=== PATIENT | male | born 1930 | race Two or more races ===

== ENCOUNTER 2017-01-13 00:54 | Inpatient (IN) | payer MEDICARE, MEDICAID ==
[~2017-01-13] VITALS: Ht 165.1 cm; Wt 64.0 kg
[2017-01-13 04:48] VITALS: BP 152/82
[2017-01-13] MEDS ORDERED: LORazepam Inj 2mg/ml 1ml IV PRN (05:15)
[2017-01-13 08:00] VITALS: BP 100/56
[2017-01-13 09:55] LABS: BASOPHILS % (AUTO) 0.7 % (0.0-2.0); EOSINOPHILS % (AUTO) 5.7 % (0.0-3.0); LYMPHOCYTES % (AUTO) 40.8 % (20.0-45.0); MEAN CORPUSCULAR HEMOGLOBIN 33.6 PG (27.0-31.0); MEAN CORPUSCULAR HGB CONC 34.8 G/DL (32.0-36.0); MEAN CORPUSCULAR VOLUME 96 FL (80-99); MONOCYTES % (AUTO) 8.1 % (1.0-10.0); NEUTROPHILS % (AUTO) 44.7 % (45.0-75.0); PLATELET COUNT 206 K/UL (150-450); RED BLOOD COUNT 3.21 M/UL (4.70-6.10); RED CELL DISTRIBUTION WIDTH 12.2 % (11.6-14.8); WHITE BLOOD COUNT 4.8 K/UL (4.8-10.8)
--- NOTE | 2017-01-13 09:58 | Consultation ---
History of Present Illness General Date patient seen: Jan 13, 2017 Referring physician: Dr. Weston Reason for Consultation: inpatient manageemnt Present Illness HPI 86 year old male with hx of CVA, dementia, bed bound lives at home with 24 hour care-housekeeper caregiver was taken to [facility] with CC of new onset seizures. He was treated initially and was [place] [facility] [place]. Pt's grand daughter is at the bed site who gives the PMH. Pt looks comfortable. Apparently understands an indigenous dialect of [place] language. Allergies: Coded Allergies: NO KNOWN ALLERGIES (Verified Allergy, Unknown, 01/13/17) Patient History Healthcare decision maker Resuscitation status Full Code Advanced Directive on File No Past Medical/Surgical History Past Medical/Surgical History: (1) Dementia (2) CVA (cerebral vascular accident) (3) Limited mobility (4) At high risk for aspiration Review of Systems All Other Systems: negative except mentioned in HPI Physical Exam General Appearance: WD/WN Lines, tubes and drains: peripheral, central line, trach HEENT: normocephalic, atraumatic Neck: non-tender, normal alignment Respiratory/Chest: chest wall non-tender, normal breath sounds Breasts: no masses Cardiovascular/Chest: normal peripheral pulses Abdomen: normal bowel sounds Last 24 Hour Vital Signs Date Time Temp Pulse Resp B/P (MAP) Pulse Ox O2 Delivery O2 Flow Rate FiO2 01/13/17 08:00 97.7 56 21 100/56 96 Nasal Cannula 2.0 01/13/17 04:48 97.9 71 18 152/82 96 Nasal Cannula 2.8 01/13/17 04:10 70 Laboratory Tests Test 01/13/17 09:27 White Blood Count Pending Red Blood Count Pending Hemoglobin Pending Hematocrit Pending Mean Corpuscular Volume Pending Mean Corpuscular Hemoglobin Pending Mean Corpuscular Hemoglobin Concent Pending Red Cell Distribution Width Pending Platelet Count Pending Mean Platelet Volume Pending Neutrophils (%) (Auto) Pending Lymphocytes (%) (Auto) Pending Monocytes (%) (Auto) Pending Eosinophils (%) (Auto) Pending Basophils (%) (Auto) Pending Sodium Level Pending Potassium Level Pending Chloride Level Pending Carbon Dioxide Level Pending Blood Urea Nitrogen Pending Creatinine Pending Estimat Glomerular Filtration Rate Pending Glucose Level Pending Calcium Level Pending Phosphorus Level Pending Magnesium Level Pending Total Bilirubin Pending Aspartate Amino Transf (AST/SGOT) Pending Alanine Aminotransferase (ALT/SGPT) Pending Alkaline Phosphatase Pending Troponin I Pending Total Protein Pending Albumin Pending Globulin Pending Triglycerides Level Pending Cholesterol Level Pending LDL Cholesterol Pending HDL Cholesterol Pending Cholesterol/HDL Ratio Pending Thyroid Stimulating Hormone (TSH) Pending Height (Feet): 5 Height (Inches): 5.00 Weight (Pounds): 141 Medications Current Medications Medications (Trade) Dose Ordered Sig/Jere Route PRN Reason Start Time Stop Time Status Last Admin Dose Admin Dextrose/Sodium Chloride 1,000 ml @ 75 mls/hr [id number] IV 01/13/17 09:00 02/12/17 08:59 UNV Heparin Sodium (Porcine) (Heparin 5000 units/ml) 5,000 units EVERY 12 HOURS SUBQ 01/13/17 09:00 02/12/17 08:59 UNV Levetiracetam 100 ml @ 400 mls/hr Q12HR IVPB 01/13/17 09:00 02/12/17 08:59 UNV Lorazepam (Ativan 2mg/ml 1ml) 2 mg Q1HR PRN IV For Seizures 01/13/17 05:15 01/20/17 05:14 Assessment/Plan Problem List: (1) At high risk for aspiration ICD Codes: Z91.89 - Other specified personal risk factors, not elsewhere classified SNOMED: 561293691 (2) New onset seizure ICD Codes: R56.9 - Unspecified convulsions SNOMED: 21072178 (3) CVA (cerebral vascular accident) ICD Codes: I63.9 - Cerebral infarction, unspecified SNOMED: 088949468 (4) Limited mobility ICD Codes: Z74.09 - Other reduced mobility SNOMED: 1737519 (5) Dementia ICD Codes: F03.90 - Unspecified dementia without behavioral disturbance SNOMED: 14104982 Assessment/Plan neuro evaluation seizure precaution swallow study echo doppler of carotid artery pt/ot home safety evaluation. SAIDA MAYER Jan 13, 2017 09:58
[2017-01-13 10:24] LABS: ALANINE AMINOTRANSFERASE 9 U/L (12-78); ALBUMIN/GLOBULIN RATIO 0.8 (1.0-2.7); ANION GAP 5 mmol/L (5-15); ASPARTATE AMINO TRANSFERASE 15 U/L (15-37); CALCIUM 8.5 MG/DL (8.5-10.1); CARBON DIOXIDE 26 MMOL/L (21-32); CHLORIDE 111 MMOL/L (98-107); CHOLESTEROL 177 MG/DL (< 200); CHOLESTEROL/HDL RATIO 3.4 (3.3-4.4); CREATININE 0.7 MG/DL (0.55-1.30); POTASSIUM 3.7 MMOL/L (3.5-5.1); SODIUM 142 MMOL/L (136-145); THYROID STIMULATING HORMONE 8.644 uiU/mL (0.358-3.740); TOTAL PROTEIN 5.7 G/DL (6.4-8.2)
[2017-01-13] MEDS ORDERED: levETIRAcetam 1,000mg/NS100ml 100 ML IVPB SCH (10:30)
[2017-01-13] MEDS: D5 1/2NS 1,000 ML IV SCH (10:44)
[2017-01-13 12:00] VITALS: BP 111/68
[2017-01-13] MEDS: Heparin 5000 units/ml inj SUBQ SCH ×2 (12:47→21:38)
--- NOTE | 2017-01-13 13:16 | History & Physical ---
History and Physical History & Physicial Dictated for Int Med-Dr Weston [id number]. SAGE ORTEGA Jan 13, 2017 13:16
[2017-01-13] MEDS ORDERED: Analgesic Balm 15gm TOPIC PRN (14:00)
--- NOTE | 2017-01-13 14:46 | Neurology Progress Note ---
Objective Physical Exam Last Vital Signs Date Time Temp Pulse Resp B/P (MAP) Pulse Ox O2 Delivery O2 Flow Rate FiO2 01/13/17 12:00 59 01/13/17 12:00 97.5 19 111/68 98 Nasal Cannula 2.0 Laboratory Tests Test 01/13/17 09:27 White Blood Count 4.8 K/UL (4.8-10.8) Red Blood Count 3.21 M/UL (4.70-6.10) L Hemoglobin 10.8 G/DL (14.2-18.0) L Hematocrit 30.9 % (42.0-52.0) L Mean Corpuscular Volume 96 FL (80-99) Mean Corpuscular Hemoglobin 33.6 PG (27.0-31.0) H Mean Corpuscular Hemoglobin Concent 34.8 G/DL (32.0-36.0) Red Cell Distribution Width 12.2 % (11.6-14.8) Platelet Count 206 K/UL (150-450) Mean Platelet Volume 6.0 FL (6.5-10.1) L Neutrophils (%) (Auto) 44.7 % (45.0-75.0) L Lymphocytes (%) (Auto) 40.8 % (20.0-45.0) Monocytes (%) (Auto) 8.1 % (1.0-10.0) Eosinophils (%) (Auto) 5.7 % (0.0-3.0) H Basophils (%) (Auto) 0.7 % (0.0-2.0) Sodium Level 142 MMOL/L (136-145) Potassium Level 3.7 MMOL/L (3.5-5.1) Chloride Level 111 MMOL/L (98-107) H Carbon Dioxide Level 26 MMOL/L (21-32) Anion Gap 5 mmol/L (5-15) Blood Urea Nitrogen 15 mg/dL (7-18) Creatinine 0.7 MG/DL (0.55-1.30) Estimat Glomerular Filtration Rate mL/min (>60) Glucose Level 94 MG/DL (74-106) Calcium Level 8.5 MG/DL (8.5-10.1) Phosphorus Level 4.0 MG/DL (2.5-4.9) Magnesium Level 2.0 MG/DL (1.8-2.4) Total Bilirubin 0.7 MG/DL (0.2-1.0) Aspartate Amino Transf (AST/SGOT) 15 U/L (15-37) Alanine Aminotransferase (ALT/SGPT) 9 U/L (12-78) L Alkaline Phosphatase 115 U/L (46-116) Troponin I 0.044 ng/mL (0.000-0.056) Total Protein 5.7 G/DL (6.4-8.2) L Albumin 2.5 G/DL (3.4-5.0) L Globulin 3.2 g/dL Albumin/Globulin Ratio 0.8 (1.0-2.7) L Triglycerides Level 65 MG/DL (30-150) Cholesterol Level 177 MG/DL (< 200) LDL Cholesterol 119 mg/dL (<100) H HDL Cholesterol 52 MG/DL (40-60) Cholesterol/HDL Ratio 3.4 (3.3-4.4) Thyroid Stimulating Hormone (TSH) 8.644 uiU/mL (0.358-3.740) Impression/Recommendations Problems: (1) new onset seizure disorder (2) 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
[2017-01-13 16:00] VITALS: BP 114/63
--- NOTE | 2017-01-13 18:45 | History and Physical Report ---
DATE OF ADMISSION: 01/13/2017 CHIEF COMPLAINT: The patient is an 86-year-old male who presents with a chief complaint of new onset seizure. HISTORY OF PRESENT ILLNESS: The patient had a cerebrovascular accident in [place] in August 2016. The patient has a resultant left-sided hemiparesis. The patient apparently had a closed head injury status post fall in August in [place]. Much of the history and physical is obtained from the patient's family, who is at the bedside. According to the patient's granddaughter and his daughter, the patient had a witnessed seizure lasting about 10 p.m. The patient states that his left eye was twitching and his left arm was convulsing. The patient had another witnessed seizure when the patient was placed into the ambulance. The patient initially presented to [facility] Emergency Room. The patient is transferred to [facility] for insurance purposes. The patient is admitted for new onset seizure and possible new cerebrovascular accident. PAST MEDICAL HISTORY: Significant for: 1. Cerebrovascular accident in August 2016 as above. 2. 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 3. Closed head injury in August 2016 as above. PAST SURGICAL HISTORY: Significant for cholecystectomy. CURRENT MEDICATIONS: [id number] Tylenol and ibuprofen. ALLERGIES: No known drug allergies. SOCIAL HISTORY: The patient lives with his adult daughter and granddaughter. The patient denies tobacco or alcohol use. The patient is . REVIEW OF SYSTEMS: CONSTITUTIONAL: The patient denies weight loss or weight gain. The patient denies fevers or chills. HEENT: The patient denies ear or throat pain. The patient denies headache. CARDIOVASCULAR: The patient denies palpitations or chest pain. CHEST: The patient denies wheeze or shortness of breath. ABDOMINAL: The patient denies nausea, vomiting, diarrhea, or constipation. GENITOURINARY: The patient denies dysuria or increased frequency of urination. The patient denies fecal or urine incontinence. NEUROLOGICAL: The patient complains of seizure-like activity as above. The patient denies generalized weakness. The patient does have a history of left-sided hemiparesis. PHYSICAL EXAMINATION: VITAL SIGNS: Temperature 97.9 degrees, respirations 18, pulse 71, and blood pressure 152/82. GENERAL: The patient is a well-developed, well-nourished, male, in no apparent distress. HEENT: Eyes, pupils are equal and responsive to light and accommodation. Extraocular movements are intact. NECK: Supple without lymphadenopathy. CHEST: Lungs are clear to auscultation bilaterally without wheezes or rales. CARDIOVASCULAR: Regular rhythm and rate. S1 and S2 are normal without murmurs, rubs, or gallops. ABDOMEN: Soft, nontender, and nondistended. Positive bowel sounds. No evidence of hepatosplenomegaly. Currently, no rebound or guarding noted. RECTAL: Refused. GENITAL: Refused. EXTREMITIES: Negative for clubbing, cyanosis, or edema. NEUROLOGICAL: The patient does have a left 3/5 motor strength compared to the right 5/5. Deep tendon reflexes are 2+ plantar. LABORATORY STUDIES: WBC 7.0, hemoglobin 12.0, hematocrit 36.3, and platelets 225,000. A CT of the brain was reported as no acute bleed, mass effect, or shift. There is evidence of a remote (old) right MCA territory infarct. Sodium 136, potassium 3.1, chloride 106, CO2 15, BUN 18, creatinine 0.94, and glucose 126. Troponin less than 0.02. Urinalysis was within normal limits. ASSESSMENT: This is an 86-year-old male: 1. New onset seizure. 2. History of cerebrovascular accident. 3. Left hemiplegia. 4. Closed head injury. 5. History of osteoarthritis. TREATMENT: 1. New onset seizure. A Neurology consultation has been obtained with Dr. Karimi. The patient has been placed empirically on Keppra. We will follow recommendations of Neurology, Dr. Karimi. MRI of the brain is pending to rule out acute cerebrovascular accident. 2. Left hemiplegia. Physical therapy and occupational therapy evaluation is pending. 3. History of cerebrovascular disease. 4. History of closed head injury. 5. Osteoarthritis. Carlos Rueda M.D. DR: Fernando JOB#: [id number] CC:
[2017-01-13 19:57] VITALS: BP 132/66
[2017-01-13] MEDS ORDERED: Norco 5mg/325mg tab ORAL PRN (21:00)
--- NOTE | 2017-01-13 21:30 | Consultation ---
DATE OF CONSULTATION: 01/13/2017 NEUROLOGICAL CONSULTATION CONSULTING PHYSICIAN: Bj Karimi M.D. REQUESTING PHYSICIAN: Hans Weston M.D. HISTORY OF PRESENT ILLNESS: This 86-year-old gentleman is seen in neurological consultation to evaluate new onset of seizure activity. According to the family, yesterday around 9 p.m., he complained of a pain in his left upper extremity, then noted to have shaking left arm, shaking spread to the left lower extremity, subsequently he developed generalized clonic-tonic episode. Paramedics were called to the scene. He continued to have tremors in his left upper extremity, and while in the ambulance, he had another episode of generalized seizure. The patient was brought to [facility] emergency room. He was fully sedated. CBC studies revealed mild anemia, hemoglobin 12.2 and hematocrit 36.3. Electrolyte panel with potassium 3.1 and anion gap of 15. His tox screen was negative. He was assessed as having compensated metabolic acidosis. CAT scan of the brain was obtained. This revealed old right MCA distribution infarct. No evidence of acute ischemic abnormality. The patient was transferred for further care to this facility. Lab work was repeated. Continued with anemia, hemoglobin 10.7 and hematocrit 30.9, and his chemistry panel was unremarkable except elevated TSH at 8.644, albumin 2.5, but normal troponin. Since admission till present, there was no further paroxysmal event. The patient, who was initially loaded with Keppra, now maintained on Keppra 1000 mg daily. His current vital signs remained somewhat fluctuating with blood pressure of 152/82, down to 100/56 and heart rate of 56. PAST MEDICAL HISTORY: The patient has a history of acute fall. The patient has a history of, in August of this year, had accidental fall hitting his head, was taken to [facility] in [place] where he was diagnosed with a stroke. He developed left-sided weakness, and since then, he was unable to ambulate. He continued to have discomfort, pain, and aches. He developed headaches on 12/05/2016, and he was taken to [facility] where he was diagnosed with hypothyroidism. Apparently, radiological studies were negative. There were no acute events noted. History of degenerative joint disease, frequent aches and pains in both upper and lower extremities, history of some slight memory issue intermittently, ambulating with walker over the last year mainly due to pain in his knees. SOCIAL HISTORY: Lives with his family. No alcohol. No drug abuse. Nonsmoker. FAMILY HISTORY: Noncontributory. REVIEW OF SYMPTOMS: Currently, it is limited. The patient is still drowsy, but he was able to indicate slight headache and discomfort in his left arm. PHYSICAL EXAMINATION: GENERAL: A well-developed, well-nourished, elderly man, lying comfortably in bed. VITAL SIGNS: Stable. Blood pressure 111/58 and temperature 97.5. HEENT: Head, normocephalic. There is no evidence of trauma. Eyes, ears, and throat are clear. NECK: Supple. No meningeal signs. MUSCULOSKELETAL EXAMINATION: Acute tenderness on palpation of the left shoulder, tenderness on palpation of both knees and both feet. MENTAL STATUS: He is alert and oriented to his name and age. He is able to follow commands. Speech is now fluent. Responding yes or no. CRANIAL NERVE II: Pupils are 2 mm, responding to light and accommodation. Extraocular movements full range. CRANIAL NERVE V: Normal corneal responses. CRANIAL NERVE VII: No facial asymmetry. CRANIAL NERVE VIII: Grossly normal hearing. CRANIAL NERVES IX THROUGH XII: Tongue is in midline. Symmetric palate elevation. MOTOR EXAMINATION: Revealed a flaccid left upper extremity. There is diffuse rigidity in both lower extremities probably antalgic. The patient complained of pain in both knees. He was able to lift against the gravity in both lower extremities. Deep tendon reflexes depressed bilaterally. Plantar responses are flexor on the right, mute on the left. SENSORY EXAMINATION: Normal to pin stimulation. Gait not tested. IMPRESSION: 1. 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 2. New onset of a partial simple seizure activity with secondary generalization. 3. Hypothyroidism. 4. Mild vascular dementia. 5. Osteoarthritis. 6. Degenerative joint disease. 7. Mild anemia. RECOMMENDATION: 1. The patient continue with Keppra 500 mg b.i.d. 2. Electroencephalogram. 3. MRI of the brain is pending. 4. Ecotrin 81 mg q.i.d. 5. Synthroid. 6. Check lipid panel, QUINN, sedimentation rate, and rheumatoid factor as well as coagulation panel. Thank you for allowing me to see this interesting patient in neurological consultation. Bj Toña Karimi DR: BYRON JOB#: [id number] CC:
[2017-01-13] MEDS: levETIRAcetam 500mg/NS100ml 100 ML IVPB SCH (21:35)
[2017-01-14] VITALS: BP 121/71
[2017-01-14] MEDS: D5 1/2NS 1,000 ML IV SCH ×3 (00:02→18:20)
[2017-01-14 04:00] VITALS: BP 141/75
[2017-01-14 06:33] LABS: BASOPHILS % (AUTO) 0.9 % (0.0-2.0); LYMPHOCYTES % (AUTO) 35.1 % (20.0-45.0); MEAN CORPUSCULAR HEMOGLOBIN 33.2 PG (27.0-31.0); MEAN CORPUSCULAR HGB CONC 34.4 G/DL (32.0-36.0); MEAN CORPUSCULAR VOLUME 96 FL (80-99); MEAN PLATELET VOLUME 6.1 FL (6.5-10.1); MONOCYTES % (AUTO) 7.5 % (1.0-10.0); NEUTROPHILS % (AUTO) 48.5 % (45.0-75.0); PLATELET COUNT 212 K/UL (150-450); RED BLOOD COUNT 3.33 M/UL (4.70-6.10); RED CELL DISTRIBUTION WIDTH 12.2 % (11.6-14.8); WHITE BLOOD COUNT 4.5 K/UL (4.8-10.8)
[2017-01-14 06:42] LABS: PROTHROMBIN TIME 10.4 SEC (9.30-11.50)
[2017-01-14 06:59] LABS: ALANINE AMINOTRANSFERASE 9 U/L (12-78); ALBUMIN/GLOBULIN RATIO 0.9 (1.0-2.7); ANION GAP 7 mmol/L (5-15); ASPARTATE AMINO TRANSFERASE 16 U/L (15-37); CALCIUM 8.5 MG/DL (8.5-10.1); CARBON DIOXIDE 26 MMOL/L (21-32); CHLORIDE 108 MMOL/L (98-107); CREATININE 0.8 MG/DL (0.55-1.30); CRP QUANT 1.3 mg/dL (0.00-0.90); LACTATE DEHYDROGENASE 153 U/L (81-234); MAGNESIUM 1.8 MG/DL (1.8-2.4); PHOSPHORUS 3.6 MG/DL (2.5-4.9); POTASSIUM 3.1 MMOL/L (3.5-5.1); SODIUM 141 MMOL/L (136-145); TOTAL PROTEIN 5.6 G/DL (6.4-8.2)
[2017-01-14 07:42] LABS: FOLIC ACID 17.1 NG/ML (3.1-17.5); IRON 68 ug/dL (50-175); TOTAL IRON BINDING CAPACITY 254 ug/dL (250-450)
[2017-01-14 08:00] VITALS: BP 141/63
[2017-01-14 08:11] LABS: RHEUMATOID FACTOR SCREEN <10.0 IU/mL (0.0-13.9)
[2017-01-14 09:05] LABS: ERYTHROCYTE SEDIMENTATION RATE 45 MM/HR (0-30)
[2017-01-14 09:24] LABS: PATH BLOOD SMEAR/OMC SEND TO PATHOLOGIST; RETICULOCYTE COUNT 0.9 % (0.0-2.0)
[2017-01-14] MEDS: levETIRAcetam 500mg/NS100ml 100 ML IVPB SCH ×2 (09:37→22:02)
[2017-01-14] MEDS: Heparin 5000 units/ml inj SUBQ SCH ×2 (09:38→22:03)
[2017-01-14 09:58] LABS: BAND NEUTROPHILS % (MANUAL) 0 % (0-8); BASOPHILS % (MANUAL) 0 % (0-2); EOSINOPHILS % (MANUAL) 14 % (0-3); LYMPHOCYTES % (MANUAL) 35 % (20-45); NEUTROPHILS % (MANUAL) 42 % (45-75); PLATELET ESTIMATE ADEQUATE; PLATELET MORPHOLOGY NORMAL; TOTAL CELLS COUNTED 100
[2017-01-14 12:00] VITALS: BP 128/79
--- NOTE | 2017-01-14 12:21 | Pulmonology Progress Note ---
Assessment/Plan Problems: (1) At high risk for aspiration (2) New onset seizure (3) CVA (cerebral vascular accident) (4) Limited mobility (5) Dementia Assessment/Plan EEG done MRI pending continue iv fluids swallow study supplement K Subjective ROS Limited/Unobtainable: No Interval Events: awake, removing all electrodes Allergies: Coded Allergies: NO KNOWN ALLERGIES (Verified Allergy, Unknown, 01/13/17) Objective Last 24 Hour Vital Signs Date Time Temp Pulse Resp B/P (MAP) Pulse Ox O2 Delivery O2 Flow Rate FiO2 01/14/17 08:00 99.1 62 20 141/63 97 Room Air 01/14/17 04:00 62 01/14/17 04:00 97.7 64 18 141/75 96 Nasal Cannula 4.0 36 01/14/17 00:00 53 01/14/17 00:00 97.7 63 18 121/71 94 01/13/17 20:00 48 01/13/17 19:57 97.3 52 20 132/66 98 Nasal Cannula 4.0 01/13/17 19:41 99 Nasal Cannula 4.0 36 01/13/17 19:41 Nasal Cannula 4.0 36 01/13/17 16:00 55 01/13/17 16:00 97.2 50 20 114/63 99 Nasal Cannula 2.0 Objective Lines, tubes and drains: peripheral HEENT: normocephalic, atraumatic Neck: non-tender, normal alignment Respiratory/Chest: chest wall non-tender, lungs clear Cardiovascular/Chest: normal peripheral pulses, regular rhythm, no gallop/ murmur Abdomen: normal bowel sounds, non tender Genitourinary/Rectal: normal genital exam Extremities: normal range of motion, non-tender General Appearance: WD/WN Laboratory Tests 01/14/17 05:11: White Blood Count 4.5L, Red Blood Count 3.33L, Hemoglobin 11.0L, Hematocrit 32.1L, Mean Corpuscular Volume 96, Mean Corpuscular Hemoglobin 33.2H, Mean Corpuscular Hemoglobin Concent 34.4, Red Cell Distribution Width 12.2, Platelet Count 212, Mean Platelet Volume 6.1L, Neutrophils (%) (Auto) 48.5, Lymphocytes ( %) (Auto) 35.1, Monocytes (%) (Auto) 7.5, Eosinophils (%) (Auto) 8.0H, Basophils (%) (Auto) 0.9, Differential Total Cells Counted 100, Neutrophils % ( Manual) 42L, Lymphocytes % (Manual) 35, Monocytes % (Manual) 9, Eosinophils % ( Manual) 14H, Basophils % (Manual) 0, Band Neutrophils 0, Platelet Estimate Adequate, Platelet Morphology Normal, Erythrocyte Sedimentation Rate 45H, Reticulocyte Count 0.9, Prothrombin Time 10.4, Prothromb Time International Ratio 1.0, Activated Partial Thromboplast Time 34H, Sodium Level 141, Potassium Level 3.1L, Chloride Level 108H, Carbon Dioxide Level 26, Anion Gap 7, Blood Urea Nitrogen 11, Creatinine 0.8, Estimat Glomerular Filtration Rate , Glucose Level 95, Calcium Level 8.5, Phosphorus Level 3.6, Magnesium Level 1.8, Iron Level 68, Total Iron Binding Capacity 254, Percent Iron Saturation 27, Unsaturated Iron Binding 186, Total Bilirubin 1.0, Aspartate Amino Transf (AST/ SGOT) 16, Alanine Aminotransferase (ALT/SGPT) 9L, Alkaline Phosphatase 115, Lactate Dehydrogenase 153, C-Reactive Protein, Quantitative 1.3H, Total Protein 5.6L, Albumin 2.6L, Globulin 3.0, Albumin/Globulin Ratio 0.9L, Vitamin B12 Level > 2000H, Folate 17.1 Current Medications Medications (Trade) Dose Ordered Sig/Jere Route PRN Reason Start Time Stop Time Status Last Admin Dose Admin Acetaminophen/ Hydrocodone Bitart (Refugio 5/325) 1 tab Q4H PRN ORAL Moderate Pain (Pain Scale 4-6) 01/13/17 21:00 01/20/17 20:59 01/13/17 21:58 Dextrose/Sodium Chloride 1,000 ml @ 75 mls/hr [id number] IV 01/13/17 10:30 02/12/17 10:29 01/14/17 00:02 Heparin Sodium (Porcine) (Heparin 5000 units/ml) 5,000 units EVERY 12 HOURS SUBQ 01/13/17 13:00 02/12/17 12:59 01/14/17 09:38 Levetiracetam 100 ml @ 400 mls/hr Q12HR IVPB 01/13/17 21:00 02/12/17 20:59 01/14/17 09:37 Lorazepam (Ativan 2mg/ml 1ml) 2 mg Q1HR PRN IV For Seizures 01/13/17 05:15 01/20/17 05:14 Menthol/Methyl Salicylate (Bengay) 1 applic FOUR TIMES A DAY PRN TOPIC pain 01/13/17 14:00 02/12/17 13:59 01/13/17 13:48 SAIDA MAYER Jan 14, 2017 12:21
[2017-01-14] MEDS ORDERED: Potassium Chloride 40 MEQ in Sodium Chloride 500ML 550 ML IV SCH (13:30)
--- NOTE | 2017-01-14 15:07 | Cardiology Report ---
APPROVED REPORT EXAM: Two-dimensional and M-mode echocardiogram with Doppler and color Doppler. INDICATION Left Ventricular Function M-Mode DIMENSIONS IVSd1.3 (0.7-1.1cm)Left Atrium (MM)5.9 (1.6-4.0cm) LVDd4.2 (3.5-5.6cm)Aortic Root2.3 (2.0-3.7cm) PWd1.1 (0.7-1.1cm)Aortic Cusp Exc.1.3 (1.5-2.0cm) LVDs1.6 (2.5-4.0cm) PWs1.9 cm Normal left ventricular chamber size, systolic function and wall motion. Left ventricular ejection fraction estimated to be 55 %. Mild left ventricular hypertrophy. No evidence of pericardial effusion. Mild left atrial enlargement. Right cardiac chamber sizes are within normal limits. Aortic valve calcification openign inadequately visulaized Thickened mitral valve leaflets with normal excursion. Mild mitral annulus and aortic root calcification. Pulmonic valve not well visualized. Normal tricuspid valve structure. Subcostal views not obtainable. A color flow and spectral Doppler study was performed and revealed: Mild aortic regurgitation. Peak aortic valve gradient of 39 mmHg and a mean of 19 mmHg. Aortic valve area 1.0 cm2 calculated by continuity equation. Mild mitral regurgitation. Mitral diastolic velocities suggest reduced left ventricular relaxation c/w mild LV diastolic dysfunction (Grade I ). Mild tricuspid regurgitation. Tricuspid systolic velocities suggests peak right ventricular systolic pressure of 28 mmHg. Trace pulmonic regurgitation present.
--- NOTE | 2017-01-14 15:12 | Internal Med Progress Note ---
Subjective Date of Service: Jan 14, 2017 Physician Name Carlos Ortega Attending Physician Hans Weston MD Current Medications Medications (Trade) Dose Ordered Sig/Jere Route PRN Reason Start Time Stop Time Status Last Admin Dose Admin Acetaminophen/ Hydrocodone Bitart ([place] 5/325) 1 tab Q4H PRN ORAL Moderate Pain (Pain Scale 4-6) 01/13/17 21:00 01/20/17 20:59 01/13/17 21:58 Dextrose/Sodium Chloride 1,000 ml @ 75 mls/hr [id number] IV 01/13/17 10:30 02/12/17 10:29 01/14/17 13:33 Heparin Sodium (Porcine) (Heparin 5000 units/ml) 5,000 units EVERY 12 HOURS SUBQ 01/13/17 13:00 02/12/17 12:59 01/14/17 09:38 Levetiracetam 100 ml @ 400 mls/hr Q12HR IVPB 01/13/17 21:00 02/12/17 20:59 01/14/17 09:37 Lorazepam (Ativan 2mg/ml 1ml) 2 mg Q1HR PRN IV For Seizures 01/13/17 05:15 01/20/17 05:14 Menthol/Methyl Salicylate ([place]) 1 applic FOUR TIMES A DAY PRN TOPIC pain 01/13/17 14:00 02/12/17 13:59 01/13/17 13:48 Potassium Chloride 40 meq/ Sodium Chloride 570 ml @ 142.5 mls/ hr Q4H IV 01/14/17 13:30 01/14/17 17:29 01/14/17 14:55 Allergies: Coded Allergies: NO KNOWN ALLERGIES (Verified Allergy, Unknown, 01/13/17) ROS Limited/Unobtainable: No Constitutional: Reports: no symptoms HEENT: Reports: no symptoms Cardiovascular: Reports: no symptoms Respiratory: Reports: no symptoms Gastrointestinal/Abdominal: Reports: no symptoms Genitourinary: Reports: no symptoms Neurologic/Psychiatric: Reports: no symptoms Subjective 86 YO M admitted with new onset seizure. Cover for Int Med-Dr Weston. Await MRI brain Objective Last Vital Signs Date Time Temp Pulse Resp B/P (MAP) Pulse Ox O2 Delivery O2 Flow Rate FiO2 01/14/17 12:00 98.3 63 20 128/79 96 Room Air 01/14/17 04:00 4.0 36 General Appearance: WD/WN, no apparent distress, alert EENT: PERRL/EOMI, normal ENT inspection Neck: non-tender, normal alignment, supple, normal inspection Cardiovascular: normal peripheral pulses, normal rate, regular rhythm, no gallop/murmur, no JVD Respiratory/Chest: chest wall non-tender, lungs clear, normal breath sounds, no respiratory distress, no accessory muscle use Abdomen: normal bowel sounds, non tender, soft, no organomegaly, no mass, abnormal bowel sounds Extremities: normal range of motion 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, no motor/sensory deficits Skin: normal pigmentation, warm/dry Laboratory Tests Test 01/14/17 05:11 White Blood Count 4.5 K/UL (4.8-10.8) L Red Blood Count 3.33 M/UL (4.70-6.10) L Hemoglobin 11.0 G/DL (14.2-18.0) L Hematocrit 32.1 % (42.0-52.0) L Mean Corpuscular Volume 96 FL (80-99) Mean Corpuscular Hemoglobin 33.2 PG (27.0-31.0) H Mean Corpuscular Hemoglobin Concent 34.4 G/DL (32.0-36.0) Red Cell Distribution Width 12.2 % (11.6-14.8) Platelet Count 212 K/UL (150-450) Mean Platelet Volume 6.1 FL (6.5-10.1) L Neutrophils (%) (Auto) 48.5 % (45.0-75.0) Lymphocytes (%) (Auto) 35.1 % (20.0-45.0) Monocytes (%) (Auto) 7.5 % (1.0-10.0) Eosinophils (%) (Auto) 8.0 % (0.0-3.0) H Basophils (%) (Auto) 0.9 % (0.0-2.0) Differential Total Cells Counted 100 Neutrophils % (Manual) 42 % (45-75) L Lymphocytes % (Manual) 35 % (20-45) Monocytes % (Manual) 9 % (1-10) Eosinophils % (Manual) 14 % (0-3) H Basophils % (Manual) 0 % (0-2) Band Neutrophils 0 % (0-8) Platelet Estimate Adequate Platelet Morphology Normal Erythrocyte Sedimentation Rate 45 MM/HR (0-30) H Reticulocyte Count 0.9 % (0.0-2.0) Prothrombin Time 10.4 SEC (9.30-11.50) Prothromb Time International Ratio 1.0 (0.9-1.1) Activated Partial Thromboplast Time 34 SEC (23-33) H Sodium Level 141 MMOL/L (136-145) Potassium Level 3.1 MMOL/L (3.5-5.1) L Chloride Level 108 MMOL/L (98-107) H Carbon Dioxide Level 26 MMOL/L (21-32) Anion Gap 7 mmol/L (5-15) Blood Urea Nitrogen 11 mg/dL (7-18) Creatinine 0.8 MG/DL (0.55-1.30) Estimat Glomerular Filtration Rate mL/min (>60) Glucose Level 95 MG/DL (74-106) Calcium Level 8.5 MG/DL (8.5-10.1) Phosphorus Level 3.6 MG/DL (2.5-4.9) Magnesium Level 1.8 MG/DL (1.8-2.4) Iron Level 68 ug/dL (50-175) Total Iron Binding Capacity 254 ug/dL (250-450) Percent Iron Saturation 27 % (15-50) Unsaturated Iron Binding 186 ug/dL (112-346) Total Bilirubin 1.0 MG/DL (0.2-1.0) Aspartate Amino Transf (AST/SGOT) 16 U/L (15-37) Alanine Aminotransferase (ALT/SGPT) 9 U/L (12-78) L Alkaline Phosphatase 115 U/L (46-116) Lactate Dehydrogenase 153 U/L (81-234) C-Reactive Protein, Quantitative 1.3 mg/dL (0.00-0.90) H Total Protein 5.6 G/DL (6.4-8.2) L Albumin 2.6 G/DL (3.4-5.0) L Globulin 3.0 g/dL Albumin/Globulin Ratio 0.9 (1.0-2.7) L Vitamin B12 Level > 2000 PG/ML (193-986) H Folate 17.1 NG/ML (3.1-17.5) Intake and Output 01/14/17 01/15/17 19:00 07:00 # Voids 2 Assessment/Plan Problem List: (1) CVA (cerebral vascular accident) Assessment & Plan: await MRI brain. See neurology note. 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 Cont keppra Status: not improved CARLOS ORTEGA Jan 14, 2017 15:12
[2017-01-14 16:00] VITALS: BP 143/84
[2017-01-14] MEDS ORDERED: D5 1/2NS 1000ml IV ONE (16:08)
[2017-01-14] MEDS ORDERED: Tubing IV Secondary IV ONE (16:08)
[2017-01-14] MEDS ORDERED: Analgesic Balm 15gm TOPIC PRN (18:00)
[2017-01-14] MEDS ORDERED: LORazepam Inj 2mg/ml 1ml IV PRN (18:00)
[2017-01-14 20:00] VITALS: BP 129/57
[2017-01-14] MEDS: LORazepam Inj 2mg/ml 1ml IV PRN (20:19)
[2017-01-14] MEDS ORDERED: Norco 5mg/325mg tab ORAL PRN (21:00)
[2017-01-15] VITALS: BP 146/70
[2017-01-15 04:00] VITALS: BP 135/68
[2017-01-15] MEDS: D5 1/2NS 1,000 ML IV SCH (05:51)
[2017-01-15 07:24] LABS: BASOPHILS % (AUTO) 0.7 % (0.0-2.0); EOSINOPHILS % (AUTO) 0.5 % (0.0-3.0); LYMPHOCYTES % (AUTO) 39.2 % (20.0-45.0); MEAN CORPUSCULAR HEMOGLOBIN 33.4 PG (27.0-31.0); MEAN CORPUSCULAR HGB CONC 35.2 G/DL (32.0-36.0); MEAN CORPUSCULAR VOLUME 95 FL (80-99); MEAN PLATELET VOLUME 5.8 FL (6.5-10.1); MONOCYTES % (AUTO) 7.7 % (1.0-10.0); PLATELET COUNT 232 K/UL (150-450); RED BLOOD COUNT 3.72 M/UL (4.70-6.10); RED CELL DISTRIBUTION WIDTH 11.1 % (11.6-14.8); WHITE BLOOD COUNT 6.3 K/UL (4.8-10.8)
[2017-01-15 07:37] LABS: ANION GAP 12 mmol/L (5-15); CALCIUM 8.9 MG/DL (8.5-10.1); CARBON DIOXIDE 25 MMOL/L (21-32); CHLORIDE 101 MMOL/L (98-107); CREATININE 0.8 MG/DL (0.55-1.30); POTASSIUM 3.1 MMOL/L (3.5-5.1); SODIUM 137 MMOL/L (136-145)
[2017-01-15 08:00] VITALS: BP 140/77
[2017-01-15] MEDS: Heparin 5000 units/ml inj SUBQ SCH ×2 (09:58→21:36)
[2017-01-15] MEDS: levETIRAcetam 500mg/NS100ml 100 ML IVPB SCH ×2 (09:59→21:34)
--- NOTE | 2017-01-15 10:10 | Diagnostic Imaging Report ---
APPROVED REPORT CPT Code: 09383 Vascular Symptoms Dizziness and Vertigo CVA/TIA: Doppler Spectral Velocity Analysis RightLeft BILATERAL: BULB - Imaging reveals irregular, mild plaque (40-50%) in the right and (20-30%) in the left bulbs area. CCA/ICA/ECA: The Doppler spectral flow analysis indicates the degree of stenosis is minimal (10%) in the common carotid, minimal (20-30%) in the internal carotid artery, and the external carotid artery. VERTEBRALS - Imaging reveals both vertebral arteries to be patent, without evidence of stenosis or steal.
--- NOTE | 2017-01-15 10:10 | Diagnostic Imaging Report ---
APPROVED REPORT CPT Code: 53329 Present Symptoms Lower Extremity Pain: Bilateral BILATERAL: Imaging reveals a patent deep venous system bilaterally. There is no evidence of thrombus within the femoral, popliteal or tibial segments. The greater saphenous veins are also within normal limits. Doppler indicates normal spontaneous flow within these segments. Dia Unger RDAZ
--- NOTE | 2017-01-15 10:28 | Internal Med Progress Note ---
Subjective Date of Service: Jan 15, 2017 Physician Name Carlos Ortega Attending Physician Hans Weston MD Current Medications Medications (Trade) Dose Ordered Sig/Jere Route PRN Reason Start Time Stop Time Status Last Admin Dose Admin Acetaminophen/ Hydrocodone Bitart ([place] 5/325) 1 tab Q4H PRN ORAL Moderate Pain (Pain Scale 4-6) 01/14/17 21:00 01/20/17 20:59 01/14/17 18:22 Heparin Sodium (Porcine) (Heparin 5000 units/ml) 5,000 units EVERY 12 HOURS SUBQ 01/14/17 21:00 02/12/17 12:59 01/15/17 09:58 Levetiracetam 100 ml @ 400 mls/hr Q12HR IVPB 01/14/17 21:00 02/12/17 20:59 01/15/17 09:59 Lorazepam (Ativan 2mg/ml 1ml) 1 mg Q4H PRN IV Agitation 01/14/17 19:45 01/21/17 19:44 01/14/17 20:19 Lorazepam (Ativan 2mg/ml 1ml) 2 mg Q1HR PRN IV For Seizures 01/14/17 18:00 01/20/17 05:14 Menthol/Methyl Salicylate (Bengay) 1 applic FOUR TIMES A DAY PRN TOPIC pain 01/14/17 18:00 02/12/17 13:59 Sodium Chloride 1,000 ml @ 75 mls/hr [id number] IV 01/15/17 10:30 02/14/17 10:29 UNV Allergies: Coded Allergies: NO KNOWN ALLERGIES (Verified Allergy, Unknown, 01/13/17) ROS Limited/Unobtainable: No Constitutional: Reports: no symptoms HEENT: Reports: no symptoms Cardiovascular: Reports: no symptoms Respiratory: Reports: no symptoms Gastrointestinal/Abdominal: Reports: no symptoms Genitourinary: Reports: no symptoms Neurologic/Psychiatric: Reports: no symptoms Subjective 86 YO M admitted with new onset seizure. Cover for Int Med-Dr Weston. Await MRI brain. Agitated overnight requiring ativan. Objective Last Vital Signs Date Time Temp Pulse Resp B/P (MAP) Pulse Ox O2 Delivery O2 Flow Rate FiO2 01/15/17 08:00 98.9 71 19 140/77 100 Room Air 01/15/17 04:31 2.0 28 Laboratory Tests Test 01/15/17 05:35 White Blood Count 6.3 K/UL (4.8-10.8) Red Blood Count 3.72 M/UL (4.70-6.10) L Hemoglobin 12.4 G/DL (14.2-18.0) L Hematocrit 35.3 % (42.0-52.0) L Mean Corpuscular Volume 95 FL (80-99) Mean Corpuscular Hemoglobin 33.4 PG (27.0-31.0) H Mean Corpuscular Hemoglobin Concent 35.2 G/DL (32.0-36.0) Red Cell Distribution Width 11.1 % (11.6-14.8) L Platelet Count 232 K/UL (150-450) Mean Platelet Volume 5.8 FL (6.5-10.1) L Neutrophils (%) (Auto) 52.0 % (45.0-75.0) Lymphocytes (%) (Auto) 39.2 % (20.0-45.0) Monocytes (%) (Auto) 7.7 % (1.0-10.0) Eosinophils (%) (Auto) 0.5 % (0.0-3.0) Basophils (%) (Auto) 0.7 % (0.0-2.0) Sodium Level 137 MMOL/L (136-145) Potassium Level 3.1 MMOL/L (3.5-5.1) L Chloride Level 101 MMOL/L (98-107) Carbon Dioxide Level 25 MMOL/L (21-32) Anion Gap 12 mmol/L (5-15) Blood Urea Nitrogen 8 mg/dL (7-18) Creatinine 0.8 MG/DL (0.55-1.30) Estimat Glomerular Filtration Rate mL/min (>60) Glucose Level 98 MG/DL (74-106) Calcium Level 8.9 MG/DL (8.5-10.1) Objective General Appearance: WD/WN, no apparent distress, alert EENT: PERRL/EOMI, normal ENT inspection Neck: non-tender, normal alignment, supple, normal inspection Cardiovascular: normal peripheral pulses, normal rate, regular rhythm, no gallop/murmur, no JVD Respiratory/Chest: chest wall non-tender, lungs clear, normal breath sounds, no respiratory distress, no accessory muscle use Abdomen: normal bowel sounds, non tender, soft, no organomegaly, no mass, abnormal bowel sounds Extremities: normal range of motion 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 See neurology note. 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 Cont keppra Status: unchanged CARLOS ORTEGA Jan 15, 2017 10:28
[2017-01-15] MEDS: NS w/KCl 20mEq 1,000 ML IV SCH ×2 (11:30→21:46)
[2017-01-15 11:39] LABS: OTHERS PATHOLOGIST COMMENT
[2017-01-15 12:00] VITALS: BP 141/78
--- NOTE | 2017-01-15 12:04 | Neurology Progress Note ---
Interim History Interim History ROS Limited/Unobtainable: No Complaints: drowsy Events: reported agitation , now sedated, noted some L oralia twitching Objective Physical Exam Last Vital Signs Date Time Temp Pulse Resp B/P (MAP) Pulse Ox O2 Delivery O2 Flow Rate FiO2 01/15/17 08:00 98.9 71 19 140/77 100 Room Air 01/15/17 04:31 2.0 28 Laboratory Tests Test 01/15/17 05:35 White Blood Count 6.3 K/UL (4.8-10.8) Red Blood Count 3.72 M/UL (4.70-6.10) L Hemoglobin 12.4 G/DL (14.2-18.0) L Hematocrit 35.3 % (42.0-52.0) L Mean Corpuscular Volume 95 FL (80-99) Mean Corpuscular Hemoglobin 33.4 PG (27.0-31.0) H Mean Corpuscular Hemoglobin Concent 35.2 G/DL (32.0-36.0) Red Cell Distribution Width 11.1 % (11.6-14.8) L Platelet Count 232 K/UL (150-450) Mean Platelet Volume 5.8 FL (6.5-10.1) L Neutrophils (%) (Auto) 52.0 % (45.0-75.0) Lymphocytes (%) (Auto) 39.2 % (20.0-45.0) Monocytes (%) (Auto) 7.7 % (1.0-10.0) Eosinophils (%) (Auto) 0.5 % (0.0-3.0) Basophils (%) (Auto) 0.7 % (0.0-2.0) Sodium Level 137 MMOL/L (136-145) Potassium Level 3.1 MMOL/L (3.5-5.1) L Chloride Level 101 MMOL/L (98-107) Carbon Dioxide Level 25 MMOL/L (21-32) Anion Gap 12 mmol/L (5-15) Blood Urea Nitrogen 8 mg/dL (7-18) Creatinine 0.8 MG/DL (0.55-1.30) Estimat Glomerular Filtration Rate mL/min (>60) Glucose Level 98 MG/DL (74-106) Calcium Level 8.9 MG/DL (8.5-10.1) General: well developed, well nourished, no acute distress Head: normocophalic, atraumatic Neck: no rigidity Neurologic Exam Mental Status: other - drowsy, sedated with Ativan Speech: normal speech, no dysarthia Language: normal language, no aphasia Cranial Nerve II: fundus normal Cranial Nerves III, IV, : PERRLA, EOMI, pupils Cranial Nerve VII: normal facial expressions Cranial Nerve VIII: no nystagmus Cranial Nerve IX: gag response Cranial Nerve XI: trapezii function normal Cranial Nerve XII: no tongue atrophy/fasciculations Motor System: other - L arm flaccid Sensory: other Coordination: other Deep Tendon Reflexes: 0 bicep (L), 0 bicep (R), 0 tricep (L), 0 tricep (R), 0 brachioradialis (L), 0 brachioradialis (R), 0 knee (L), 0 knee (R), 0 ankle (L) , 0 ankle (R) Reflexes: mute plantar (L), mute plantar (R) Impression/Recommendations Problems: (1) new onset seizure disorder (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
--- NOTE | 2017-01-15 12:26 | Pulmonology Progress Note ---
Assessment/Plan Problems: (1) At high risk for aspiration (2) New onset seizure (3) CVA (cerebral vascular accident) (4) Limited mobility (5) Dementia Assessment/Plan EEG done MRI pending continue iv fluids swallow study increase Keppra f/u neurology recommendations Subjective ROS Limited/Unobtainable: No Interval Events: episodes of agitation , delirium Allergies: Coded Allergies: NO KNOWN ALLERGIES (Verified Allergy, Unknown, 01/13/17) Objective Last 24 Hour Vital Signs Date Time Temp Pulse Resp B/P (MAP) Pulse Ox O2 Delivery O2 Flow Rate FiO2 01/15/17 08:00 98.9 71 19 140/77 100 Room Air 01/15/17 04:31 97 Nasal Cannula 2.0 28 01/15/17 04:30 Nasal Cannula 2.0 28 01/15/17 04:00 98.7 74 20 135/68 94 Room Air 01/15/17 00:00 98.3 87 20 146/70 96 Room Air 01/14/17 20:00 98.8 69 20 129/57 95 Room Air 01/14/17 19:21 98.5 01/14/17 16:00 98.5 66 20 143/84 97 Room Air Objective Lines, tubes and drains: peripheral HEENT: normocephalic, atraumatic Neck: non-tender, normal alignment Respiratory/Chest: chest wall non-tender, lungs clear Cardiovascular/Chest: normal peripheral pulses, regular rhythm, no gallop/ murmur Abdomen: normal bowel sounds, non tender Genitourinary/Rectal: normal genital exam Extremities: normal range of motion, non-tender Laboratory Tests 01/15/17 05:35: White Blood Count 6.3, Red Blood Count 3.72L, Hemoglobin 12.4L, Hematocrit 35.3L , Mean Corpuscular Volume 95, Mean Corpuscular Hemoglobin 33.4H, Mean Corpuscular Hemoglobin Concent 35.2, Red Cell Distribution Width 11.1L, Platelet Count 232, Mean Platelet Volume 5.8L, Neutrophils (%) (Auto) 52.0, Lymphocytes (%) (Auto) 39.2, Monocytes (%) (Auto) 7.7, Eosinophils (%) (Auto) 0.5, Basophils (%) (Auto) 0.7, Sodium Level 137, Potassium Level 3.1L, Chloride Level 101, Carbon Dioxide Level 25, Anion Gap 12, Blood Urea Nitrogen 8, Creatinine 0.8, Estimat Glomerular Filtration Rate , Glucose Level 98, Calcium Level 8.9 Current Medications Medications (Trade) Dose Ordered Sig/Jere Route PRN Reason Start Time Stop Time Status Last Admin Dose Admin Acetaminophen/ Hydrocodone Bitart ([place] 5/325) 1 tab Q4H PRN ORAL Moderate Pain (Pain Scale 4-6) 01/14/17 21:00 01/20/17 20:59 01/14/17 18:22 Heparin Sodium (Porcine) (Heparin 5000 units/ml) 5,000 units EVERY 12 HOURS SUBQ 01/14/17 21:00 02/12/17 12:59 01/15/17 09:58 Levetiracetam 100 ml @ 400 mls/hr Q12HR IVPB 01/14/17 21:00 02/12/17 20:59 01/15/17 09:59 Lorazepam (Ativan 2mg/ml 1ml) 1 mg Q4H PRN IV Agitation 01/14/17 19:45 01/21/17 19:44 01/14/17 20:19 Lorazepam (Ativan 2mg/ml 1ml) 2 mg Q1HR PRN IV For Seizures 01/14/17 18:00 01/20/17 05:14 01/15/17 11:35 Menthol/Methyl Salicylate (Bengay) 1 applic FOUR TIMES A DAY PRN TOPIC pain 01/14/17 18:00 02/12/17 13:59 Sodium Chloride 1,000 ml @ 75 mls/hr [id number] IV 01/15/17 11:30 02/14/17 11:29 SAIDA MAYER Jan 15, 2017 12:25
--- NOTE | 2017-01-15 13:19 | Diagnostic Imaging Report ---
Indication: Severe altered mental status Technique: sagittal T1 fast spin echo, axial T1 FLAIR, axial T2 FLAIR, axial T2 FS PROPELLER, axial T2* GRE, axial diffusion weighted images. ADC and exponential ADC maps generated Comparison: None Findings: There is motion artifact, which results in some image degradation. There is a large area of encephalomalacia involving the right parietal, temporal, and posterior frontal lobes, consistent with old middle cerebral artery distribution infarct. There is surrounding high T2 signal consistent with gliosis. There is mild ex vacuo dilatation of the body of the right lateral ventricle. There is a smaller focus of restricted diffusion in the parietal lobe posterior to this, which is dark on the ADC map and therefore most likely represents a small area of acute infarction. No other foci of restricted diffusion are demonstrated. No evidence of associated hemorrhage. No mass effect nor midline shift. Is generalized age-related enlargement of ventricles and extra axial CSF spaces. There is periventricular deep white matter chronic ischemic change. The vascular flow voids are preserved. Visualized orbits and sinuses are unremarkable. Impression: Small focus of restricted diffusion the posterior right parietal lobe, consistent with acute infarct. This is nonhemorrhagic Much larger right middle cerebral artery distribution old infarct. Negative for acute intracranial bleed or mass effect Age-related volume loss and chronic deep white matter ischemic change Critical value findings phoned to Dr. Karimi at the time of interpretation
[2017-01-15] MEDS ORDERED: NS 500ML ONE (14:56)
[2017-01-15] MEDS ORDERED: D5 1/2NS 1000ml IV ONE (14:56)
[2017-01-15 16:00] VITALS: BP 136/84
--- NOTE | 2017-01-15 16:00 | Electroencephalogram ---
DATE OF PROCEDURE: 01/14/2017 ELECTROENCEPHALOGRAPHY REPORT REFERRING PHYSICIAN: Hans Wesotn M.D. READING PHYSICIAN: Bj Karimi M.D. PROCEDURE PERFORMED: Electroencephalography. HISTORY: This is an 86-year-old man with history of old right MCA distribution stroke, now presenting with intermittent left upper extremity with twitching suspected to be a seizure event. EEG was requested. Currently, the patient placed on Keppra. No sedation given. TECHNIQUE: During the recording, the patient described as being somewhat restless when awake, but otherwise drowsy or asleep, poorly cooperative due to limited Persian. As the patient was asleep, background activity consisted of poorly identifiable theta activities in the left hemisphere with somewhat higher amplitudes in the right frontal central region with intermittent at least once in 3 second appearing higher voltage delta wave transients in the right temporoparietal, central parietal region with phase reversing at right parietal (P4), and at times spreading to right central region. Throughout the recording including in the awake portions, there was significant delta wave slowing over the right temporoparietal central region ranging 1-3 per second. There were no clinical signs of involuntary movement noted during the recording. IMPRESSION: 1. Abnormal electroencephalography in presence of intermittent phase reversing delta transients in the right central parietal area without clinical signs. 2. Delta slowing in the right hemisphere predominantly central parietotemporal area. COMMENT: The above abnormality indicated the underlying structural lesion in the right central parietal area which corresponded to old stroke, intermittent phase reversing at this area represented epileptogenic activity, and represented high risk of seizure transformation. Clinical correlation advised. Bj Karimi M.D. DR: Valerie JOB#: [id number] CC:
[2017-01-15 20:00] VITALS: BP 146/80
--- NOTE | 2017-01-15 23:48 | Consultation ---
History of Present Illness General Referring physician: Dr. Weston Reason for Consultation: inpatient manageemnt Present Illness HPI 86-year-old male who presents with a chief complaint of new onset seizure. the pt is confused and agitated Allergies: Coded Allergies: NO KNOWN ALLERGIES (Verified Allergy, Unknown, 01/13/17) Patient History Healthcare decision maker Resuscitation status Full Code Advanced Directive on File No Physical Exam Last 24 Hour Vital Signs Date Time Temp Pulse Resp B/P (MAP) Pulse Ox O2 Delivery O2 Flow Rate FiO2 01/15/17 20:00 101.5 84 20 146/80 Room Air 01/15/17 16:00 98.9 79 18 136/84 97 Room Air 01/15/17 12:00 98.6 67 18 141/78 96 Room Air 01/15/17 08:00 98.9 71 19 140/77 100 Room Air 01/15/17 04:31 97 Nasal Cannula 2.0 28 01/15/17 04:30 Nasal Cannula 2.0 28 01/15/17 04:00 98.7 74 20 135/68 94 Room Air 01/15/17 00:00 98.3 87 20 146/70 96 Room Air Intake and Output 01/15/17 01/16/17 19:00 07:00 Intake Total 120 ml Balance 120 ml Intake Oral 120 ml # Voids 5 Laboratory Tests Test 01/15/17 05:35 White Blood Count 6.3 K/UL (4.8-10.8) Red Blood Count 3.72 M/UL (4.70-6.10) L Hemoglobin 12.4 G/DL (14.2-18.0) L Hematocrit 35.3 % (42.0-52.0) L Mean Corpuscular Volume 95 FL (80-99) Mean Corpuscular Hemoglobin 33.4 PG (27.0-31.0) H Mean Corpuscular Hemoglobin Concent 35.2 G/DL (32.0-36.0) Red Cell Distribution Width 11.1 % (11.6-14.8) L Platelet Count 232 K/UL (150-450) Mean Platelet Volume 5.8 FL (6.5-10.1) L Neutrophils (%) (Auto) 52.0 % (45.0-75.0) Lymphocytes (%) (Auto) 39.2 % (20.0-45.0) Monocytes (%) (Auto) 7.7 % (1.0-10.0) Eosinophils (%) (Auto) 0.5 % (0.0-3.0) Basophils (%) (Auto) 0.7 % (0.0-2.0) Sodium Level 137 MMOL/L (136-145) Potassium Level 3.1 MMOL/L (3.5-5.1) L Chloride Level 101 MMOL/L (98-107) Carbon Dioxide Level 25 MMOL/L (21-32) Anion Gap 12 mmol/L (5-15) Blood Urea Nitrogen 8 mg/dL (7-18) Creatinine 0.8 MG/DL (0.55-1.30) Estimat Glomerular Filtration Rate mL/min (>60) Glucose Level 98 MG/DL (74-106) Calcium Level 8.9 MG/DL (8.5-10.1) Height (Feet): 5 Height (Inches): 5.00 Weight (Pounds): 141 Medications Current Medications Medications (Trade) Dose Ordered Sig/Jere Route PRN Reason Start Time Stop Time Status Last Admin Dose Admin Acetaminophen (Tylenol) 650 mg Q6H PRN ORAL Mild Pain/Temp > 100.5 01/15/17 23:30 02/14/17 23:29 Acetaminophen/ Hydrocodone Bitart ([place] 5/325) 1 tab Q4H PRN ORAL Moderate Pain (Pain Scale 4-6) 01/14/17 21:00 01/20/17 20:59 01/14/17 18:22 Ceftriaxone Sodium 1 gm/ Dextrose 55 ml @ 110 mls/hr Q24H IVPB 01/16/17 00:00 01/23/17 00:00 Heparin Sodium (Porcine) (Heparin 5000 units/ml) 5,000 units EVERY 12 HOURS SUBQ 01/14/17 21:00 02/12/17 12:59 01/15/17 21:36 Levetiracetam 100 ml @ 400 mls/hr Q12HR IVPB 01/14/17 21:00 02/12/17 20:59 01/15/17 21:34 Lorazepam (Ativan 2mg/ml 1ml) 1 mg Q4H PRN IV Agitation 01/14/17 19:45 01/21/17 19:44 01/14/17 20:19 Lorazepam (Ativan 2mg/ml 1ml) 2 mg Q1HR PRN IV For Seizures 01/14/17 18:00 01/20/17 05:14 01/15/17 11:35 Menthol/Methyl Salicylate (Bengay) 1 applic FOUR TIMES A DAY PRN TOPIC pain 01/14/17 18:00 02/12/17 13:59 Sodium Chloride 1,000 ml @ 75 mls/hr [id number] IV 01/15/17 11:30 02/14/17 11:29 01/15/17 21:46 Vancomycin HCl 1 gm/Dextrose 275 ml @ 183.708 mls/hr ONCE ONCE IVPB 01/16/17 00:30 01/16/17 01:59 Assessment/Plan Status: stable Assessment/Plan risperdal 2mg qhs Arvin Manrique M.D. Jan 15, 2017 23:48
[2017-01-16] VITALS (7 sets, daily range): BP systolic 120–141; BP diastolic 59–98
[2017-01-16] MEDS ORDERED: Vancomycin 1gm inj IVPB ONE (00:28)
[2017-01-16] MEDS ORDERED: Vancomycin 1 GM in D5W 275 ML IVPB ONE (00:30)
[2017-01-16] MEDS: cefTRIAXone 1 GM in D5W 55 ML IVPB SCH (00:50)
[2017-01-16 06:51] LABS: BASOPHILS % (AUTO) 0.5 % (0.0-2.0); EOSINOPHILS % (AUTO) 0.1 % (0.0-3.0); LYMPHOCYTES % (AUTO) 24.4 % (20.0-45.0); MEAN CORPUSCULAR HEMOGLOBIN 33.2 PG (27.0-31.0); MEAN CORPUSCULAR HGB CONC 35.2 G/DL (32.0-36.0); MEAN CORPUSCULAR VOLUME 94 FL (80-99); MEAN PLATELET VOLUME 6.7 FL (6.5-10.1); MONOCYTES % (AUTO) 10.8 % (1.0-10.0); NEUTROPHILS % (AUTO) 64.3 % (45.0-75.0); PLATELET COUNT 274 K/UL (150-450); RED BLOOD COUNT 4.23 M/UL (4.70-6.10); RED CELL DISTRIBUTION WIDTH 11.8 % (11.6-14.8); WHITE BLOOD COUNT 9.3 K/UL (4.8-10.8)
[2017-01-16 07:05] LABS: ALANINE AMINOTRANSFERASE 12 U/L (12-78); ALBUMIN/GLOBULIN RATIO 0.7 (1.0-2.7); ANION GAP 12 mmol/L (5-15); ASPARTATE AMINO TRANSFERASE 26 U/L (15-37); CALCIUM 8.7 MG/DL (8.5-10.1); CARBON DIOXIDE 24 MMOL/L (21-32); CHLORIDE 99 MMOL/L (98-107); CREATININE 0.9 MG/DL (0.55-1.30); SODIUM 134 MMOL/L (136-145)
[2017-01-16 07:08] LABS: BILIRUBIN,DIRECT 0.4 MG/DL (0.0-0.3)
[2017-01-16 08:12] LABS: MAGNESIUM 1.6 MG/DL (1.8-2.4)
[2017-01-16] MEDS: levETIRAcetam 500mg/NS100ml 100 ML IVPB SCH ×2 (08:22→20:44)
[2017-01-16] MEDS: Heparin 5000 units/ml inj SUBQ SCH ×2 (08:23→20:45)
[2017-01-16] MEDS: NS w/KCl 40mEq 1,000 ML IV SCH ×2 (08:52→22:33)
[2017-01-16] MEDS ORDERED: KCl 10% 40mEq/30ml liquid NG ONE (10:30)
--- NOTE | 2017-01-16 11:14 | Diagnostic Imaging Report ---
Indication: COUGH, chest pain Technique: One view of the chest Comparison: none Findings: There is some retrocardiac atelectasis and/or consolidation. The remainder lungs and pleural spaces are clear. The heart size is normal. There are cholecystectomy clips Impression: Minimal retrocardiac atelectasis and/or consolidation No acute process otherwise
[2017-01-16] MEDS: LORazepam Inj 2mg/ml 1ml IV PRN (14:47)
--- NOTE | 2017-01-16 16:06 | Pulmonology Progress Note ---
Assessment/Plan Problems: (1) At high risk for aspiration (2) New onset seizure (3) CVA (cerebral vascular accident) (4) Limited mobility (5) Dementia Assessment/Plan EEG done MRI reviewed: Impression: Small focus of restricted diffusion the posterior right parietal lobe, consistent with acute infarct. Much larger right middle cerebral artery distribution old infarct. continue iv fluids swallow study increase Keppra f/u neurology recommendations I recommend comfort eating and palliative care Subjective ROS Limited/Unobtainable: No Constitutional: Reports: no symptoms HEENT: Repors: no symptoms Allergies: Coded Allergies: NO KNOWN ALLERGIES (Verified Allergy, Unknown, 01/13/17) Objective Last 24 Hour Vital Signs Date Time Temp Pulse Resp B/P (MAP) Pulse Ox O2 Delivery O2 Flow Rate FiO2 01/16/17 16:02 98.7 80 20 123/69 95 01/16/17 11:18 100.1 84 19 131/74 94 01/16/17 08:09 100.7 83 20 134/68 92 01/16/17 04:00 100.0 52 20 138/67 96 Room Air 01/16/17 00:00 100.9 88 20 141/74 96 Room Air 01/15/17 23:00 Room Air 21 01/15/17 20:00 101.5 84 20 146/80 Room Air Objective Lines, tubes and drains: peripheral HEENT: normocephalic, atraumatic Neck: non-tender, normal alignment Respiratory/Chest: chest wall non-tender, lungs clear Cardiovascular/Chest: normal peripheral pulses, regular rhythm, no gallop/ murmur Abdomen: normal bowel sounds, non tender Genitourinary/Rectal: normal genital exam Extremities: normal range of motion, non-tender Laboratory Tests 01/16/17 05:55: White Blood Count 9.3, Red Blood Count 4.23L, Hemoglobin 14.0L, Hematocrit 39.9L , Mean Corpuscular Volume 94, Mean Corpuscular Hemoglobin 33.2H, Mean Corpuscular Hemoglobin Concent 35.2, Red Cell Distribution Width 11.8, Platelet Count 274, Mean Platelet Volume 6.7, Neutrophils (%) (Auto) 64.3, Lymphocytes (% ) (Auto) 24.4, Monocytes (%) (Auto) 10.8H, Eosinophils (%) (Auto) 0.1, Basophils (%) (Auto) 0.5, Sodium Level 134L, Potassium Level 3.0L, Chloride Level 99, Carbon Dioxide Level 24, Anion Gap 12, Blood Urea Nitrogen 8, Creatinine 0.9, Estimat Glomerular Filtration Rate , Glucose Level 71L, Calcium Level 8.7, Phosphorus Level 3.0, Magnesium Level 1.6L, Total Bilirubin 1.9H, Direct Bilirubin 0.4H, Aspartate Amino Transf (AST/SGOT) 26, Alanine Aminotransferase (ALT/SGPT) 12, Alkaline Phosphatase 130H, Total Protein 7.0, Albumin 2.9L, Globulin 4.1, Albumin/Globulin Ratio 0.7L Current Medications Medications (Trade) Dose Ordered Sig/Jere Route PRN Reason Start Time Stop Time Status Last Admin Dose Admin Acetaminophen (Tylenol) 650 mg Q6H PRN ORAL Mild Pain/Temp > 100.5 01/15/17 23:30 02/14/17 23:29 Acetaminophen/ Hydrocodone Bitart ([place] 5/325) 1 tab Q4H PRN ORAL Moderate Pain (Pain Scale 4-6) 01/14/17 21:00 01/20/17 20:59 01/14/17 18:22 Ceftriaxone Sodium 1 gm/ Dextrose 55 ml @ 110 mls/hr Q24H IVPB 01/16/17 00:00 01/23/17 00:00 01/16/17 00:50 Heparin Sodium (Porcine) (Heparin 5000 units/ml) 5,000 units EVERY 12 HOURS SUBQ 01/14/17 21:00 02/12/17 12:59 01/16/17 08:23 Levetiracetam 100 ml @ 400 mls/hr Q12HR IVPB 01/14/17 21:00 02/12/17 20:59 01/16/17 08:22 Lorazepam (Ativan 2mg/ml 1ml) 1 mg Q4H PRN IV Agitation 01/14/17 19:45 01/21/17 19:44 01/16/17 14:47 Lorazepam (Ativan 2mg/ml 1ml) 2 mg Q1HR PRN IV For Seizures 01/14/17 18:00 01/20/17 05:14 01/15/17 11:35 Menthol/Methyl Salicylate (Bengay) 1 applic FOUR TIMES A DAY PRN TOPIC pain 01/14/17 18:00 02/12/17 13:59 Risperidone (RisperDAL) 2 mg BEDTIME ORAL 01/16/17 21:00 02/15/17 20:59 Sodium Chloride 1,000 ml @ 75 mls/hr [id number] IV 01/16/17 09:00 02/15/17 08:59 01/16/17 08:52 SAIDA MAYER Jan 16, 2017 16:06
--- NOTE | 2017-01-16 16:44 | Internal Med Progress Note ---
Subjective Date of Service: Jan 16, 2017 Physician Name Sage Ortega Attending Physician Hans Weston MD Current Medications Medications (Trade) Dose Ordered Sig/Jere Route PRN Reason Start Time Stop Time Status Last Admin Dose Admin Acetaminophen (Tylenol) 650 mg Q6H PRN ORAL Mild Pain/Temp > 100.5 01/15/17 23:30 02/14/17 23:29 Acetaminophen/ Hydrocodone Bitart ([place] 5/325) 1 tab Q4H PRN ORAL Moderate Pain (Pain Scale 4-6) 01/14/17 21:00 01/20/17 20:59 01/14/17 18:22 Ceftriaxone Sodium 1 gm/ Dextrose 55 ml @ 110 mls/hr Q24H IVPB 01/16/17 00:00 01/23/17 00:00 01/16/17 00:50 Heparin Sodium (Porcine) (Heparin 5000 units/ml) 5,000 units EVERY 12 HOURS SUBQ 01/14/17 21:00 02/12/17 12:59 01/16/17 08:23 Levetiracetam 100 ml @ 400 mls/hr Q12HR IVPB 01/14/17 21:00 02/12/17 20:59 01/16/17 08:22 Lorazepam (Ativan 2mg/ml 1ml) 1 mg Q4H PRN IV Agitation 01/14/17 19:45 01/21/17 19:44 01/16/17 14:47 Lorazepam (Ativan 2mg/ml 1ml) 2 mg Q1HR PRN IV For Seizures 01/14/17 18:00 01/20/17 05:14 01/15/17 11:35 Menthol/Methyl Salicylate (Bengay) 1 applic FOUR TIMES A DAY PRN TOPIC pain 01/14/17 18:00 02/12/17 13:59 Risperidone (RisperDAL) 2 mg BEDTIME ORAL 01/16/17 21:00 02/15/17 20:59 Sodium Chloride 1,000 ml @ 75 mls/hr [id number] IV 01/16/17 09:00 02/15/17 08:59 01/16/17 08:52 Allergies: Coded Allergies: NO KNOWN ALLERGIES (Verified Allergy, Unknown, 01/13/17) ROS Limited/Unobtainable: No Constitutional: Reports: chills, fever HEENT: Reports: no symptoms Cardiovascular: Reports: no symptoms Respiratory: Reports: no symptoms Gastrointestinal/Abdominal: Reports: no symptoms Genitourinary: Reports: no symptoms Neurologic/Psychiatric: Reports: no symptoms Subjective 86 YO M admitted with new onset seizure. Cover for Int Loco-Dr Weston. Await MRI brain. Low grade fever overnight to 100.9 F Objective Last Vital Signs Date Time Temp Pulse Resp B/P (MAP) Pulse Ox O2 Delivery O2 Flow Rate FiO2 01/16/17 16:02 98.7 80 20 123/69 95 01/16/17 04:00 Room Air 01/15/17 23:00 21 01/15/17 04:31 2.0 Laboratory Tests Test 01/16/17 05:55 White Blood Count 9.3 K/UL (4.8-10.8) Red Blood Count 4.23 M/UL (4.70-6.10) L Hemoglobin 14.0 G/DL (14.2-18.0) L Hematocrit 39.9 % (42.0-52.0) L Mean Corpuscular Volume 94 FL (80-99) Mean Corpuscular Hemoglobin 33.2 PG (27.0-31.0) H Mean Corpuscular Hemoglobin Concent 35.2 G/DL (32.0-36.0) Red Cell Distribution Width 11.8 % (11.6-14.8) Platelet Count 274 K/UL (150-450) Mean Platelet Volume 6.7 FL (6.5-10.1) Neutrophils (%) (Auto) 64.3 % (45.0-75.0) Lymphocytes (%) (Auto) 24.4 % (20.0-45.0) Monocytes (%) (Auto) 10.8 % (1.0-10.0) H Eosinophils (%) (Auto) 0.1 % (0.0-3.0) Basophils (%) (Auto) 0.5 % (0.0-2.0) Sodium Level 134 MMOL/L (136-145) L Potassium Level 3.0 MMOL/L (3.5-5.1) L Chloride Level 99 MMOL/L (98-107) Carbon Dioxide Level 24 MMOL/L (21-32) Anion Gap 12 mmol/L (5-15) Blood Urea Nitrogen 8 mg/dL (7-18) Creatinine 0.9 MG/DL (0.55-1.30) Estimat Glomerular Filtration Rate mL/min (>60) Glucose Level 71 MG/DL (74-106) L Calcium Level 8.7 MG/DL (8.5-10.1) Phosphorus Level 3.0 MG/DL (2.5-4.9) Magnesium Level 1.6 MG/DL (1.8-2.4) L Total Bilirubin 1.9 MG/DL (0.2-1.0) H Direct Bilirubin 0.4 MG/DL (0.0-0.3) H Aspartate Amino Transf (AST/SGOT) 26 U/L (15-37) Alanine Aminotransferase (ALT/SGPT) 12 U/L (12-78) Alkaline Phosphatase 130 U/L (46-116) H Total Protein 7.0 G/DL (6.4-8.2) Albumin 2.9 G/DL (3.4-5.0) L Globulin 4.1 g/dL Albumin/Globulin Ratio 0.7 (1.0-2.7) L Objective General Appearance: WD/WN, no apparent distress, alert EENT: PERRL/EOMI, normal ENT inspection Neck: non-tender, normal alignment, supple, normal inspection Cardiovascular: normal peripheral pulses, normal rate, regular rhythm, no gallop/murmur, no JVD Respiratory/Chest: chest wall non-tender, lungs clear, normal breath sounds, no respiratory distress, no accessory muscle use Abdomen: normal bowel sounds, non tender, soft, no organomegaly, no mass, abnormal bowel sounds Extremities: normal range of motion 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 See neurology note. 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 Cont keppra (4) Fever Assessment & Plan: Await urine and blood cultures. CXR=retrocardiac opacity. Start empiric ceftriaxone and vanco. (5) Pneumonia Assessment & Plan: Retrocardiac opacity; continue vanco and ceftriaxone. Await culture results. Status: not improved SAGE ORTEGA Jan 16, 2017 16:44
[2017-01-17] VITALS (7 sets, daily range): BP systolic 86–116; BP diastolic 44–75
[2017-01-17] MEDS: cefTRIAXone 1 GM in D5W 55 ML IVPB SCH ×2 (00:02→23:51)
[2017-01-17 07:15] LABS: BASOPHILS % (AUTO) 0.5 % (0.0-2.0); EOSINOPHILS % (AUTO) 0.2 % (0.0-3.0); LYMPHOCYTES % (AUTO) 17.7 % (20.0-45.0); MEAN CORPUSCULAR HEMOGLOBIN 32.7 PG (27.0-31.0); MEAN CORPUSCULAR HGB CONC 34.1 G/DL (32.0-36.0); MEAN CORPUSCULAR VOLUME 96 FL (80-99); MEAN PLATELET VOLUME 6.4 FL (6.5-10.1); MONOCYTES % (AUTO) 9.8 % (1.0-10.0); NEUTROPHILS % (AUTO) 71.8 % (45.0-75.0); PLATELET COUNT 255 K/UL (150-450); RED CELL DISTRIBUTION WIDTH 12.1 % (11.6-14.8); WHITE BLOOD COUNT 6.7 K/UL (4.8-10.8)
[2017-01-17 07:39] LABS: ANION GAP 11 mmol/L (5-15); CALCIUM 8.3 MG/DL (8.5-10.1); CARBON DIOXIDE 20 MMOL/L (21-32); CHLORIDE 106 MMOL/L (98-107); POTASSIUM 3.8 MMOL/L (3.5-5.1); SODIUM 137 MMOL/L (136-145)
[2017-01-17] MEDS: levETIRAcetam 500mg/NS100ml 100 ML IVPB SCH ×2 (08:52→22:06)
[2017-01-17] MEDS: Heparin 5000 units/ml inj SUBQ SCH ×2 (08:56→22:07)
[2017-01-17] MEDS: D5 1/2NS 1,000 ML IV SCH ×2 (09:29→23:51)
[2017-01-17 10:27] LABS: VITAMIN D 25-OH TOTAL 19 ng/mL (.)
--- NOTE | 2017-01-17 12:38 | Internal Med Progress Note ---
Subjective Date of Service: Jan 17, 2017 Physician Name Sage Ortega Attending Physician Hans Weston MD Current Medications Medications (Trade) Dose Ordered Sig/Jere Route PRN Reason Start Time Stop Time Status Last Admin Dose Admin Acetaminophen (Tylenol) 650 mg Q6H PRN ORAL Mild Pain/Temp > 100.5 01/15/17 23:30 02/14/17 23:29 Acetaminophen/ Hydrocodone Bitart ([place] 5/325) 1 tab Q4H PRN ORAL Moderate Pain (Pain Scale 4-6) 01/14/17 21:00 01/20/17 20:59 01/14/17 18:22 Ceftriaxone Sodium 1 gm/ Dextrose 55 ml @ 110 mls/hr Q24H IVPB 01/16/17 00:00 01/23/17 00:00 01/17/17 00:02 Dextrose/Sodium Chloride 1,000 ml @ 75 mls/hr [id number] IV 01/17/17 10:00 02/16/17 09:59 01/17/17 09:29 Heparin Sodium (Porcine) (Heparin 5000 units/ml) 5,000 units EVERY 12 HOURS SUBQ 01/14/17 21:00 02/12/17 12:59 01/17/17 08:56 Levetiracetam 100 ml @ 400 mls/hr Q12HR IVPB 01/14/17 21:00 02/12/17 20:59 01/17/17 08:52 Lorazepam (Ativan 2mg/ml 1ml) 1 mg Q4H PRN IV Agitation 01/14/17 19:45 01/21/17 19:44 01/16/17 14:47 Lorazepam (Ativan 2mg/ml 1ml) 2 mg Q1HR PRN IV For Seizures 01/14/17 18:00 01/20/17 05:14 01/15/17 11:35 Menthol/Methyl Salicylate (Bengay) 1 applic FOUR TIMES A DAY PRN TOPIC pain 01/14/17 18:00 02/12/17 13:59 Risperidone (RisperDAL) 2 mg BEDTIME ORAL 01/16/17 21:00 02/15/17 20:59 01/16/17 20:43 Allergies: Coded Allergies: NO KNOWN ALLERGIES (Verified Allergy, Unknown, 01/13/17) Subjective 86 YO M admitted with new onset seizure. Now acute cerebral vascular accident. Await video swallow. Cover for Int Loco-Dr Weston. Objective Last Vital Signs Date Time Temp Pulse Resp B/P (MAP) Pulse Ox O2 Delivery O2 Flow Rate FiO2 01/17/17 08:00 97.7 76 18 100/44 95 Room Air 01/15/17 23:00 21 01/15/17 04:31 2.0 Laboratory Tests Test 01/17/17 05:10 White Blood Count 6.7 K/UL (4.8-10.8) Red Blood Count 3.60 M/UL (4.70-6.10) L Hemoglobin 11.8 G/DL (14.2-18.0) L Hematocrit 34.5 % (42.0-52.0) L Mean Corpuscular Volume 96 FL (80-99) Mean Corpuscular Hemoglobin 32.7 PG (27.0-31.0) H Mean Corpuscular Hemoglobin Concent 34.1 G/DL (32.0-36.0) Red Cell Distribution Width 12.1 % (11.6-14.8) Platelet Count 255 K/UL (150-450) Mean Platelet Volume 6.4 FL (6.5-10.1) L Neutrophils (%) (Auto) 71.8 % (45.0-75.0) Lymphocytes (%) (Auto) 17.7 % (20.0-45.0) L Monocytes (%) (Auto) 9.8 % (1.0-10.0) Eosinophils (%) (Auto) 0.2 % (0.0-3.0) Basophils (%) (Auto) 0.5 % (0.0-2.0) Sodium Level 137 MMOL/L (136-145) Potassium Level 3.8 MMOL/L (3.5-5.1) Chloride Level 106 MMOL/L (98-107) Carbon Dioxide Level 20 MMOL/L (21-32) L Anion Gap 11 mmol/L (5-15) Blood Urea Nitrogen 19 mg/dL (7-18) H Creatinine 1.0 MG/DL (0.55-1.30) Estimat Glomerular Filtration Rate mL/min (>60) Glucose Level 80 MG/DL (74-106) Calcium Level 8.3 MG/DL (8.5-10.1) L Microbiology Date/Time Source Procedure Growth Status 01/15/17 23:45 Blood Blood Culture - Preliminary NO GROWTH AFTER 24 HOURS Resulted 01/15/17 23:40 Blood Blood Culture - Preliminary NO GROWTH AFTER 24 HOURS Resulted Objective General Appearance: WD/WN, no apparent distress, alert EENT: PERRL/EOMI, normal ENT inspection Neck: non-tender, normal alignment, supple, normal inspection Cardiovascular: normal peripheral pulses, normal rate, regular rhythm, no gallop/murmur, no JVD Respiratory/Chest: chest wall non-tender, lungs clear, normal breath sounds, no respiratory distress, no accessory muscle use Abdomen: normal bowel sounds, non tender, soft, no organomegaly, no mass, abnormal bowel sounds Extremities: normal range of motion 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 See neurology note. 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 Cont keppra (4) Fever Assessment & Plan: Await urine and blood cultures. CXR=retrocardiac opacity. Start empiric ceftriaxone and vanco. (5) Pneumonia Assessment & Plan: Retrocardiac opacity; continue vanco and ceftriaxone. Await culture results. (6) Dysphagia Assessment & Plan: Await video swallow eval. Status: not improved Assessment/Plan Discharge planning: [facility] fac vs acute rehab SAGE ORTEGA Jan 17, 2017 12:38
--- NOTE | 2017-01-17 14:07 | GI Initial Consult Note ---
Lori Anderson N.P. 01/17/17 1407: History of Present Illness General Date patient seen: Jan 17, 2017 Time patient seen: 13:58 Reason for Hospitalization: CVA Referring physician: Dr. Weston Reason for Consultation: PEG Evaluation Present Illness HPI CHIEF COMPLAINT: The patient is an 86-year-old male who presents with a chief complaint of new onset seizure. HISTORY OF PRESENT ILLNESS: The patient had a cerebrovascular accident in [place] in August 2016. The patient has a resultant left-sided hemiparesis. The patient apparently had a closed head injury status post fall in August in [place]. Much of the history and physical is obtained from the patient's family , who is at the bedside. According to the patient's granddaughter and his daughter, the patient had a witnessed seizure lasting about 10 p.m. The patient states that his left eye was twitching and his left arm was convulsing. The patient had another witnessed seizure when the patient was placed into the ambulance. The patient initially presented to [facility] Emergency Room. The patient is transferred to [facility] for insurance purposes. The patient is admitted for new onset seizure and possible new cerebrovascular accident. GI consulted for PEG evaluation. HPI as noted above. All notes reviewed. ST note reviewed >> recommendation for non-oral PEG vs NGT with oral grat and speech tx. Patient presents today with dysphagia being evaluated for PEG placement. I spoke to the granddaughter Kandace extensively over the phone regarding G-Tube placement and answer any concerns of the patient. She wishes to hold GT placement at this time and relay with other family members prior to making any decisions. Med list reviewed/reconciled: Yes Allergies: Coded Allergies: NO KNOWN ALLERGIES (Verified Allergy, Unknown, 01/13/17) Patient History Limited by: medical condition History Provided By: Medical Record [facility] Narrative PAST MEDICAL HISTORY: Significant for: 1. Cerebrovascular accident in August 2016 as above. 2. 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 3. Closed head injury in August 2016 as above. PAST SURGICAL HISTORY: Significant for cholecystectomy. Social History: Denies: smoking, alcohol use, drug use, other Review of Systems All Other Systems: limited Physical Exam Vital Signs Date Time Temp Pulse Resp B/P (MAP) Pulse Ox O2 Delivery O2 Flow Rate FiO2 01/13/17 08:00 97.7 56 21 100/56 96 Nasal Cannula 2.0 11/25/17 19:41 36 Sp02 EP Interpretation: reviewed, normal Labs Laboratory Tests Test 01/17/17 05:10 White Blood Count 6.7 K/UL (4.8-10.8) Red Blood Count 3.60 M/UL (4.70-6.10) L Hemoglobin 11.8 G/DL (14.2-18.0) L Hematocrit 34.5 % (42.0-52.0) L Mean Corpuscular Volume 96 FL (80-99) Mean Corpuscular Hemoglobin 32.7 PG (27.0-31.0) H Mean Corpuscular Hemoglobin Concent 34.1 G/DL (32.0-36.0) Red Cell Distribution Width 12.1 % (11.6-14.8) Platelet Count 255 K/UL (150-450) Mean Platelet Volume 6.4 FL (6.5-10.1) L Neutrophils (%) (Auto) 71.8 % (45.0-75.0) Lymphocytes (%) (Auto) 17.7 % (20.0-45.0) L Monocytes (%) (Auto) 9.8 % (1.0-10.0) Eosinophils (%) (Auto) 0.2 % (0.0-3.0) Basophils (%) (Auto) 0.5 % (0.0-2.0) Sodium Level 137 MMOL/L (136-145) Potassium Level 3.8 MMOL/L (3.5-5.1) Chloride Level 106 MMOL/L (98-107) Carbon Dioxide Level 20 MMOL/L (21-32) L Anion Gap 11 mmol/L (5-15) Blood Urea Nitrogen 19 mg/dL (7-18) H Creatinine 1.0 MG/DL (0.55-1.30) Estimat Glomerular Filtration Rate mL/min (>60) Glucose Level 80 MG/DL (74-106) Calcium Level 8.3 MG/DL (8.5-10.1) L General Appearance: well appearing, no apparent distress, alert, other Head: normocephalic EENT: PERRL/EOMI, normal ENT inspection Neck: supple Respiratory: normal breath sounds, no respiratory distress Cardiovascular: normal rate Gastrointestinal: normal inspection, non tender, soft, normal bowel sounds, non -distended Rectal: deferred Genitourinary: deferred Musculoskeletal: other - right sided hemaplegia Neurologic: alert, responsive Skin: normal inspection, normal color, no rash, warm/dry, palpation normal, well hydrated Lymphatic: normal inspection, no adenopathy Current Medications Current Medications Medications (Trade) Dose Ordered Sig/Jere Route PRN Reason Start Time Stop Time Status Last Admin Dose Admin Acetaminophen (Tylenol) 650 mg Q6H PRN ORAL Mild Pain/Temp > 100.5 01/15/17 23:30 02/14/17 23:29 Acetaminophen/ Hydrocodone Bitart ([place] 5/325) 1 tab Q4H PRN ORAL Moderate Pain (Pain Scale 4-6) 01/14/17 21:00 01/20/17 20:59 01/14/17 18:22 Ceftriaxone Sodium 1 gm/ Dextrose 55 ml @ 110 mls/hr Q24H IVPB 01/16/17 00:00 01/23/17 00:00 01/17/17 00:02 Dextrose/Sodium Chloride 1,000 ml @ 75 mls/hr [id number] IV 01/17/17 10:00 02/16/17 09:59 01/17/17 09:29 Heparin Sodium (Porcine) (Heparin 5000 units/ml) 5,000 units EVERY 12 HOURS SUBQ 01/14/17 21:00 02/12/17 12:59 01/17/17 08:56 Levetiracetam 100 ml @ 400 mls/hr Q12HR IVPB 01/14/17 21:00 02/12/17 20:59 01/17/17 08:52 Lorazepam (Ativan 2mg/ml 1ml) 1 mg Q4H PRN IV Agitation 01/14/17 19:45 01/21/17 19:44 01/16/17 14:47 Lorazepam (Ativan 2mg/ml 1ml) 2 mg Q1HR PRN IV For Seizures 01/14/17 18:00 01/20/17 05:14 01/15/17 11:35 Menthol/Methyl Salicylate (Bengay) 1 applic FOUR TIMES A DAY PRN TOPIC pain 01/14/17 18:00 02/12/17 13:59 Risperidone (RisperDAL) 2 mg BEDTIME ORAL 01/16/17 21:00 02/15/17 20:59 01/16/17 20:43 GI: Plan Problems: (1) Encounter for PEG (percutaneous endoscopic gastrostomy) (2) Dysphagia (3) new onset seizure disorder (4) 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 anemia work up reviewed supportive care at this time NPO + IVFs monitor H&H, prn transfusions H2B electrolyte replacement fu labs *Note patient is on heparin must be dc'd prior any GI procedure. Discussed with Dr. Denton. Thank you for this patient referral, we will follow. MAURICIO DENTON 01/19/17 1028: History of Present Illness General Reason for Hospitalization: CVA Present Illness Allergies: Coded Allergies: NO KNOWN ALLERGIES (Verified Allergy, Unknown, 01/13/17) GI: Plan Plan The patient was seen and examined at bedside and all new and available data was reviewed in the patients chart. I agree with the above findings, impression and plan. (Patient seen earlier today. Signature stamp does not reflect patient encounter time.). - MD Monica Hamm Anh Zeferino Arriola Jan 17, 2017 14:07 MAURICIO DENTON Jan 19, 2017 10:28
--- NOTE | 2017-01-17 15:48 | Pulmonology Progress Note ---
Assessment/Plan Problems: (1) At high risk for aspiration (2) New onset seizure (3) CVA (cerebral vascular accident) (4) Limited mobility (5) Dementia Assessment/Plan mental status better continue iv fluids swallow study noted increase Keppra f/u neurology recommendations dc planning either home or assisted, pt will benefit from palliative care. Subjective Interval Events: apparently passed the swallow study Allergies: Coded Allergies: NO KNOWN ALLERGIES (Verified Allergy, Unknown, 01/13/17) Objective Last 24 Hour Vital Signs Date Time Temp Pulse Resp B/P (MAP) Pulse Ox O2 Delivery O2 Flow Rate FiO2 01/17/17 13:00 98.4 91 18 116/60 96 Room Air 01/17/17 12:00 100.3 98 18 98/52 96 Room Air 01/17/17 08:00 97.7 76 18 100/44 95 Room Air 01/17/17 04:00 99.5 97 20 86/55 99 01/17/17 00:00 98.9 105 19 99/66 94 01/16/17 22:08 98.4 72 18 120/59 100 01/16/17 20:00 99.0 80 19 137/98 97 Room Air 01/16/17 16:02 98.7 80 20 123/69 95 Objective Lines, tubes and drains: peripheral HEENT: normocephalic, atraumatic Neck: non-tender, normal alignment Respiratory/Chest: chest wall non-tender, lungs clear Cardiovascular/Chest: normal peripheral pulses, regular rhythm, no gallop/ murmur Abdomen: normal bowel sounds, non tender Genitourinary/Rectal: normal genital exam Extremities: normal range of motion, non-tender Microbiology Date/Time Source Procedure Growth Status 01/15/17 23:45 Blood Blood Culture - Preliminary NO GROWTH AFTER 24 HOURS Resulted 01/15/17 23:40 Blood Blood Culture - Preliminary NO GROWTH AFTER 24 HOURS Resulted Laboratory Tests 01/17/17 05:10: White Blood Count 6.7, Red Blood Count 3.60L, Hemoglobin 11.8L, Hematocrit 34.5L , Mean Corpuscular Volume 96, Mean Corpuscular Hemoglobin 32.7H, Mean Corpuscular Hemoglobin Concent 34.1, Red Cell Distribution Width 12.1, Platelet Count 255, Mean Platelet Volume 6.4L, Neutrophils (%) (Auto) 71.8, Lymphocytes ( %) (Auto) 17.7L, Monocytes (%) (Auto) 9.8, Eosinophils (%) (Auto) 0.2, Basophils (%) (Auto) 0.5, Sodium Level 137, Potassium Level 3.8, Chloride Level 106, Carbon Dioxide Level 20L, Anion Gap 11, Blood Urea Nitrogen 19H, Creatinine 1.0, Estimat Glomerular Filtration Rate , Glucose Level 80, Calcium Level 8.3L Current Medications Medications (Trade) Dose Ordered Sig/Jere Route PRN Reason Start Time Stop Time Status Last Admin Dose Admin Acetaminophen (Tylenol) 650 mg Q6H PRN ORAL Mild Pain/Temp > 100.5 01/15/17 23:30 02/14/17 23:29 Acetaminophen/ Hydrocodone Bitart ([place] 5/325) 1 tab Q4H PRN ORAL Moderate Pain (Pain Scale 4-6) 01/14/17 21:00 01/20/17 20:59 01/14/17 18:22 Ceftriaxone Sodium 1 gm/ Dextrose 55 ml @ 110 mls/hr Q24H IVPB 01/16/17 00:00 01/23/17 00:00 01/17/17 00:02 Dextrose/Sodium Chloride 1,000 ml @ 75 mls/hr [id number] IV 01/17/17 10:00 02/16/17 09:59 01/17/17 09:29 Heparin Sodium (Porcine) (Heparin 5000 units/ml) 5,000 units EVERY 12 HOURS SUBQ 01/14/17 21:00 02/12/17 12:59 01/17/17 08:56 Levetiracetam 100 ml @ 400 mls/hr Q12HR IVPB 01/14/17 21:00 02/12/17 20:59 01/17/17 08:52 Lorazepam (Ativan 2mg/ml 1ml) 1 mg Q4H PRN IV Agitation 01/14/17 19:45 01/21/17 19:44 01/16/17 14:47 Lorazepam (Ativan 2mg/ml 1ml) 2 mg Q1HR PRN IV For Seizures 01/14/17 18:00 01/20/17 05:14 01/15/17 11:35 Magnesium Sulfate 100 ml @ 100 mls/hr Q1H IVPB 01/17/17 14:45 01/17/17 16:44 01/17/17 15:34 Menthol/Methyl Salicylate (Bengay) 1 applic FOUR TIMES A DAY PRN TOPIC pain 01/14/17 18:00 02/12/17 13:59 Risperidone (RisperDAL) 2 mg BEDTIME ORAL 01/16/17 21:00 02/15/17 20:59 01/16/17 20:43 SAIDA MAYER Jan 17, 2017 15:48
--- NOTE | 2017-01-17 17:25 | Diagnostic Imaging Report ---
Indications: DYSPHAGIA Technique: Patient ingested multiple substances under the supervision of speech pathology. Video fluoroscopic recording performed. Total fluoroscopy time 255 seconds. Total dose area product [id number] mGycm2 Comparison: none Findings: There is delay in initiation of deglutition there is early pooling in the vallecula and puriform sinuses. Aspiration of thin liquid barium was observed been taken from a cup. This occurred after swallowing. With the remaining substances, early pooling in the vallecula and puriform sinuses noted. No hilton aspiration or penetration. Impression: Positive for aspiration of thin liquid barium Please refer to speech pathology report for more detailed analysis
[2017-01-18] VITALS: BP 94/56
--- NOTE | 2017-01-18 00:45 | General Progress Note ---
Assessment/Plan Status: stable Assessment/Plan delirium agitation -cont current meds Subjective Date patient seen: Jan 17, 2017 Neurologic/Psychiatric: Reports: anxiety, depressed, emotional problems Allergies: Coded Allergies: NO KNOWN ALLERGIES (Verified Allergy, Unknown, 01/13/17) Objective Last 24 Hour Vital Signs Date Time Temp Pulse Resp B/P (MAP) Pulse Ox O2 Delivery O2 Flow Rate FiO2 01/17/17 20:00 Room Air 21 01/17/17 20:00 98.2 66 20 108/61 92 01/17/17 20:00 96 Room Air 21 01/17/17 16:00 98.3 86 18 114/75 96 Room Air 01/17/17 13:00 98.4 91 18 116/60 96 Room Air 01/17/17 12:00 100.3 98 18 98/52 96 Room Air 01/17/17 08:00 97.7 76 18 100/44 95 Room Air 01/17/17 04:00 99.5 97 20 86/55 99 Laboratory Tests 01/17/17 05:10: White Blood Count 6.7, Red Blood Count 3.60L, Hemoglobin 11.8L, Hematocrit 34.5L , Mean Corpuscular Volume 96, Mean Corpuscular Hemoglobin 32.7H, Mean Corpuscular Hemoglobin Concent 34.1, Red Cell Distribution Width 12.1, Platelet Count 255, Mean Platelet Volume 6.4L, Neutrophils (%) (Auto) 71.8, Lymphocytes ( %) (Auto) 17.7L, Monocytes (%) (Auto) 9.8, Eosinophils (%) (Auto) 0.2, Basophils (%) (Auto) 0.5, Sodium Level 137, Potassium Level 3.8, Chloride Level 106, Carbon Dioxide Level 20L, Anion Gap 11, Blood Urea Nitrogen 19H, Creatinine 1.0, Estimat Glomerular Filtration Rate , Glucose Level 80, Calcium Level 8.3L Height (Feet): 5 Height (Inches): 5.00 Weight (Pounds): 141 General Appearance: no apparent distress, lethargic, confused Neurologic: disoriented, unresponsive, depressed affect Arvin Manirque M.D. Jan 18, 2017 00:45
[2017-01-18 04:00] VITALS: BP 111/60
[2017-01-18 07:56] LABS: BASOPHILS % (AUTO) 0.7 % (0.0-2.0); EOSINOPHILS % (AUTO) 3.7 % (0.0-3.0); MEAN CORPUSCULAR HEMOGLOBIN 32.1 PG (27.0-31.0); MEAN CORPUSCULAR HGB CONC 33.2 G/DL (32.0-36.0); MEAN CORPUSCULAR VOLUME 97 FL (80-99); MEAN PLATELET VOLUME 6.3 FL (6.5-10.1); MONOCYTES % (AUTO) 7.2 % (1.0-10.0); NEUTROPHILS % (AUTO) 61.3 % (45.0-75.0); PLATELET COUNT 264 K/UL (150-450); RED BLOOD COUNT 3.26 M/UL (4.70-6.10); RED CELL DISTRIBUTION WIDTH 12.1 % (11.6-14.8); WHITE BLOOD COUNT 5.1 K/UL (4.8-10.8)
[2017-01-18 07:58] LABS: ANION GAP 9 mmol/L (5-15); CALCIUM 8.3 MG/DL (8.5-10.1); CARBON DIOXIDE 22 MMOL/L (21-32); CHLORIDE 108 MMOL/L (98-107); CREATININE 0.7 MG/DL (0.55-1.30); POTASSIUM 3.1 MMOL/L (3.5-5.1); SODIUM 139 MMOL/L (136-145)
[2017-01-18 08:15] VITALS: BP 137/71
[2017-01-18] MEDS: levETIRAcetam 500mg/NS100ml 100 ML IVPB SCH ×2 (09:21→22:28)
[2017-01-18] MEDS: Heparin 5000 units/ml inj SUBQ SCH ×2 (09:22→20:33)
--- NOTE | 2017-01-18 09:55 | GI Progress Note ---
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 Mix. Assessment/Plan PEG scheduled for tomorrow, family has consented. - NPO @ [place]. - hold heparin tonight @ 2100. monitor H&H, prn transfusions H2B electrolyte replacement fu labs *Note patient is on heparin must be dc'd prior any GI procedure. Subjective Subjective limited Objective Last 24 Hour Vital Signs Date Time Temp Pulse Resp B/P (MAP) Pulse Ox O2 Delivery O2 Flow Rate FiO2 01/18/17 04:00 98.0 67 18 111/60 98 01/18/17 00:00 98.3 79 19 94/56 91 01/17/17 20:00 Room Air 21 01/17/17 20:00 98.2 66 20 108/61 92 01/17/17 20:00 96 Room Air 21 01/17/17 16:00 98.3 86 18 114/75 96 Room Air 01/17/17 13:00 98.4 91 18 116/60 96 Room Air 01/17/17 12:00 100.3 98 18 98/52 96 Room Air Laboratory Tests Test 01/18/17 07:10 White Blood Count 5.1 K/UL (4.8-10.8) Red Blood Count 3.26 M/UL (4.70-6.10) L Hemoglobin 10.5 G/DL (14.2-18.0) L Hematocrit 31.5 % (42.0-52.0) L Mean Corpuscular Volume 97 FL (80-99) Mean Corpuscular Hemoglobin 32.1 PG (27.0-31.0) H Mean Corpuscular Hemoglobin Concent 33.2 G/DL (32.0-36.0) Red Cell Distribution Width 12.1 % (11.6-14.8) Platelet Count 264 K/UL (150-450) Mean Platelet Volume 6.3 FL (6.5-10.1) L Neutrophils (%) (Auto) 61.3 % (45.0-75.0) Lymphocytes (%) (Auto) 27.0 % (20.0-45.0) Monocytes (%) (Auto) 7.2 % (1.0-10.0) Eosinophils (%) (Auto) 3.7 % (0.0-3.0) H Basophils (%) (Auto) 0.7 % (0.0-2.0) Sodium Level 139 MMOL/L (136-145) Potassium Level 3.1 MMOL/L (3.5-5.1) L Chloride Level 108 MMOL/L (98-107) H Carbon Dioxide Level 22 MMOL/L (21-32) Anion Gap 9 mmol/L (5-15) Blood Urea Nitrogen 16 mg/dL (7-18) Creatinine 0.7 MG/DL (0.55-1.30) Estimat Glomerular Filtration Rate mL/min (>60) Glucose Level 132 MG/DL (74-106) H Calcium Level 8.3 MG/DL (8.5-10.1) L Magnesium Level 2.1 MG/DL (1.8-2.4) Height (Feet): 5 Height (Inches): 5.00 Weight (Pounds): 141 General Appearance: no apparent distress, alert Cardiovascular: normal rate Respiratory/Chest: normal breath sounds, no respiratory distress Abdominal Exam: normal bowel sounds, non tender, soft Extremities: non-tender, other - R side hemiparesis Lori Anderson N.PDax Jan 18, 2017 09:55
[2017-01-18] MEDS: D5 1/2NS w/KCl 20mEq 1,000 ML IV SCH (11:35)
[2017-01-18 11:54] VITALS: BP 131/81
[2017-01-18] MEDS ORDERED: D5 1/2NS 1000ml IV ONE (13:29)
[2017-01-18] MEDS ORDERED: Tubing IV Secondary IV ONE (13:29)
--- NOTE | 2017-01-18 14:40 | Internal Med Progress Note ---
Subjective Date of Service: Jan 18, 2017 Physician Name Sage Ortega Attending Physician Hans eWston MD Current Medications Medications (Trade) Dose Ordered Sig/Jere Route PRN Reason Start Time Stop Time Status Last Admin Dose Admin Acetaminophen (Tylenol) 650 mg Q6H PRN ORAL Mild Pain/Temp > 100.5 01/15/17 23:30 02/14/17 23:29 Acetaminophen/ Hydrocodone Bitart ([place] 5/325) 1 tab Q4H PRN ORAL Moderate Pain (Pain Scale 4-6) 01/14/17 21:00 01/20/17 20:59 01/14/17 18:22 Ceftriaxone Sodium 1 gm/ Dextrose 55 ml @ 110 mls/hr Q24H IVPB 01/16/17 00:00 01/23/17 00:00 01/17/17 23:51 Dextrose/ Electrolytes 1,000 ml @ 75 mls/hr [id number] IV 01/18/17 11:00 02/17/17 10:59 01/18/17 11:35 Heparin Sodium (Porcine) (Heparin 5000 units/ml) 5,000 units EVERY 12 HOURS SUBQ 01/14/17 21:00 02/12/17 12:59 01/18/17 09:22 Levetiracetam 100 ml @ 400 mls/hr Q12HR IVPB 01/14/17 21:00 02/12/17 20:59 01/18/17 09:21 Lorazepam (Ativan 2mg/ml 1ml) 1 mg Q4H PRN IV Agitation 01/14/17 19:45 01/21/17 19:44 01/16/17 14:47 Lorazepam (Ativan 2mg/ml 1ml) 2 mg Q1HR PRN IV For Seizures 01/14/17 18:00 01/20/17 05:14 01/15/17 11:35 Menthol/Methyl Salicylate (Bengay) 1 applic FOUR TIMES A DAY PRN TOPIC pain 01/14/17 18:00 02/12/17 13:59 Risperidone (RisperDAL) 2 mg BEDTIME ORAL 01/16/17 21:00 02/15/17 20:59 01/17/17 22:06 Allergies: Coded Allergies: NO KNOWN ALLERGIES (Verified Allergy, Unknown, 01/13/17) ROS Limited/Unobtainable: Yes Subjective 86 YO M admitted with new onset seizure. Now acute cerebral vascular accident. Cover for Int Loco-Dr Weston. PEG placement scheduled for 01/19/17. Objective Last Vital Signs Date Time Temp Pulse Resp B/P (MAP) Pulse Ox O2 Delivery O2 Flow Rate FiO2 01/18/17 11:54 99.8 81 19 131/81 94 01/17/17 20:00 Room Air 21 01/15/17 04:31 2.0 Laboratory Tests Test 01/18/17 07:10 White Blood Count 5.1 K/UL (4.8-10.8) Red Blood Count 3.26 M/UL (4.70-6.10) L Hemoglobin 10.5 G/DL (14.2-18.0) L Hematocrit 31.5 % (42.0-52.0) L Mean Corpuscular Volume 97 FL (80-99) Mean Corpuscular Hemoglobin 32.1 PG (27.0-31.0) H Mean Corpuscular Hemoglobin Concent 33.2 G/DL (32.0-36.0) Red Cell Distribution Width 12.1 % (11.6-14.8) Platelet Count 264 K/UL (150-450) Mean Platelet Volume 6.3 FL (6.5-10.1) L Neutrophils (%) (Auto) 61.3 % (45.0-75.0) Lymphocytes (%) (Auto) 27.0 % (20.0-45.0) Monocytes (%) (Auto) 7.2 % (1.0-10.0) Eosinophils (%) (Auto) 3.7 % (0.0-3.0) H Basophils (%) (Auto) 0.7 % (0.0-2.0) Sodium Level 139 MMOL/L (136-145) Potassium Level 3.1 MMOL/L (3.5-5.1) L Chloride Level 108 MMOL/L (98-107) H Carbon Dioxide Level 22 MMOL/L (21-32) Anion Gap 9 mmol/L (5-15) Blood Urea Nitrogen 16 mg/dL (7-18) Creatinine 0.7 MG/DL (0.55-1.30) Estimat Glomerular Filtration Rate mL/min (>60) Glucose Level 132 MG/DL (74-106) H Calcium Level 8.3 MG/DL (8.5-10.1) L Magnesium Level 2.1 MG/DL (1.8-2.4) Microbiology Date/Time Source Procedure Growth Status 01/15/17 23:45 Blood Blood Culture - Preliminary NO GROWTH AFTER 48 HOURS Resulted 01/15/17 23:40 Blood Blood Culture - Preliminary NO GROWTH AFTER 48 HOURS Resulted Intake and Output 01/18/17 01/19/17 19:00 07:00 Intake Total 100 ml Balance 100 ml IV Total 100 ml Objective General Appearance: WD/WN, no apparent distress, alert EENT: PERRL/EOMI, normal ENT inspection Neck: non-tender, normal alignment, supple, normal inspection Cardiovascular: normal peripheral pulses, normal rate, regular rhythm, no gallop/murmur, no JVD Respiratory/Chest: chest wall non-tender, lungs clear, normal breath sounds, no respiratory distress, no accessory muscle use Abdomen: normal bowel sounds, non tender, soft, no organomegaly, no mass, abnormal bowel sounds Extremities: normal range of motion 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 See neurology note. 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 Cont keppra (4) Fever Assessment & Plan: Await urine and blood cultures. CXR=retrocardiac opacity. Start empiric ceftriaxone and vanco. (5) Pneumonia Assessment & Plan: Retrocardiac opacity; continue vanco and ceftriaxone. Await culture results. (6) Dysphagia Assessment & Plan: Video swallow=aspiration. Await PEG placement 01/19/17. Status: not improved Assessment/Plan Discharge planning: halfway fac vs acute rehab SAGE ORTEGA Jan 18, 2017 14:40
--- NOTE | 2017-01-18 14:46 | Pulmonology Progress Note ---
Assessment/Plan Problems: (1) At high risk for aspiration (2) New onset seizure (3) CVA (cerebral vascular accident) (4) Limited mobility (5) Dementia Assessment/Plan mental status better swallow study noted increase Keppra doing better dc planning in process Subjective ROS Limited/Unobtainable: No Constitutional: Reports: no symptoms HEENT: Repors: no symptoms Respiratory: Reports: no symptoms Cardiovascular: Reports: no symptoms Allergies: Coded Allergies: NO KNOWN ALLERGIES (Verified Allergy, Unknown, 01/13/17) Objective Last 24 Hour Vital Signs Date Time Temp Pulse Resp B/P (MAP) Pulse Ox O2 Delivery O2 Flow Rate FiO2 01/18/17 11:54 99.8 81 19 131/81 94 01/18/17 08:15 99.1 76 19 137/71 93 01/18/17 04:00 98.0 67 18 111/60 98 01/18/17 00:00 98.3 79 19 94/56 91 01/17/17 20:00 Room Air 21 01/17/17 20:00 98.2 66 20 108/61 92 01/17/17 20:00 96 Room Air 21 01/17/17 16:00 98.3 86 18 114/75 96 Room Air Intake and Output 01/18/17 01/19/17 19:00 07:00 Intake Total 100 ml Balance 100 ml IV Total 100 ml Objective Lines, tubes and drains: peripheral HEENT: normocephalic, atraumatic Neck: non-tender, normal alignment Respiratory/Chest: chest wall non-tender, lungs clear Cardiovascular/Chest: normal peripheral pulses, regular rhythm, no gallop/ murmur Abdomen: normal bowel sounds, non tender Genitourinary/Rectal: normal genital exam Extremities: normal range of motion, non-tender Microbiology Date/Time Source Procedure Growth Status 01/15/17 23:45 Blood Blood Culture - Preliminary NO GROWTH AFTER 48 HOURS Resulted 01/15/17 23:40 Blood Blood Culture - Preliminary NO GROWTH AFTER 48 HOURS Resulted Laboratory Tests 01/18/17 07:10: White Blood Count 5.1, Red Blood Count 3.26L, Hemoglobin 10.5L, Hematocrit 31.5L , Mean Corpuscular Volume 97, Mean Corpuscular Hemoglobin 32.1H, Mean Corpuscular Hemoglobin Concent 33.2, Red Cell Distribution Width 12.1, Platelet Count 264, Mean Platelet Volume 6.3L, Neutrophils (%) (Auto) 61.3, Lymphocytes ( %) (Auto) 27.0, Monocytes (%) (Auto) 7.2, Eosinophils (%) (Auto) 3.7H, Basophils (%) (Auto) 0.7, Sodium Level 139, Potassium Level 3.1L, Chloride Level 108H, Carbon Dioxide Level 22, Anion Gap 9, Blood Urea Nitrogen 16, Creatinine 0.7, Estimat Glomerular Filtration Rate , Glucose Level 132H, Calcium Level 8.3L, Magnesium Level 2.1 Current Medications Medications (Trade) Dose Ordered Sig/Jere Route PRN Reason Start Time Stop Time Status Last Admin Dose Admin Acetaminophen (Tylenol) 650 mg Q6H PRN ORAL Mild Pain/Temp > 100.5 01/15/17 23:30 02/14/17 23:29 Acetaminophen/ Hydrocodone Bitart ([place] 5/325) 1 tab Q4H PRN ORAL Moderate Pain (Pain Scale 4-6) 01/14/17 21:00 01/20/17 20:59 01/14/17 18:22 Ceftriaxone Sodium 1 gm/ Dextrose 55 ml @ 110 mls/hr Q24H IVPB 01/16/17 00:00 01/23/17 00:00 01/17/17 23:51 Dextrose/ Electrolytes 1,000 ml @ 75 mls/hr [id number] IV 01/18/17 11:00 02/17/17 10:59 01/18/17 11:35 Heparin Sodium (Porcine) (Heparin 5000 units/ml) 5,000 units EVERY 12 HOURS SUBQ 01/14/17 21:00 02/12/17 12:59 01/18/17 09:22 Levetiracetam 100 ml @ 400 mls/hr Q12HR IVPB 01/14/17 21:00 02/12/17 20:59 01/18/17 09:21 Lorazepam (Ativan 2mg/ml 1ml) 1 mg Q4H PRN IV Agitation 01/14/17 19:45 01/21/17 19:44 01/16/17 14:47 Lorazepam (Ativan 2mg/ml 1ml) 2 mg Q1HR PRN IV For Seizures 01/14/17 18:00 01/20/17 05:14 01/15/17 11:35 Menthol/Methyl Salicylate (Bengay) 1 applic FOUR TIMES A DAY PRN TOPIC pain 01/14/17 18:00 02/12/17 13:59 Risperidone (RisperDAL) 2 mg BEDTIME ORAL 01/16/17 21:00 02/15/17 20:59 01/17/17 22:06 SAIDA MAYER Jan 18, 2017 14:46
[2017-01-18 15:58] VITALS: BP 114/65
[2017-01-18 20:35] VITALS: BP 146/63
--- NOTE | 2017-01-18 23:12 | General Progress Note ---
Assessment/Plan Status: stable Assessment/Plan delirium agitation -cont current meds Subjective Allergies: Coded Allergies: NO KNOWN ALLERGIES (Verified Allergy, Unknown, 01/13/17) Subjective the pt is still confused and pw waxing and waning of consciousness. the pt is less agitated Objective Last 24 Hour Vital Signs Date Time Temp Pulse Resp B/P (MAP) Pulse Ox O2 Delivery O2 Flow Rate FiO2 01/18/17 22:52 Room Air 01/18/17 22:51 96 Room Air 01/18/17 20:35 97.7 63 19 146/63 96 01/18/17 16:00 Room Air 01/18/17 15:58 98.6 81 19 114/65 97 01/18/17 15:23 Nasal Cannula 3.0 32 01/18/17 15:22 98 Nasal Cannula 3.0 32 01/18/17 11:54 99.8 81 19 131/81 94 01/18/17 11:54 Room Air 01/18/17 08:15 Room Air 01/18/17 08:15 99.1 76 19 137/71 93 01/18/17 04:00 98.0 67 18 111/60 98 01/18/17 00:00 98.3 79 19 94/56 91 Intake and Output 01/18/17 01/19/17 19:00 07:00 Intake Total 550 ml Output Total 700 ml Balance -150 ml IV Total 550 ml Output Urine Total 700 ml # Voids 1 Laboratory Tests 01/18/17 07:10: White Blood Count 5.1, Red Blood Count 3.26L, Hemoglobin 10.5L, Hematocrit 31.5L , Mean Corpuscular Volume 97, Mean Corpuscular Hemoglobin 32.1H, Mean Corpuscular Hemoglobin Concent 33.2, Red Cell Distribution Width 12.1, Platelet Count 264, Mean Platelet Volume 6.3L, Neutrophils (%) (Auto) 61.3, Lymphocytes ( %) (Auto) 27.0, Monocytes (%) (Auto) 7.2, Eosinophils (%) (Auto) 3.7H, Basophils (%) (Auto) 0.7, Sodium Level 139, Potassium Level 3.1L, Chloride Level 108H, Carbon Dioxide Level 22, Anion Gap 9, Blood Urea Nitrogen 16, Creatinine 0.7, Estimat Glomerular Filtration Rate , Glucose Level 132H, Calcium Level 8.3L, Magnesium Level 2.1 Height (Feet): 5 Height (Inches): 5.00 Weight (Pounds): 141 General Appearance: no apparent distress, lethargic, confused Arvin Manrique M.D. Jan 18, 2017 23:11
[2017-01-18] MEDS: LORazepam Inj 2mg/ml 1ml IV PRN (23:51)
[2017-01-19] VITALS (11 sets, daily range): BP systolic 108–138; BP diastolic 52–89
[2017-01-19] MEDS: D5 1/2NS w/KCl 20mEq 1,000 ML IV SCH ×2 (00:39→12:40)
[2017-01-19] MEDS: cefTRIAXone 1 GM in D5W 55 ML IVPB SCH ×2 (00:40→23:59)
[2017-01-19 05:42] LABS: BASOPHILS % (AUTO) 0.5 % (0.0-2.0); EOSINOPHILS % (AUTO) 4.5 % (0.0-3.0); LYMPHOCYTES % (AUTO) 34.2 % (20.0-45.0); MEAN CORPUSCULAR HEMOGLOBIN 31.7 PG (27.0-31.0); MEAN CORPUSCULAR VOLUME 96 FL (80-99); MEAN PLATELET VOLUME 6.2 FL (6.5-10.1); NEUTROPHILS % (AUTO) 52.9 % (45.0-75.0); PLATELET COUNT 274 K/UL (150-450); RED BLOOD COUNT 3.51 M/UL (4.70-6.10); RED CELL DISTRIBUTION WIDTH 11.9 % (11.6-14.8); WHITE BLOOD COUNT 3.9 K/UL (4.8-10.8)
[2017-01-19 05:54] LABS: PROTHROMBIN TIME 10.7 SEC (9.30-11.50)
[2017-01-19 06:13] LABS: ANION GAP 9 mmol/L (5-15); CALCIUM 8.3 MG/DL (8.5-10.1); CARBON DIOXIDE 24 MMOL/L (21-32); CHLORIDE 107 MMOL/L (98-107); CREATININE 0.6 MG/DL (0.55-1.30); POTASSIUM 3.1 MMOL/L (3.5-5.1); SODIUM 140 MMOL/L (136-145)
--- NOTE | 2017-01-19 07:33 | Pulmonology Progress Note ---
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 dementia Dysphagia aspiration risk hypothyroidism DJD hypokalemia PLAN OF CARE MS floor MRI brain revealed acute CVA neuro follows ASA, statin, lipid panel CT head was negative for acute IC pathology EEG abnormal with high risk of seizure transformation, seizure precautions, no evidence for another episode of seizure Neuro follows Started on Keppra and dose increased ECHO with pEF 55% and RVSP of 28 Carotid Duplex with mild plaque 40-50% R bulb Venous Duplex BLE negative PT/OT/ST VSSE with evidence of aspiration risk and dysphagia PEG today K replaced, check K and Mg in am Dc plan to SNF vs ARU case discussed and evaluated by supervising physician Subjective Allergies: Coded Allergies: NO KNOWN ALLERGIES (Verified Allergy, Unknown, 01/13/17) Subjective awaiting for PEG later today Objective Last 24 Hour Vital Signs Date Time Temp Pulse Resp B/P (MAP) Pulse Ox O2 Delivery O2 Flow Rate FiO2 01/19/17 04:00 Room Air 01/19/17 04:00 98.0 66 18 130/72 95 01/19/17 00:44 97.6 66 18 136/60 96 01/19/17 00:00 Room Air 01/18/17 22:52 Room Air 01/18/17 22:51 96 Room Air 01/18/17 20:35 97.7 63 19 146/63 96 01/18/17 20:00 Room Air 01/18/17 16:00 Room Air 01/18/17 15:58 98.6 81 19 114/65 97 01/18/17 15:23 Nasal Cannula 3.0 32 01/18/17 15:22 98 Nasal Cannula 3.0 32 01/18/17 11:54 99.8 81 19 131/81 94 01/18/17 11:54 Room Air 01/18/17 08:15 Room Air 01/18/17 08:15 99.1 76 19 137/71 93 General Appearance: no acute distress, other - bedridden HEENT: normocephalic, atraumatic Respiratory/Chest: lungs clear, no accessory muscle use Cardiovascular: normal rate, regular rhythm Abdomen: soft, non tender, non distended Neurologic/Psychiatric: abnormal gait, alert Musculoskeletal: atrophy - BLE Laboratory Tests 01/19/17 04:35: White Blood Count 3.9L, Red Blood Count 3.51L, Hemoglobin 11.1L, Hematocrit 33.7L, Mean Corpuscular Volume 96, Mean Corpuscular Hemoglobin 31.7H, Mean Corpuscular Hemoglobin Concent 33.0, Red Cell Distribution Width 11.9, Platelet Count 274, Mean Platelet Volume 6.2L, Neutrophils (%) (Auto) 52.9, Lymphocytes ( %) (Auto) 34.2, Monocytes (%) (Auto) 8.0, Eosinophils (%) (Auto) 4.5H, Basophils (%) (Auto) 0.5, Prothrombin Time 10.7, Prothromb Time International Ratio 1.0, Activated Partial Thromboplast Time 38H, Sodium Level 140, Potassium Level 3.1L, Chloride Level 107, Carbon Dioxide Level 24, Anion Gap 9, Blood Urea Nitrogen 10, Creatinine 0.6, Estimat Glomerular Filtration Rate , Glucose Level 110H, Calcium Level 8.3L Current Medications Medications (Trade) Dose Ordered Sig/Jere Route PRN Reason Start Time Stop Time Status Last Admin Dose Admin Acetaminophen (Tylenol) 650 mg Q6H PRN ORAL Mild Pain/Temp > 100.5 01/15/17 23:30 02/14/17 23:29 Acetaminophen/ Hydrocodone Bitart ([place] 5/325) 1 tab Q4H PRN ORAL Moderate Pain (Pain Scale 4-6) 01/14/17 21:00 01/20/17 20:59 01/14/17 18:22 Ceftriaxone Sodium 1 gm/ Dextrose 55 ml @ 110 mls/hr Q24H IVPB 01/16/17 00:00 01/23/17 00:00 01/19/17 00:40 Dextrose/ Electrolytes 1,000 ml @ 75 mls/hr [id number] IV 01/18/17 11:00 02/17/17 10:59 01/19/17 00:39 Heparin Sodium (Porcine) (Heparin 5000 units/ml) 5,000 units EVERY 12 HOURS SUBQ 01/14/17 21:00 02/12/17 12:59 01/18/17 09:22 Levetiracetam 100 ml @ 400 mls/hr Q12HR IVPB 01/14/17 21:00 02/12/17 20:59 01/18/17 22:28 Lorazepam (Ativan 2mg/ml 1ml) 1 mg Q4H PRN IV Agitation 01/14/17 19:45 01/21/17 19:44 01/18/17 23:51 Lorazepam (Ativan 2mg/ml 1ml) 2 mg Q1HR PRN IV For Seizures 01/14/17 18:00 01/20/17 05:14 01/15/17 11:35 Menthol/Methyl Salicylate ([place]engay) 1 applic FOUR TIMES A DAY PRN TOPIC pain 01/14/17 18:00 02/12/17 13:59 Risperidone (RisperDAL) 2 mg BEDTIME ORAL 01/16/17 21:00 02/15/17 20:59 01/17/17 22:06 Sinan ([facility])Hue NP Jan 19, 2017 07:33
[2017-01-19] MEDS: levETIRAcetam 500mg/NS100ml 100 ML IVPB SCH ×2 (08:24→21:13)
[2017-01-19] MEDS: Heparin 5000 units/ml inj SUBQ SCH ×2 (08:28→21:15)
[2017-01-19] MEDS ORDERED: Propofol 200mg/20ml IV ONE (09:30)
[2017-01-19] MEDS ORDERED: Lidocaine 1% MPF 10mg/ml 5ml ONE (09:30)
[2017-01-19] MEDS ORDERED: cefOXitin 1gm Inj ONE (09:31)
--- NOTE | 2017-01-19 09:34 | Pre-Procedure Note/Attestation ---
Pre-Procedure Note/Attestation Complete Prior to Procedure Planned Procedure: not applicable Procedure Narrative: esophagogastroduodenoscopy peg Indications for Procedure Pre-Operative Diagnosis: FTT, dysphagia Attestation I attest that I discussed the nature of the procedure; its benefits; risks and complications; and alternatives (and the risks and benefits of such alternatives ), prior to the procedure, with the patient (or the patient's legal liability claims representative). I attest that, if there was a reasonable possibility of needing a blood transfusion, the patient (or the patient's legal liability claims representative) was given the [facility] standardized written summary, pursuant to the Cody Viola Blood Safety Act ([place] Health and Safety Code # 1645, as amended). I attest that I re-evaluated the patient just prior to the surgery and that there has been no change in the patient's H&P, except as documented below: MAURICIO DENTON Jan 19, 2017 09:34
--- NOTE | 2017-01-19 09:37 | General Progress Note ---
Assessment/Plan Problem List: (1) Dementia ICD Codes: F03.90 - Unspecified dementia without behavioral disturbance SNOMED: 40276653 (2) CVA (cerebral vascular accident) ICD Codes: I63.9 - Cerebral infarction, unspecified SNOMED: 823430689 (3) Dysphagia ICD Codes: R13.10 - Dysphagia, unspecified SNOMED: 28403880, [id number] Assessment/Plan plan PEG today Subjective ROS Limited/Unobtainable: No Allergies: Coded Allergies: NO KNOWN ALLERGIES (Verified Allergy, Unknown, 01/13/17) Objective Last 24 Hour Vital Signs Date Time Temp Pulse Resp B/P (MAP) Pulse Ox O2 Delivery O2 Flow Rate FiO2 01/19/17 04:00 Room Air 01/19/17 04:00 98.0 66 18 130/72 95 01/19/17 00:44 97.6 66 18 136/60 96 01/19/17 00:00 Room Air 01/18/17 22:52 Room Air 01/18/17 22:51 96 Room Air 01/18/17 20:35 97.7 63 19 146/63 96 01/18/17 20:00 Room Air 01/18/17 16:00 Room Air 01/18/17 15:58 98.6 81 19 114/65 97 01/18/17 15:23 Nasal Cannula 3.0 32 01/18/17 15:22 98 Nasal Cannula 3.0 32 01/18/17 11:54 99.8 81 19 131/81 94 01/18/17 11:54 Room Air Laboratory Tests 01/19/17 04:35: White Blood Count 3.9L, Red Blood Count 3.51L, Hemoglobin 11.1L, Hematocrit 33.7L, Mean Corpuscular Volume 96, Mean Corpuscular Hemoglobin 31.7H, Mean Corpuscular Hemoglobin Concent 33.0, Red Cell Distribution Width 11.9, Platelet Count 274, Mean Platelet Volume 6.2L, Neutrophils (%) (Auto) 52.9, Lymphocytes ( %) (Auto) 34.2, Monocytes (%) (Auto) 8.0, Eosinophils (%) (Auto) 4.5H, Basophils (%) (Auto) 0.5, Prothrombin Time 10.7, Prothromb Time International Ratio 1.0, Activated Partial Thromboplast Time 38H, Sodium Level 140, Potassium Level 3.1L, Chloride Level 107, Carbon Dioxide Level 24, Anion Gap 9, Blood Urea Nitrogen 10, Creatinine 0.6, Estimat Glomerular Filtration Rate , Glucose Level 110H, Calcium Level 8.3L Height (Feet): 5 Height (Inches): 5.00 Weight (Pounds): 141 General Appearance: no apparent distress EENT: normal ENT inspection Neck: supple Cardiovascular: normal rate Respiratory/Chest: decreased breath sounds Abdomen: normal bowel sounds, non tender, soft Extremities: non-tender MAURICIO DENTON Jan 19, 2017 09:37
--- NOTE | 2017-01-19 09:54 | Endoscopy Procedure Note ---
Endoscopy Procedure Note Indication for Procedure: dysphagia Procedures Performed: EGD, PEG Operative Findings/Diagnosis: s/p peg Specimen: yes Pt Tolerated Procedure Well: Yes Estimated Blood Loss: none Anesthesiologist: angela Anesthesia: MAC Implant(s) used?: No 50 yrs or older w/o bx or poly: Not Applicable 10yrs. F/U not recommended: Not Applicable MAURICIO DENTON Jan 19, 2017 09:54
--- NOTE | 2017-01-19 10:14 | Anethesia Preoperative Eval ---
Anesthesia Pre-op PMH/ROS General Date of Evaluation: Jan 19, 2017 Time of Evaluation: 09:39 Anesthesiologist: elkin ASA Score: ASA 3 Mallampati Score Class I : Soft palate, uvula, fauces, pillars visible Class II: Soft palate, uvula, fauces visible Class III: Soft palate, base of uvula visible Class IV: Only hard plate visible Mallampati Classification: Class II Surgeon: little Diagnosis: dysphagia, gastritis, ftt Surgical Procedure: egd/peg Anesthesia History: none Social History: smoking - nonsmoker Family History: no anesthesia problems Allergies: Coded Allergies: NO KNOWN ALLERGIES (Verified Allergy, Unknown, 01/13/17) Medications: see eMAR Past Medical History Neurologic/Psychiatric: Reports: CVA, other - left sided bjorn paresis Musculoskeletal/Integumentary: Reports: OA Anesthesia Pre-op Phys. Exam Physician Exam Last Vital Signs Date Time Temp Pulse Resp B/P (MAP) Pulse Ox O2 Delivery O2 Flow Rate FiO2 01/19/17 10:07 61 19 131/68 100 Nasal Cannula 3.0 01/19/17 10:02 97.7 01/18/17 15:23 32 Constitutional: NAD Neurologic: other Cardiovascular: RRR Respiratory: CTA Gastrointestinal: S/NT/ND Airway Exam Mallampati Score: Class II MO: full Neck: decreased rom to lateral rotation TMD: 2fb ROM: limited Teeth: missing, broken Anesthesia Pre-op A/P Labs Hematology Test 01/19/17 04:35 White Blood Count 3.9 K/UL (4.8-10.8) L Red Blood Count 3.51 M/UL (4.70-6.10) L Hemoglobin 11.1 G/DL (14.2-18.0) L Hematocrit 33.7 % (42.0-52.0) L Mean Corpuscular Volume 96 FL (80-99) Mean Corpuscular Hemoglobin 31.7 PG (27.0-31.0) H Mean Corpuscular Hemoglobin Concent 33.0 G/DL (32.0-36.0) Red Cell Distribution Width 11.9 % (11.6-14.8) Platelet Count 274 K/UL (150-450) Mean Platelet Volume 6.2 FL (6.5-10.1) L Neutrophils (%) (Auto) 52.9 % (45.0-75.0) Lymphocytes (%) (Auto) 34.2 % (20.0-45.0) Monocytes (%) (Auto) 8.0 % (1.0-10.0) Eosinophils (%) (Auto) 4.5 % (0.0-3.0) H Basophils (%) (Auto) 0.5 % (0.0-2.0) Coagulation Test 01/19/17 04:35 Prothrombin Time 10.7 SEC (9.30-11.50) Prothromb Time International Ratio 1.0 (0.9-1.1) Activated Partial Thromboplast Time 38 SEC (23-33) H Chemistry Test 01/19/17 04:35 Sodium Level 140 MMOL/L (136-145) Potassium Level 3.1 MMOL/L (3.5-5.1) L Chloride Level 107 MMOL/L (98-107) Carbon Dioxide Level 24 MMOL/L (21-32) Anion Gap 9 mmol/L (5-15) Blood Urea Nitrogen 10 mg/dL (7-18) Creatinine 0.6 MG/DL (0.55-1.30) Estimat Glomerular Filtration Rate mL/min (>60) Glucose Level 110 MG/DL (74-106) H Calcium Level 8.3 MG/DL (8.5-10.1) L Risk Assessment & Plan Assessment: asa3 Plan: mac Status Change Before Surgery: No Pre-Antibiotics Drug: cefazolin Given Within 1 Hr of Incision: Yes Time Given: 09:40 FAITH MUKHERJEE Jan 19, 2017 10:14
--- NOTE | 2017-01-19 10:14 | Immediate Post-Op Evaluation ---
Immediate Post-Op Evalulation Immediate Post-Op Evalulation Procedure: egd/peg Date of Evaluation: Jan 19, 2017 Time of Evaluation: 10:14 IV Fluids: 350ml 0.9ns Blood Products: none Estimated Blood Loss: negligible Blood Pressure Systolic: 114 Blood Pressure Diastolic: 64 Pulse Rate: 58 Respiratory Rate: 18 O2 Sat by Pulse Oximetry: 99 Temperature (Fahrenheit): 97.7 Pain Score (1-10): 0 Nausea: No Vomiting: No Complications none Patient Status: awake, reacts, patent Hydration Status: adequate Drug: cefazolin Given Within 1 Hr of Incision: Yes Time Given: 09:40 FAITH MUKHERJEE Jan 19, 2017 10:14
[2017-01-19] MEDS ORDERED: DiphenhydrAMINE 50mg/ml Inj IVP PRN (10:15)
[2017-01-19] MEDS ORDERED: fentaNYL 100 mcg/2 mL IV PRN (10:15)
[2017-01-19] MEDS ORDERED: Midazolam 2mg/2ml Inj IVP PRN (10:15)
[2017-01-19] MEDS ORDERED: Atropine Inj 1mg/10ml Syr IV PRN (10:15)
[2017-01-19] MEDS ORDERED: NS 500ML IV ONE (10:35)
[2017-01-19] MEDS ORDERED: cefOXitin 1gm Inj IVP ONE (10:40)
[2017-01-19] MEDS ORDERED: KCl 10% 20 mEq/15ml liquid NG ONE (13:00)
[2017-01-19] MEDS ORDERED: Norco 5mg/325mg tab ORAL PRN (13:00)
[2017-01-19] MEDS ORDERED: LORazepam Inj 2mg/ml 1ml IV PRN (13:00)
--- NOTE | 2017-01-19 13:13 | 48 Hour Post Anesthesia Eval ---
Post Anesthesia Evaluation Procedure: egd/peg Date of Evaluation: Jan 19, 2017 Time of Evaluation: 10:16 Blood Pressure Systolic: 111 0: 66 Pulse Rate: 59 Respiratory Rate: 18 Temperature (Fahrenheit): 97.7 O2 Sat by Pulse Oximetry: 99 Airway: patent Nausea: No Vomiting: No Pain Intensity: 0 Hydration Status: adequate Cardiopulmonary Status: stable Mental Status/LOC: patient returned to baseline Post-Anesthesia Complications: none Follow-up care needed: N/A FAITH MUKHERJEE Jan 19, 2017 13:13
[2017-01-19] MEDS: LORazepam Inj 2mg/ml 1ml IV PRN (13:26)
--- NOTE | 2017-01-19 15:12 | General Progress Note ---
Assessment/Plan Status: stable Assessment/Plan delirium agitation -cont current meds Subjective Neurologic/Psychiatric: Reports: anxiety, emotional problems Allergies: Coded Allergies: NO KNOWN ALLERGIES (Verified Allergy, Unknown, 01/13/17) Subjective the pt is still confused and pw waxing and waning of consciousness. the pt is less agitated Objective Last 24 Hour Vital Signs Date Time Temp Pulse Resp B/P (MAP) Pulse Ox O2 Delivery O2 Flow Rate FiO2 01/19/17 13:13 59 18 99 01/19/17 13:11 58 18 99 01/19/17 12:00 97.6 68 18 108/72 99 Room Air 01/19/17 10:30 98.0 62 16 130/69 100 Nasal Cannula 3.0 01/19/17 10:20 63 16 126/65 100 Nasal Cannula 3.0 01/19/17 10:12 57 13 124/65 100 Nasal Cannula 3.0 01/19/17 10:07 61 19 131/68 100 Nasal Cannula 3.0 01/19/17 10:02 97.7 61 19 114/64 100 Nasal Cannula 3.0 01/19/17 08:00 99 Nasal Cannula 3.0 32 01/19/17 08:00 97.8 64 20 125/89 99 Room Air 01/19/17 08:00 Nasal Cannula 3.0 32 01/19/17 04:00 Room Air 01/19/17 04:00 98.0 66 18 130/72 95 01/19/17 00:44 97.6 66 18 136/60 96 01/19/17 00:00 Room Air 01/18/17 22:52 Room Air 01/18/17 22:51 96 Room Air 01/18/17 20:35 97.7 63 19 146/63 96 01/18/17 20:00 Room Air 01/18/17 16:00 Room Air 01/18/17 15:58 98.6 81 19 114/65 97 01/18/17 15:23 Nasal Cannula 3.0 32 01/18/17 15:22 98 Nasal Cannula 3.0 32 Intake and Output 01/19/17 01/20/17 19:00 07:00 Intake Total 950 ml Output Total 100 ml Balance 850 ml IV Total 950 ml Output Urine Total 100 ml Laboratory Tests 01/19/17 04:35: White Blood Count 3.9L, Red Blood Count 3.51L, Hemoglobin 11.1L, Hematocrit 33.7L, Mean Corpuscular Volume 96, Mean Corpuscular Hemoglobin 31.7H, Mean Corpuscular Hemoglobin Concent 33.0, Red Cell Distribution Width 11.9, Platelet Count 274, Mean Platelet Volume 6.2L, Neutrophils (%) (Auto) 52.9, Lymphocytes ( %) (Auto) 34.2, Monocytes (%) (Auto) 8.0, Eosinophils (%) (Auto) 4.5H, Basophils (%) (Auto) 0.5, Prothrombin Time 10.7, Prothromb Time International Ratio 1.0, Activated Partial Thromboplast Time 38H, Sodium Level 140, Potassium Level 3.1L, Chloride Level 107, Carbon Dioxide Level 24, Anion Gap 9, Blood Urea Nitrogen 10, Creatinine 0.6, Estimat Glomerular Filtration Rate , Glucose Level 110H, Calcium Level 8.3L Height (Feet): 5 Height (Inches): 5.00 Weight (Pounds): 141 General Appearance: no apparent distress, confused, thin Neurologic: responsive, disoriented, depressed affect Arvin Manrique M.D. Jan 19, 2017 15:12
--- NOTE | 2017-01-19 16:22 | Internal Med Progress Note ---
Subjective Physician Name Hans Weston Attending Physician Hans Weston MD Current Medications Medications (Trade) Dose Ordered Sig/Jere Route PRN Reason Start Time Stop Time Status Last Admin Dose Admin Acetaminophen (Tylenol) 650 mg Q6H PRN ORAL Mild Pain/Temp > 100.5 01/15/17 23:30 02/14/17 23:29 Acetaminophen/ Hydrocodone Bitart ([place] 5/325) 1 tab Q4H PRN ORAL Moderate Pain (Pain Scale 4-6) 01/19/17 13:00 01/25/17 12:59 Al Hydroxide/Mg Hydroxide (Mylanta) 15 ml Q1H PRN ORAL gi upset 01/19/17 10:15 01/19/17 17:00 Atropine Sulfate (Atropine) 0.5 mg Q5M PRN IV bpm less than 45 01/19/17 10:15 01/19/17 17:00 Ceftriaxone Sodium 1 gm/ Dextrose 55 ml @ 110 mls/hr Q24H IVPB 01/16/17 00:00 01/23/17 00:00 01/19/17 00:40 Dextrose/ Electrolytes 1,000 ml @ 75 mls/hr [id number] IV 01/18/17 11:00 02/17/17 10:59 01/19/17 12:40 Diphenhydramine HCl (Benadryl) 25 mg Q15M PRN IVP Itching 01/19/17 10:15 01/19/17 17:00 Fentanyl Citrate (Sublimaze 100 mcg/2 mL) 25 mcg Q10M PRN IV Moderate Pain (Pain Scale 4-6) 01/19/17 10:15 01/19/17 17:00 Heparin Sodium (Porcine) (Heparin 5000 units/ml) 5,000 units EVERY 12 HOURS SUBQ 01/14/17 21:00 02/12/17 12:59 01/19/17 08:28 Hydralazine HCl (Apresoline) 5 mg Q30M PRN IV SBP>160 OR___/DBP>90 OR___ 01/19/17 10:15 01/19/17 17:00 Levetiracetam 100 ml @ 400 mls/hr Q12HR IVPB 01/14/17 21:00 02/12/17 20:59 01/19/17 08:24 Lorazepam (Ativan 2mg/ml 1ml) 1 mg Q4H PRN IV Agitation 01/14/17 19:45 01/21/17 19:44 01/19/17 13:26 Lorazepam (Ativan 2mg/ml 1ml) 2 mg Q1H PRN IV For Seizures 01/19/17 13:00 01/26/17 12:59 Menthol/Methyl Salicylate (Bengay) 1 applic FOUR TIMES A DAY PRN TOPIC pain 01/14/17 18:00 02/12/17 13:59 Midazolam HCl (Versed 2mg/2ml vial) 1 mg Q15M PRN IVP For Anxiety 01/19/17 10:15 01/19/17 17:00 Ondansetron HCl (Zofran) 4 mg Q1H PRN IVP Nausea & Vomiting 01/19/17 10:15 01/19/17 17:00 Risperidone (RisperDAL) 2 mg BEDTIME ORAL 01/16/17 21:00 02/15/17 20:59 01/17/17 22:06 Allergies: Coded Allergies: NO KNOWN ALLERGIES (Verified Allergy, Unknown, 01/13/17) Subjective not verbal, unable to F/u commands, Grad daughters at bedside Objective Last Vital Signs Date Time Temp Pulse Resp B/P (MAP) Pulse Ox O2 Delivery O2 Flow Rate FiO2 01/19/17 13:13 59 18 99 01/19/17 12:00 97.6 108/72 Room Air 01/19/17 10:30 3.0 01/19/17 08:00 32 Laboratory Tests Test 01/19/17 04:35 White Blood Count 3.9 K/UL (4.8-10.8) L Red Blood Count 3.51 M/UL (4.70-6.10) L Hemoglobin 11.1 G/DL (14.2-18.0) L Hematocrit 33.7 % (42.0-52.0) L Mean Corpuscular Volume 96 FL (80-99) Mean Corpuscular Hemoglobin 31.7 PG (27.0-31.0) H Mean Corpuscular Hemoglobin Concent 33.0 G/DL (32.0-36.0) Red Cell Distribution Width 11.9 % (11.6-14.8) Platelet Count 274 K/UL (150-450) Mean Platelet Volume 6.2 FL (6.5-10.1) L Neutrophils (%) (Auto) 52.9 % (45.0-75.0) Lymphocytes (%) (Auto) 34.2 % (20.0-45.0) Monocytes (%) (Auto) 8.0 % (1.0-10.0) Eosinophils (%) (Auto) 4.5 % (0.0-3.0) H Basophils (%) (Auto) 0.5 % (0.0-2.0) Prothrombin Time 10.7 SEC (9.30-11.50) Prothromb Time International Ratio 1.0 (0.9-1.1) Activated Partial Thromboplast Time 38 SEC (23-33) H Sodium Level 140 MMOL/L (136-145) Potassium Level 3.1 MMOL/L (3.5-5.1) L Chloride Level 107 MMOL/L (98-107) Carbon Dioxide Level 24 MMOL/L (21-32) Anion Gap 9 mmol/L (5-15) Blood Urea Nitrogen 10 mg/dL (7-18) Creatinine 0.6 MG/DL (0.55-1.30) Estimat Glomerular Filtration Rate mL/min (>60) Glucose Level 110 MG/DL (74-106) H Calcium Level 8.3 MG/DL (8.5-10.1) L Intake and Output 01/19/17 01/20/17 19:00 07:00 Intake Total 1110 ml Output Total 100 ml Balance 1010 ml Free Water 100 ml IV Total 950 ml Tube Feeding 60 ml Output Urine Total 100 ml Objective General: No acute distress, not verbal, unable to F/U commands. HEENT: sclera anicteric, PERRL Neck: Supple, no JVD Lungs: fair inspiratory effort, decrease air on bases, no Wheeze. Heart: Regular rate and rhythm, normal S1/S2, no murmurs Abdomen: soft, nontender, nondistended. Normoactive bowel sounds. PEG site intact. Extremities: No Cyanosis , clubbing or edema. Neuro: move upper extremities Assessment/Plan Assessment/Plan (1) CVA (cerebral vascular accident) Assessment & Plan: Acute right posterior parietal; old right MCA.. See neurology note. 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 Cont keppra (4) Fever Assessment & Plan: Await urine and blood cultures. CXR=retrocardiac opacity. Start empiric ceftriaxone and vanco. (5) Aspiration Pneumonia Assessment & Plan: Retrocardiac opacity; continue vanco and ceftriaxone. (6) Dysphagia Assessment & Plan: Video swallow=aspiration. S/P PEG placement 01/19/17. Status: not improved Assessment/Plan Discharge planning to SNF in AM. Hans Weston MD Jan 19, 2017 16:22
--- NOTE | 2017-01-19 16:31 | Procedure Note ---
DATE OF PROCEDURE: 01/19/2017 PROCEDURE: Upper endoscopy with PEG placement and biopsy. ANESTHESIOLOGIST: Leesa Fernandez M.D. INSTRUMENT: Olympus adult flexible upper endoscope. INDICATION: Failure to thrive and dysphagia. REASON FOR PROCEDURE: The procedure, risks, benefits, and possible consequences, including hemorrhage, aspiration, perforation and infection, and alternative treatments, were explained to the patient/legal guardian by Dr. Matthew Mix and the patient/legal guardian understood and accepted these risks. PROCEDURE: After informed consent was obtained and the patient was adequately sedated, Olympus upper endoscope was advanced from mouth into the second portion of duodenum and retroflexion was performed in the stomach. The patient had diffuse gastritis. Random biopsy from antrum was obtained to rule out H. pylori infection. The patient has also evidence of small hiatal hernia. Under endoscopic guidance under sterile condition, a 20-Kazakh pull type of G-tube was successfully placed in epigastric area. The distance from the tip of the tube to the skin was about 2 cm in size. The patient tolerated the procedure well without any complication. SUMMARY FINDINGS: 1. Status post successful percutaneous endoscopic gastrostomy placement. 2. Gastritis, status biopsy. 3. The patient received dose of antibiotics prior to this procedure. RECOMMENDATIONS: 1. We will start tube feeding later today. 2. Abdominal binder. 3. Elevate head of the bed at all times. I want to thank, Dr. Hans Weston for this kind referral. Matthew Mix M.D. DR: Kathrine JOB#: [id number] CC: Hans Weston M.D.; Fax#: [phone]
[2017-01-20 00:15] VITALS: BP 110/50
[2017-01-20] MEDS: D5 1/2NS w/KCl 20mEq 1,000 ML IV SCH ×2 (02:02→14:44)
[2017-01-20 04:00] VITALS: BP 124/69
[2017-01-20 07:58] LABS: BASOPHILS % (AUTO) 0.6 % (0.0-2.0); LYMPHOCYTES % (AUTO) 47.8 % (20.0-45.0); MEAN CORPUSCULAR HEMOGLOBIN 32.4 PG (27.0-31.0); MEAN CORPUSCULAR HGB CONC 33.6 G/DL (32.0-36.0); MEAN CORPUSCULAR VOLUME 96 FL (80-99); MEAN PLATELET VOLUME 5.6 FL (6.5-10.1); NEUTROPHILS % (AUTO) 39.6 % (45.0-75.0); PLATELET COUNT 265 K/UL (150-450); RED BLOOD COUNT 3.36 M/UL (4.70-6.10); RED CELL DISTRIBUTION WIDTH 11.9 % (11.6-14.8); WHITE BLOOD COUNT 4.3 K/UL (4.8-10.8)
[2017-01-20 08:00] VITALS: BP 112/60
[2017-01-20 08:23] LABS: ANION GAP 7 mmol/L (5-15); CALCIUM 8.3 MG/DL (8.5-10.1); CARBON DIOXIDE 24 MMOL/L (21-32); CHLORIDE 107 MMOL/L (98-107); CREATININE 0.8 MG/DL (0.55-1.30); POTASSIUM 3.6 MMOL/L (3.5-5.1); SODIUM 138 MMOL/L (136-145)
[2017-01-20] MEDS: levETIRAcetam 500mg/NS100ml 100 ML IVPB SCH ×2 (08:50→20:46)
[2017-01-20] MEDS: Heparin 5000 units/ml inj SUBQ SCH ×2 (08:51→20:46)
--- NOTE | 2017-01-20 09:39 | Pulmonology Progress Note ---
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 dementia Dysphagia s/p EGD with PEG 01/19 aspiration risk hypothyroidism DJD hypokalemia PLAN OF CARE MS floor MRI brain revealed acute CVA neuro follows ASA, statin, lipid panel CT head was negative for acute IC pathology EEG abnormal with high risk of seizure transformation, seizure precautions, no evidence for another episode of seizure Neuro follows Started on Keppra and dose increased ECHO with pEF 55% and RVSP of 28 Carotid Duplex with mild plaque 40-50% R bulb Venous Duplex BLE negative PT/OT/ST VSSE with evidence of dysphagia s/p PEG strict aspiration precautions/p PEG tolerates TF, increase rate to goal replace Mg, K stable after replacement K replaced, check K and Mg in am Dc plan to SNF vs ARU today as per PMD case discussed and evaluated by supervising physician Subjective Allergies: Coded Allergies: NO KNOWN ALLERGIES (Verified Allergy, Unknown, 01/13/17) Subjective s/p PEG 01/19 tolerates TF Objective Last 24 Hour Vital Signs Date Time Temp Pulse Resp B/P (MAP) Pulse Ox O2 Delivery O2 Flow Rate FiO2 01/20/17 08:00 98.0 64 18 112/60 96 Room Air 01/20/17 04:00 98.4 75 19 124/69 97 01/20/17 00:15 98.2 65 18 110/50 94 01/19/17 20:21 98.5 69 18 113/52 94 Room Air 01/19/17 20:19 94 Room Air 01/19/17 20:19 Room Air 01/19/17 16:00 98.6 80 20 138/75 98 Room Air 01/19/17 13:13 59 18 99 01/19/17 13:11 58 18 99 01/19/17 12:00 97.6 68 18 108/72 99 Room Air 01/19/17 10:30 98.0 62 16 130/69 100 Nasal Cannula 3.0 01/19/17 10:20 63 16 126/65 100 Nasal Cannula 3.0 01/19/17 10:12 57 13 124/65 100 Nasal Cannula 3.0 01/19/17 10:07 61 19 131/68 100 Nasal Cannula 3.0 01/19/17 10:02 97.7 61 19 114/64 100 Nasal Cannula 3.0 Objective General Appearance: no acute distress, bedridden HEENT: normocephalic, atraumatic Respiratory/Chest: lungs clear, no accessory muscle use Cardiovascular: normal rate, regular rhythm Abdomen: soft, non tender, non distended, G tube with TF, Neurologic/Psychiatric: abnormal gait, alert Musculoskeletal: atrophy - BLE Laboratory Tests 01/20/17 05:40: White Blood Count 4.3L, Red Blood Count 3.36L, Hemoglobin 10.9L, Hematocrit 32.4L, Mean Corpuscular Volume 96, Mean Corpuscular Hemoglobin 32.4H, Mean Corpuscular Hemoglobin Concent 33.6, Red Cell Distribution Width 11.9, Platelet Count 265, Mean Platelet Volume 5.6L, Neutrophils (%) (Auto) 39.6L, Lymphocytes (%) (Auto) 47.8H, Monocytes (%) (Auto) 8.0, Eosinophils (%) (Auto) 4.0H, Basophils (%) (Auto) 0.6, Sodium Level 138, Potassium Level 3.6, Chloride Level 107, Carbon Dioxide Level 24, Anion Gap 7, Blood Urea Nitrogen 10, Creatinine 0.8, Estimat Glomerular Filtration Rate , Glucose Level 103, Calcium Level 8.3L , Magnesium Level 1.7L Current Medications Medications (Trade) Dose Ordered Sig/Jere Route PRN Reason Start Time Stop Time Status Last Admin Dose Admin Acetaminophen (Tylenol) 650 mg Q6H PRN ORAL Mild Pain/Temp > 100.5 01/15/17 23:30 02/14/17 23:29 Acetaminophen/ Hydrocodone Bitart ([place] 5/325) 1 tab Q4H PRN ORAL Moderate Pain (Pain Scale 4-6) 01/19/17 13:00 01/25/17 12:59 Ceftriaxone Sodium 1 gm/ Dextrose 55 ml @ 110 mls/hr Q24H IVPB 01/16/17 00:00 01/23/17 00:00 01/19/17 23:59 Dextrose/ Electrolytes 1,000 ml @ 75 mls/hr [id number] IV 01/18/17 11:00 02/17/17 10:59 01/20/17 02:02 Heparin Sodium (Porcine) (Heparin 5000 units/ml) 5,000 units EVERY 12 HOURS SUBQ 01/14/17 21:00 02/12/17 12:59 01/20/17 08:51 Levetiracetam 100 ml @ 400 mls/hr Q12HR IVPB 01/14/17 21:00 02/12/17 20:59 01/20/17 08:50 Lorazepam (Ativan 2mg/ml 1ml) 1 mg Q4H PRN IV Agitation 01/14/17 19:45 01/21/17 19:44 01/19/17 13:26 Lorazepam (Ativan 2mg/ml 1ml) 2 mg Q1H PRN IV For Seizures 01/19/17 13:00 01/26/17 12:59 Menthol/Methyl Salicylate (Bengay) 1 applic FOUR TIMES A DAY PRN TOPIC pain 01/14/17 18:00 02/12/17 13:59 Risperidone (RisperDAL) 2 mg BEDTIME ORAL 01/16/17 21:00 02/15/17 20:59 01/19/17 21:13 Sin[facility] GarciaC[facility] HospitalHue Thomas NP Jan 20, 2017 09:39
[2017-01-20 12:32] VITALS: BP 112/64
--- NOTE | 2017-01-20 13:14 | Internal Med Progress Note ---
Subjective Date of Service: Jan 20, 2017 Physician Name Sage Ortega Attending Physician Hans Weston MD Current Medications Medications (Trade) Dose Ordered Sig/Jere Route PRN Reason Start Time Stop Time Status Last Admin Dose Admin Acetaminophen (Tylenol) 650 mg Q6H PRN ORAL Mild Pain/Temp > 100.5 01/15/17 23:30 02/14/17 23:29 Acetaminophen/ Hydrocodone Bitart ([place] 5/325) 1 tab Q4H PRN ORAL Moderate Pain (Pain Scale 4-6) 01/19/17 13:00 01/25/17 12:59 Ceftriaxone Sodium 1 gm/ Dextrose 55 ml @ 110 mls/hr Q24H IVPB 01/16/17 00:00 01/23/17 00:00 01/19/17 23:59 Dextrose/ Electrolytes 1,000 ml @ 75 mls/hr [id number] IV 01/18/17 11:00 02/17/17 10:59 01/20/17 02:02 Heparin Sodium (Porcine) (Heparin 5000 units/ml) 5,000 units EVERY 12 HOURS SUBQ 01/14/17 21:00 02/12/17 12:59 01/20/17 08:51 Levetiracetam 100 ml @ 400 mls/hr Q12HR IVPB 01/14/17 21:00 02/12/17 20:59 01/20/17 08:50 Lorazepam (Ativan 2mg/ml 1ml) 1 mg Q4H PRN IV Agitation 01/14/17 19:45 01/21/17 19:44 01/19/17 13:26 Lorazepam (Ativan 2mg/ml 1ml) 2 mg Q1H PRN IV For Seizures 01/19/17 13:00 01/26/17 12:59 Menthol/Methyl Salicylate (Bengay) 1 applic FOUR TIMES A DAY PRN TOPIC pain 01/14/17 18:00 02/12/17 13:59 Risperidone (RisperDAL) 2 mg BEDTIME ORAL 01/16/17 21:00 02/15/17 20:59 01/19/17 21:13 Allergies: Coded Allergies: NO KNOWN ALLERGIES (Verified Allergy, Unknown, 01/13/17) ROS Limited/Unobtainable: No Constitutional: Reports: no symptoms HEENT: Reports: no symptoms Cardiovascular: Reports: no symptoms Respiratory: Reports: no symptoms Gastrointestinal/Abdominal: Reports: no symptoms Genitourinary: Reports: no symptoms Neurologic/Psychiatric: Reports: no symptoms Subjective 86 YO M admitted with new onset seizure. Now acute cerebral vascular accident. Cover for Int Loco-Dr Weston. S/P PEG placement 01/19/17. Objective Last Vital Signs Date Time Temp Pulse Resp B/P (MAP) Pulse Ox O2 Delivery O2 Flow Rate FiO2 01/20/17 12:32 98.2 66 18 112/64 97 Room Air 01/19/17 10:30 3.0 01/19/17 08:00 32 Laboratory Tests Test 01/20/17 05:40 White Blood Count 4.3 K/UL (4.8-10.8) L Red Blood Count 3.36 M/UL (4.70-6.10) L Hemoglobin 10.9 G/DL (14.2-18.0) L Hematocrit 32.4 % (42.0-52.0) L Mean Corpuscular Volume 96 FL (80-99) Mean Corpuscular Hemoglobin 32.4 PG (27.0-31.0) H Mean Corpuscular Hemoglobin Concent 33.6 G/DL (32.0-36.0) Red Cell Distribution Width 11.9 % (11.6-14.8) Platelet Count 265 K/UL (150-450) Mean Platelet Volume 5.6 FL (6.5-10.1) L Neutrophils (%) (Auto) 39.6 % (45.0-75.0) L Lymphocytes (%) (Auto) 47.8 % (20.0-45.0) H Monocytes (%) (Auto) 8.0 % (1.0-10.0) Eosinophils (%) (Auto) 4.0 % (0.0-3.0) H Basophils (%) (Auto) 0.6 % (0.0-2.0) Sodium Level 138 MMOL/L (136-145) Potassium Level 3.6 MMOL/L (3.5-5.1) Chloride Level 107 MMOL/L (98-107) Carbon Dioxide Level 24 MMOL/L (21-32) Anion Gap 7 mmol/L (5-15) Blood Urea Nitrogen 10 mg/dL (7-18) Creatinine 0.8 MG/DL (0.55-1.30) Estimat Glomerular Filtration Rate mL/min (>60) Glucose Level 103 MG/DL (74-106) Calcium Level 8.3 MG/DL (8.5-10.1) L Magnesium Level 1.7 MG/DL (1.8-2.4) L Objective General Appearance: WD/WN, no apparent distress, alert EENT: PERRL/EOMI, normal ENT inspection Neck: non-tender, normal alignment, supple, normal inspection Cardiovascular: normal peripheral pulses, normal rate, regular rhythm, no gallop/murmur, no JVD Respiratory/Chest: chest wall non-tender, lungs clear, normal breath sounds, no respiratory distress, no accessory muscle use Abdomen: normal bowel sounds, non tender, soft, no organomegaly, no mass, abnormal bowel sounds Extremities: normal range of motion 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 See neurology note. 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 Cont keppra (4) Fever Assessment & Plan: Await urine and blood cultures. CXR=retrocardiac opacity. Start empiric ceftriaxone and vanco. (5) Pneumonia Assessment & Plan: Retrocardiac opacity; continue vanco and ceftriaxone. Await culture results. (6) Dysphagia Assessment & Plan: Video swallow=aspiration. Await PEG placement 01/19/17. Status: not improved Assessment/Plan Discharge planning: Family requests home with home health. SAGE ORTEGA Jan 20, 2017 13:14
[2017-01-20 16:00] VITALS: BP 122/59
[2017-01-20 20:00] VITALS: BP 131/64
--- NOTE | 2017-01-20 21:09 | General Progress Note ---
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 (5) Hypothyroidism ICD Codes: E03.9 - Hypothyroidism, unspecified SNOMED: 48268930 (6) At high risk for aspiration ICD Codes: Z91.89 - Other specified personal risk factors, not elsewhere classified SNOMED: 560718801 (7) Dementia ICD Codes: F03.90 - Unspecified dementia without behavioral disturbance SNOMED: 08314216 (8) CVA (cerebral vascular accident) ICD Codes: I63.9 - Cerebral infarction, unspecified SNOMED: 879375514 Status: stable, unchanged Assessment/Plan continue GT care elevate HOB GT feeds monitor H&H, prn transfusions H2B electrolyte replacement fu labs Subjective Allergies: Coded Allergies: NO KNOWN ALLERGIES (Verified Allergy, Unknown, 01/13/17) Subjective Above noted d/w grand daughter at bedside tolerating TF some GT site pain Objective Last 24 Hour Vital Signs Date Time Temp Pulse Resp B/P (MAP) Pulse Ox O2 Delivery O2 Flow Rate FiO2 01/20/17 20:26 97 Room Air 01/20/17 16:00 97.1 66 18 122/59 97 Room Air 01/20/17 12:32 98.2 66 18 112/64 97 Room Air 01/20/17 08:00 98.0 64 18 112/60 96 Room Air 01/20/17 04:00 98.4 75 19 124/69 97 01/20/17 00:15 98.2 65 18 110/50 94 Intake and Output 01/20/17 01/21/17 19:00 07:00 Intake Total 600 ml Output Total 400 ml Balance 200 ml Tube Feeding 600 ml Output Urine Total 400 ml Laboratory Tests 01/20/17 05:40: White Blood Count 4.3L, Red Blood Count 3.36L, Hemoglobin 10.9L, Hematocrit 32.4L, Mean Corpuscular Volume 96, Mean Corpuscular Hemoglobin 32.4H, Mean Corpuscular Hemoglobin Concent 33.6, Red Cell Distribution Width 11.9, Platelet Count 265, Mean Platelet Volume 5.6L, Neutrophils (%) (Auto) 39.6L, Lymphocytes (%) (Auto) 47.8H, Monocytes (%) (Auto) 8.0, Eosinophils (%) (Auto) 4.0H, Basophils (%) (Auto) 0.6, Sodium Level 138, Potassium Level 3.6, Chloride Level 107, Carbon Dioxide Level 24, Anion Gap 7, Blood Urea Nitrogen 10, Creatinine 0.8, Estimat Glomerular Filtration Rate , Glucose Level 103, Calcium Level 8.3L , Magnesium Level 1.7L Height (Feet): 5 Height (Inches): 5.00 Weight (Pounds): 141 Objective WDWN NCAT supple CTA RRR soft (+) GT no edema AMOS PERRY Jan 20, 2017 21:09
[2017-01-20] MEDS: cefTRIAXone 1 GM in D5W 55 ML IVPB SCH (23:55)
[2017-01-21] VITALS: BP 100/60
[2017-01-21 04:00] VITALS: BP 100/69
[2017-01-21] MEDS: D5 1/2NS w/KCl 20mEq 1,000 ML IV SCH ×2 (04:51→19:54)
[2017-01-21 07:43] LABS: ANION GAP 4 mmol/L (5-15); CALCIUM 8.3 MG/DL (8.5-10.1); CARBON DIOXIDE 27 MMOL/L (21-32); CHLORIDE 106 MMOL/L (98-107); CREATININE 0.6 MG/DL (0.55-1.30); POTASSIUM 3.8 MMOL/L (3.5-5.1); SODIUM 137 MMOL/L (136-145)
[2017-01-21 08:00] VITALS: BP 106/66
[2017-01-21 08:32] LABS: BASOPHILS % (AUTO) 0.5 % (0.0-2.0); EOSINOPHILS % (AUTO) 7.2 % (0.0-3.0); LYMPHOCYTES % (AUTO) 37.9 % (20.0-45.0); MEAN CORPUSCULAR HEMOGLOBIN 32.8 PG (27.0-31.0); MEAN CORPUSCULAR HGB CONC 34.2 G/DL (32.0-36.0); MEAN CORPUSCULAR VOLUME 96 FL (80-99); MEAN PLATELET VOLUME 5.2 FL (6.5-10.1); NEUTROPHILS % (AUTO) 47.3 % (45.0-75.0); PLATELET COUNT 269 K/UL (150-450); RED CELL DISTRIBUTION WIDTH 11.8 % (11.6-14.8); WHITE BLOOD COUNT 5.2 K/UL (4.8-10.8)
[2017-01-21] MEDS: levETIRAcetam 500mg/NS100ml 100 ML IVPB SCH ×2 (08:45→20:48)
[2017-01-21] MEDS: Heparin 5000 units/ml inj SUBQ SCH ×2 (08:46→20:49)
[2017-01-21 12:00] VITALS: BP 118/59
--- NOTE | 2017-01-21 12:00 | Pulmonology Progress Note ---
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 dementia Dysphagia s/p EGD with PEG 01/19 aspiration risk hypothyroidism DJD hypokalemia PLAN OF CARE MS floor MRI brain revealed acute CVA neuro follows ASA, statin, lipid panel CT head was negative for acute IC pathology EEG abnormal with high risk of seizure transformation, seizure precautions, no evidence for another episode of seizure Neuro follows Started on Keppra and dose increased ECHO with pEF 55% and RVSP of 28 Carotid Duplex with mild plaque 40-50% R bulb Venous Duplex BLE negative PT/OT/ST VSSE with evidence of dysphagia s/p PEG strict aspiration precautions/p PEG tolerates TF, lytes stable Dc plan to home with HH for PT/OT as per PMD patient is ready for discharge case discussed and evaluated by supervising physician Subjective Allergies: Coded Allergies: NO KNOWN ALLERGIES (Verified Allergy, Unknown, 01/13/17) Subjective s/p PEG 01/19 tolerates TF ambulated with PT family wants to take pt home Objective Last 24 Hour Vital Signs Date Time Temp Pulse Resp B/P (MAP) Pulse Ox O2 Delivery O2 Flow Rate FiO2 01/21/17 08:00 98.1 80 20 106/66 95 Room Air 01/21/17 06:34 97.9 01/21/17 04:00 97.9 74 18 100/69 95 Room Air 01/21/17 00:00 97.4 72 16 100/60 93 Room Air 01/20/17 20:26 97 Room Air 01/20/17 20:00 98.6 70 16 131/64 96 Room Air 01/20/17 16:00 97.1 66 18 122/59 97 Room Air 01/20/17 12:32 98.2 66 18 112/64 97 Room Air Objective General Appearance: no acute distress, bedridden HEENT: normocephalic, atraumatic Respiratory/Chest: lungs clear, no accessory muscle use Cardiovascular: normal rate, regular rhythm Abdomen: soft, non tender, non distended, G tube with TF, Neurologic/Psychiatric: abnormal gait, alert Musculoskeletal: atrophy - BLE Laboratory Tests 01/21/17 04:30: White Blood Count 5.2, Red Blood Count 3.50L, Hemoglobin 11.5L, Hematocrit 33.6L , Mean Corpuscular Volume 96, Mean Corpuscular Hemoglobin 32.8H, Mean Corpuscular Hemoglobin Concent 34.2, Red Cell Distribution Width 11.8, Platelet Count 269, Mean Platelet Volume 5.2L, Neutrophils (%) (Auto) 47.3, Lymphocytes ( %) (Auto) 37.9, Monocytes (%) (Auto) 7.0, Eosinophils (%) (Auto) 7.2H, Basophils (%) (Auto) 0.5, Sodium Level 137, Potassium Level 3.8, Chloride Level 106, Carbon Dioxide Level 27, Anion Gap 4L, Blood Urea Nitrogen 11, Creatinine 0.6, Estimat Glomerular Filtration Rate , Glucose Level 100, Calcium Level 8.3L Current Medications Medications (Trade) Dose Ordered Sig/Jere Route PRN Reason Start Time Stop Time Status Last Admin Dose Admin Acetaminophen (Tylenol) 650 mg Q6H PRN ORAL Mild Pain/Temp > 100.5 01/15/17 23:30 02/14/17 23:29 Acetaminophen/ Hydrocodone Bitart ([place] 5/325) 1 tab Q4H PRN ORAL Moderate Pain (Pain Scale 4-6) 01/19/17 13:00 01/25/17 12:59 01/21/17 05:35 Ceftriaxone Sodium 1 gm/ Dextrose 55 ml @ 110 mls/hr Q24H IVPB 01/16/17 00:00 01/23/17 00:00 01/20/17 23:55 Dextrose/ Electrolytes 1,000 ml @ 75 mls/hr [id number] IV 01/18/17 11:00 02/17/17 10:59 01/21/17 04:51 Heparin Sodium (Porcine) (Heparin 5000 units/ml) 5,000 units EVERY 12 HOURS SUBQ 01/14/17 21:00 02/12/17 12:59 01/21/17 08:46 Levetiracetam 100 ml @ 400 mls/hr Q12HR IVPB 01/14/17 21:00 02/12/17 20:59 01/21/17 08:45 Lorazepam (Ativan 2mg/ml 1ml) 1 mg Q4H PRN IV Agitation 01/14/17 19:45 01/21/17 19:44 01/19/17 13:26 Lorazepam (Ativan 2mg/ml 1ml) 2 mg Q1H PRN IV For Seizures 01/19/17 13:00 01/26/17 12:59 Menthol/Methyl Salicylate (Bengay) 1 applic FOUR TIMES A DAY PRN TOPIC pain 01/14/17 18:00 02/12/17 13:59 Risperidone (RisperDAL) 2 mg BEDTIME ORAL 01/16/17 21:00 02/15/17 20:59 01/20/17 20:46 [facility] NP Jan 21, 2017 12:00
--- NOTE | 2017-01-21 12:54 | Internal Med Progress Note ---
Subjective Physician Name Carlos Ortega Attending Physician Hans Weston MD Current Medications Medications (Trade) Dose Ordered Sig/Jere Route PRN Reason Start Time Stop Time Status Last Admin Dose Admin Acetaminophen (Tylenol) 650 mg Q6H PRN ORAL Mild Pain/Temp > 100.5 01/15/17 23:30 02/14/17 23:29 Acetaminophen/ Hydrocodone Bitart ([place] 5/325) 1 tab Q4H PRN ORAL Moderate Pain (Pain Scale 4-6) 01/19/17 13:00 01/25/17 12:59 01/21/17 05:35 Ceftriaxone Sodium 1 gm/ Dextrose 55 ml @ 110 mls/hr Q24H IVPB 01/16/17 00:00 01/23/17 00:00 01/20/17 23:55 Dextrose/ Electrolytes 1,000 ml @ 75 mls/hr [id number] IV 01/18/17 11:00 02/17/17 10:59 01/21/17 04:51 Heparin Sodium (Porcine) (Heparin 5000 units/ml) 5,000 units EVERY 12 HOURS SUBQ 01/14/17 21:00 02/12/17 12:59 01/21/17 08:46 Levetiracetam 100 ml @ 400 mls/hr Q12HR IVPB 01/14/17 21:00 02/12/17 20:59 01/21/17 08:45 Lorazepam (Ativan 2mg/ml 1ml) 1 mg Q4H PRN IV Agitation 01/14/17 19:45 01/21/17 19:44 01/19/17 13:26 Lorazepam (Ativan 2mg/ml 1ml) 2 mg Q1H PRN IV For Seizures 01/19/17 13:00 01/26/17 12:59 Menthol/Methyl Salicylate (Bengay) 1 applic FOUR TIMES A DAY PRN TOPIC pain 01/14/17 18:00 02/12/17 13:59 Risperidone (RisperDAL) 2 mg BEDTIME ORAL 01/16/17 21:00 02/15/17 20:59 01/20/17 20:46 Allergies: Coded Allergies: NO KNOWN ALLERGIES (Verified Allergy, Unknown, 01/13/17) Subjective 86 YO M admitted with new onset seizure. Now acute cerebral vascular accident. Cover for Int Med-Dr Weston. S/P PEG placement 01/19/17. Family now requesting discharge home with home health. Objective Last Vital Signs Date Time Temp Pulse Resp B/P (MAP) Pulse Ox O2 Delivery O2 Flow Rate FiO2 01/21/17 08:00 98.1 80 20 106/66 95 Room Air 01/19/17 10:30 3.0 01/19/17 08:00 32 Laboratory Tests Test 01/21/17 04:30 White Blood Count 5.2 K/UL (4.8-10.8) Red Blood Count 3.50 M/UL (4.70-6.10) L Hemoglobin 11.5 G/DL (14.2-18.0) L Hematocrit 33.6 % (42.0-52.0) L Mean Corpuscular Volume 96 FL (80-99) Mean Corpuscular Hemoglobin 32.8 PG (27.0-31.0) H Mean Corpuscular Hemoglobin Concent 34.2 G/DL (32.0-36.0) Red Cell Distribution Width 11.8 % (11.6-14.8) Platelet Count 269 K/UL (150-450) Mean Platelet Volume 5.2 FL (6.5-10.1) L Neutrophils (%) (Auto) 47.3 % (45.0-75.0) Lymphocytes (%) (Auto) 37.9 % (20.0-45.0) Monocytes (%) (Auto) 7.0 % (1.0-10.0) Eosinophils (%) (Auto) 7.2 % (0.0-3.0) H Basophils (%) (Auto) 0.5 % (0.0-2.0) Sodium Level 137 MMOL/L (136-145) Potassium Level 3.8 MMOL/L (3.5-5.1) Chloride Level 106 MMOL/L (98-107) Carbon Dioxide Level 27 MMOL/L (21-32) Anion Gap 4 mmol/L (5-15) L Blood Urea Nitrogen 11 mg/dL (7-18) Creatinine 0.6 MG/DL (0.55-1.30) Estimat Glomerular Filtration Rate mL/min (>60) Glucose Level 100 MG/DL (74-106) Calcium Level 8.3 MG/DL (8.5-10.1) L Objective General Appearance: WD/WN, no apparent distress, alert EENT: PERRL/EOMI, normal ENT inspection Neck: non-tender, normal alignment, supple, normal inspection Cardiovascular: normal peripheral pulses, normal rate, regular rhythm, no gallop/murmur, no JVD Respiratory/Chest: chest wall non-tender, lungs clear, normal breath sounds, no respiratory distress, no accessory muscle use Abdomen: normal bowel sounds, non tender, soft, no organomegaly, no mass, abnormal bowel sounds Extremities: normal range of motion 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 See neurology note. 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 Cont keppra (4) Fever Assessment & Plan: Await urine and blood cultures. CXR=retrocardiac opacity. Start empiric ceftriaxone and vanco. (5) Pneumonia Assessment & Plan: Retrocardiac opacity; continue vanco and ceftriaxone. Await culture results. (6) Dysphagia Assessment & Plan: Video swallow=aspiration. Await PEG placement 01/19/17. Status: not improved Assessment/Plan Discharge planning: Family requests home with home health. Discussed with family at bedside. CARLOS ORTEGA Jan 21, 2017 12:54
[2017-01-21 16:00] VITALS: BP 109/62
[2017-01-21] MEDS ORDERED: Vancomycin 1gm in D5W 275ml IVPB SCH (17:00)
--- NOTE | 2017-01-21 20:19 | General Progress Note ---
Assessment/Plan Assessment/Plan Assessment (1) Encounter for PEG (percutaneous endoscopic gastrostomy) ICD Codes: Z43.1 - Encounter for attention to gastrostomy SNOMED: 890292995, 820120238 (2) Dysphagia ICD Codes: R13.10 - Dysphagia, unspecified SNOMED: 92259230, 183408301 (3) Pneumonia ICD Codes: J18.9 - Pneumonia, unspecified organism SNOMED: 972674014 (4) old R MCA ischemic stroke (5) Hypothyroidism ICD Codes: E03.9 - Hypothyroidism, unspecified SNOMED: 08405074 (6) At high risk for aspiration ICD Codes: Z91.89 - Other specified personal risk factors, not elsewhere classified SNOMED: 888436243 (7) Dementia ICD Codes: F03.90 - Unspecified dementia without behavioral disturbance SNOMED: 46527916 (8) CVA (cerebral vascular accident) ICD Codes: I63.9 - Cerebral infarction, unspecified SNOMED: 112010210 Status: stable, unchanged Assessment/Plan continue GT care elevate HOB GT feeds monitor H&H, prn transfusions H2B electrolyte replacement fu labs Subjective Allergies: Coded Allergies: NO KNOWN ALLERGIES (Verified Allergy, Unknown, 01/13/17) Subjective Above noted tolerating TF no complaints Objective Last 24 Hour Vital Signs Date Time Temp Pulse Resp B/P (MAP) Pulse Ox O2 Delivery O2 Flow Rate FiO2 01/21/17 18:11 97 Room Air 01/21/17 16:00 98.2 73 18 109/62 95 Room Air 01/21/17 12:00 98.0 72 17 118/59 97 Room Air 01/21/17 08:00 98.1 80 20 106/66 95 Room Air 01/21/17 06:34 97.9 01/21/17 04:00 97.9 74 18 100/69 95 Room Air 01/21/17 00:00 97.4 72 16 100/60 93 Room Air 01/20/17 20:26 97 Room Air Intake and Output 01/21/17 01/22/17 19:00 07:00 Intake Total 795 ml 135 ml Output Total 600 ml Balance 195 ml 135 ml IV Total 75 ml 75 ml Tube Feeding 720 ml 60 ml Output Urine Total 600 ml Laboratory Tests 01/21/17 04:30: White Blood Count 5.2, Red Blood Count 3.50L, Hemoglobin 11.5L, Hematocrit 33.6L , Mean Corpuscular Volume 96, Mean Corpuscular Hemoglobin 32.8H, Mean Corpuscular Hemoglobin Concent 34.2, Red Cell Distribution Width 11.8, Platelet Count 269, Mean Platelet Volume 5.2L, Neutrophils (%) (Auto) 47.3, Lymphocytes ( %) (Auto) 37.9, Monocytes (%) (Auto) 7.0, Eosinophils (%) (Auto) 7.2H, Basophils (%) (Auto) 0.5, Sodium Level 137, Potassium Level 3.8, Chloride Level 106, Carbon Dioxide Level 27, Anion Gap 4L, Blood Urea Nitrogen 11, Creatinine 0.6, Estimat Glomerular Filtration Rate , Glucose Level 100, Calcium Level 8.3L Height (Feet): 5 Height (Inches): 5.00 Weight (Pounds): 141 Objective WDWN NCAT supple CTA RRR soft (+) GT no edema AMOS PERRY Jan 21, 2017 20:19
[2017-01-21 20:22] VITALS: BP 124/64
[2017-01-21] MEDS: Norco 5mg/325mg tab GT PRN (20:48)
[2017-01-22] MEDS: cefTRIAXone 1 GM in D5W 55 ML IVPB SCH ×2
[2017-01-22 00:40] VITALS: BP 109/65
[2017-01-22 04:00] VITALS: BP 125/68
[2017-01-22 08:00] VITALS: BP 106/67
[2017-01-22 08:21] LABS: BASOPHILS % (AUTO) 0.9 % (0.0-2.0); EOSINOPHILS % (AUTO) 9.4 % (0.0-3.0); LYMPHOCYTES % (AUTO) 29.6 % (20.0-45.0); MEAN CORPUSCULAR HEMOGLOBIN 31.7 PG (27.0-31.0); MEAN CORPUSCULAR HGB CONC 33.1 G/DL (32.0-36.0); MEAN CORPUSCULAR VOLUME 96 FL (80-99); MEAN PLATELET VOLUME 5.8 FL (6.5-10.1); MONOCYTES % (AUTO) 7.6 % (1.0-10.0); NEUTROPHILS % (AUTO) 52.4 % (45.0-75.0); PLATELET COUNT 275 K/UL (150-450); RED BLOOD COUNT 3.42 M/UL (4.70-6.10); RED CELL DISTRIBUTION WIDTH 12.1 % (11.6-14.8); WHITE BLOOD COUNT 4.8 K/UL (4.8-10.8)
[2017-01-22 08:27] LABS: ANION GAP 6 mmol/L (5-15); CALCIUM 8.4 MG/DL (8.5-10.1); CARBON DIOXIDE 26 MMOL/L (21-32); CHLORIDE 106 MMOL/L (98-107); CREATININE 0.7 MG/DL (0.55-1.30); POTASSIUM 3.8 MMOL/L (3.5-5.1); SODIUM 138 MMOL/L (136-145)
[2017-01-22] MEDS: levETIRAcetam 500mg/NS100ml 100 ML IVPB SCH (09:26)
[2017-01-22] MEDS: D5 1/2NS w/KCl 20mEq 1,000 ML IV SCH (09:26)
[2017-01-22] MEDS: Heparin 5000 units/ml inj SUBQ SCH (09:29)
--- NOTE | 2017-01-22 10:15 | GI Progress Note ---
Assessment/Plan Problems: (1) Encounter for PEG (percutaneous endoscopic gastrostomy) ICD Codes: Z43.1 - Encounter for attention to gastrostomy SNOMED: 432472326, 105313829 (2) Dysphagia ICD Codes: R13.10 - Dysphagia, unspecified SNOMED: 16894039, 666045937 (3) Pneumonia ICD Codes: J18.9 - Pneumonia, unspecified organism SNOMED: 774443264 (4) old R MCA ischemic stroke (5) Hypothyroidism ICD Codes: E03.9 - Hypothyroidism, unspecified SNOMED: 50500737 (6) At high risk for aspiration ICD Codes: Z91.89 - Other specified personal risk factors, not elsewhere classified SNOMED: 316837264 (7) Dementia ICD Codes: F03.90 - Unspecified dementia without behavioral disturbance SNOMED: 67746020 (8) CVA (cerebral vascular accident) ICD Codes: I63.9 - Cerebral infarction, unspecified SNOMED: 042680171 Status: stable Status Narrative Discussed with Dr. Mix. Assessment/Plan dysphagia >> s/p G Tube placement, will require bolus feedings at home. - fu nutrition recs >> Osmolite 1.2 - aspiration precautions >> strict NPO, HOB >30. okay for DC per GI standpoint continue GT care elevate HOB monitor H&H, prn transfusions H2B electrolyte replacement fu labs The patient was seen and examined at bedside and all new and available data was reviewed in the patients chart. I agree with the above findings, impression and plan. (Patient seen earlier today. Signature stamp does not reflect patient encounter time.). - Marylu Mix MD Subjective Subjective limited Objective Last 24 Hour Vital Signs Date Time Temp Pulse Resp B/P (MAP) Pulse Ox O2 Delivery O2 Flow Rate FiO2 01/22/17 08:00 98.7 78 18 106/67 95 01/22/17 04:00 95 Room Air 01/22/17 04:00 98.2 77 16 125/68 95 01/22/17 00:41 96 Room Air 01/22/17 00:40 98.1 70 19 109/65 96 01/21/17 21:51 98.0 01/21/17 20:30 97 Room Air 01/21/17 20:22 98.0 73 17 124/64 97 01/21/17 18:11 97 Room Air 12/3/17 16:00 98.2 73 18 109/62 95 Room Air 01/21/17 12:00 98.0 72 17 118/59 97 Room Air Laboratory Tests Test 01/22/17 07:17 White Blood Count 4.8 K/UL (4.8-10.8) Red Blood Count 3.42 M/UL (4.70-6.10) L Hemoglobin 10.8 G/DL (14.2-18.0) L Hematocrit 32.8 % (42.0-52.0) L Mean Corpuscular Volume 96 FL (80-99) Mean Corpuscular Hemoglobin 31.7 PG (27.0-31.0) H Mean Corpuscular Hemoglobin Concent 33.1 G/DL (32.0-36.0) Red Cell Distribution Width 12.1 % (11.6-14.8) Platelet Count 275 K/UL (150-450) Mean Platelet Volume 5.8 FL (6.5-10.1) L Neutrophils (%) (Auto) 52.4 % (45.0-75.0) Lymphocytes (%) (Auto) 29.6 % (20.0-45.0) Monocytes (%) (Auto) 7.6 % (1.0-10.0) Eosinophils (%) (Auto) 9.4 % (0.0-3.0) H Basophils (%) (Auto) 0.9 % (0.0-2.0) Sodium Level 138 MMOL/L (136-145) Potassium Level 3.8 MMOL/L (3.5-5.1) Chloride Level 106 MMOL/L (98-107) Carbon Dioxide Level 26 MMOL/L (21-32) Anion Gap 6 mmol/L (5-15) Blood Urea Nitrogen 12 mg/dL (7-18) Creatinine 0.7 MG/DL (0.55-1.30) Estimat Glomerular Filtration Rate mL/min (>60) Glucose Level 137 MG/DL (74-106) H Calcium Level 8.4 MG/DL (8.5-10.1) L Height (Feet): 5 Height (Inches): 5.00 Weight (Pounds): 141 General Appearance: WD/WN, no apparent distress, alert Cardiovascular: normal rate Respiratory/Chest: normal breath sounds, no respiratory distress Abdominal Exam: normal bowel sounds, non tender, soft, GT site - c/d/i Extremities: non-tender Lori Anderson N.P. Jan 22, 2017 10:15 MAURICIO MIX Jan 23, 2017 10:28
--- NOTE | 2017-01-22 10:43 | Internal Med Progress Note ---
Subjective Date of Service: Jan 22, 2017 Physician Name Carlos Ortega Attending Physician Hans Weston MD Current Medications Medications (Trade) Dose Ordered Sig/Jere Route PRN Reason Start Time Stop Time Status Last Admin Dose Admin Acetaminophen (Tylenol) 650 mg Q6H PRN ORAL Mild Pain/Temp > 100.5 01/15/17 23:30 02/14/17 23:29 Acetaminophen/ Hydrocodone Bitart ([place] 5/325) 1 tab Q4H PRN GT Moderate Pain (Pain Scale 4-6) 01/21/17 16:00 01/25/17 12:59 01/21/17 20:48 Ceftriaxone Sodium 1 gm/ Dextrose 55 ml @ 110 mls/hr Q24H IVPB 01/16/17 00:00 01/23/17 00:00 01/22/17 00:00 Dextrose/ Electrolytes 1,000 ml @ 75 mls/hr [id number] IV 01/18/17 11:00 02/17/17 10:59 01/22/17 09:26 Heparin Sodium (Porcine) (Heparin 5000 units/ml) 5,000 units EVERY 12 HOURS SUBQ 01/14/17 21:00 02/12/17 12:59 01/22/17 09:29 Levetiracetam 100 ml @ 400 mls/hr Q12HR IVPB 01/14/17 21:00 02/12/17 20:59 01/22/17 09:26 Lorazepam (Ativan 2mg/ml 1ml) 2 mg Q1H PRN IV For Seizures 01/19/17 13:00 01/26/17 12:59 Menthol/Methyl Salicylate (Bengay) 1 applic FOUR TIMES A DAY PRN TOPIC pain 01/14/17 18:00 02/12/17 13:59 Risperidone (RisperDAL) 2 mg BEDTIME GT 01/21/17 21:00 02/15/17 20:59 01/21/17 20:48 Allergies: Coded Allergies: NO KNOWN ALLERGIES (Verified Allergy, Unknown, 01/13/17) ROS Limited/Unobtainable: No Constitutional: Reports: no symptoms HEENT: Reports: no symptoms Cardiovascular: Reports: no symptoms Respiratory: Reports: no symptoms Gastrointestinal/Abdominal: Reports: no symptoms Genitourinary: Reports: no symptoms Neurologic/Psychiatric: Reports: seizure, weakness Subjective 86 YO M admitted with new onset seizure. Now acute cerebral vascular accident. Cover for Int Med-Dr Weston. S/P PEG placement 01/19/17. Family now requesting discharge home with home health. Objective Last Vital Signs Date Time Temp Pulse Resp B/P (MAP) Pulse Ox O2 Delivery O2 Flow Rate FiO2 01/22/17 08:00 98.7 78 18 106/67 95 01/22/17 04:00 Room Air 01/19/17 10:30 3.0 01/19/17 08:00 32 Laboratory Tests Test 01/22/17 07:17 White Blood Count 4.8 K/UL (4.8-10.8) Red Blood Count 3.42 M/UL (4.70-6.10) L Hemoglobin 10.8 G/DL (14.2-18.0) L Hematocrit 32.8 % (42.0-52.0) L Mean Corpuscular Volume 96 FL (80-99) Mean Corpuscular Hemoglobin 31.7 PG (27.0-31.0) H Mean Corpuscular Hemoglobin Concent 33.1 G/DL (32.0-36.0) Red Cell Distribution Width 12.1 % (11.6-14.8) Platelet Count 275 K/UL (150-450) Mean Platelet Volume 5.8 FL (6.5-10.1) L Neutrophils (%) (Auto) 52.4 % (45.0-75.0) Lymphocytes (%) (Auto) 29.6 % (20.0-45.0) Monocytes (%) (Auto) 7.6 % (1.0-10.0) Eosinophils (%) (Auto) 9.4 % (0.0-3.0) H Basophils (%) (Auto) 0.9 % (0.0-2.0) Sodium Level 138 MMOL/L (136-145) Potassium Level 3.8 MMOL/L (3.5-5.1) Chloride Level 106 MMOL/L (98-107) Carbon Dioxide Level 26 MMOL/L (21-32) Anion Gap 6 mmol/L (5-15) Blood Urea Nitrogen 12 mg/dL (7-18) Creatinine 0.7 MG/DL (0.55-1.30) Estimat Glomerular Filtration Rate mL/min (>60) Glucose Level 137 MG/DL (74-106) H Calcium Level 8.4 MG/DL (8.5-10.1) L Intake and Output 01/22/17 01/23/17 19:00 07:00 Intake Total 180 ml Balance 180 ml Tube Feeding 180 ml Objective General Appearance: WD/WN, no apparent distress, alert EENT: PERRL/EOMI, normal ENT inspection Neck: non-tender, normal alignment, supple, normal inspection Cardiovascular: normal peripheral pulses, normal rate, regular rhythm, no gallop/murmur, no JVD Respiratory/Chest: chest wall non-tender, lungs clear, normal breath sounds, no respiratory distress, no accessory muscle use Abdomen: normal bowel sounds, non tender, soft, no organomegaly, no mass, abnormal bowel sounds Extremities: normal range of motion 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 See neurology note. 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 Cont keppra (4) Fever Assessment & Plan: Await urine and blood cultures. CXR=retrocardiac opacity. Start empiric ceftriaxone and vanco. (5) Pneumonia Assessment & Plan: Retrocardiac opacity; continue vanco and ceftriaxone. Await culture results. (6) Dysphagia Assessment & Plan: Video swallow=aspiration. Await PEG placement 01/19/17. Assessment/Plan Discharge planning: Family requests home with home health-await acceptance [facility]. Discussed with family at bedside. CARLOS ORTEGA Jan 22, 2017 10:43
--- NOTE | 2017-01-22 15:36 | Pulmonology Progress Note ---
Assessment/Plan Problems: (1) Feeding by G-tube (2) At high risk for aspiration (3) New onset seizure (4) CVA (cerebral vascular accident) (5) Limited mobility (6) Dementia Assessment/Plan mental status better tolerating gtube feeding doing better dc planning in process Subjective ROS Limited/Unobtainable: No Interval Events: looks comfortable Allergies: Coded Allergies: NO KNOWN ALLERGIES (Verified Allergy, Unknown, 01/13/17) Objective Last 24 Hour Vital Signs Date Time Temp Pulse Resp B/P (MAP) Pulse Ox O2 Delivery O2 Flow Rate FiO2 01/22/17 12:00 Room Air 01/22/17 08:00 Room Air 01/22/17 08:00 98.7 78 18 106/67 95 01/22/17 04:00 95 Room Air 01/22/17 04:00 98.2 77 16 125/68 95 01/22/17 00:41 96 Room Air 01/22/17 00:40 98.1 70 19 109/65 96 01/21/17 21:51 98.0 01/21/17 20:30 97 Room Air 01/21/17 20:22 98.0 73 17 124/64 97 01/21/17 18:11 97 Room Air 01/21/17 16:00 98.2 73 18 109/62 95 Room Air Intake and Output 01/22/17 01/23/17 19:00 07:00 Intake Total 580 ml Balance 580 ml Free Water 100 ml Tube Feeding 480 ml Objective Lines, tubes and drains: peripheral HEENT: normocephalic, atraumatic Neck: non-tender, normal alignment Respiratory/Chest: chest wall non-tender, lungs clear Cardiovascular/Chest: normal peripheral pulses, regular rhythm, no gallop/ murmur Abdomen: normal bowel sounds, non tender, Gtube in place Genitourinary/Rectal: normal genital exam Extremities: normal range of motion, non-tender Laboratory Tests 01/22/17 07:17: White Blood Count 4.8, Red Blood Count 3.42L, Hemoglobin 10.8L, Hematocrit 32.8L , Mean Corpuscular Volume 96, Mean Corpuscular Hemoglobin 31.7H, Mean Corpuscular Hemoglobin Concent 33.1, Red Cell Distribution Width 12.1, Platelet Count 275, Mean Platelet Volume 5.8L, Neutrophils (%) (Auto) 52.4, Lymphocytes ( %) (Auto) 29.6, Monocytes (%) (Auto) 7.6, Eosinophils (%) (Auto) 9.4H, Basophils (%) (Auto) 0.9, Sodium Level 138, Potassium Level 3.8, Chloride Level 106, Carbon Dioxide Level 26, Anion Gap 6, Blood Urea Nitrogen 12, Creatinine 0.7, Estimat Glomerular Filtration Rate , Glucose Level 137H, Calcium Level 8.4L Current Medications Medications (Trade) Dose Ordered Sig/Jere Route PRN Reason Start Time Stop Time Status Last Admin Dose Admin Acetaminophen (Tylenol) 650 mg Q6H PRN ORAL Mild Pain/Temp > 100.5 01/15/17 23:30 02/14/17 23:29 Acetaminophen/ Hydrocodone Bitart ([place] 5/325) 1 tab Q4H PRN GT Moderate Pain (Pain Scale 4-6) 01/21/17 16:00 01/25/17 12:59 01/21/17 20:48 Ceftriaxone Sodium 1 gm/ Dextrose 55 ml @ 110 mls/hr Q24H IVPB 01/16/17 00:00 01/23/17 00:00 01/22/17 00:00 Dextrose/ Electrolytes 1,000 ml @ 75 mls/hr [id number] IV 01/18/17 11:00 02/17/17 10:59 01/22/17 09:26 Heparin Sodium (Porcine) (Heparin 5000 units/ml) 5,000 units EVERY 12 HOURS SUBQ 01/14/17 21:00 02/12/17 12:59 01/22/17 09:29 Levetiracetam 100 ml @ 400 mls/hr Q12HR IVPB 01/14/17 21:00 02/12/17 20:59 01/22/17 09:26 Lorazepam (Ativan 2mg/ml 1ml) 2 mg Q1H PRN IV For Seizures 01/19/17 13:00 01/26/17 12:59 Menthol/Methyl Salicylate (Bengay) 1 applic FOUR TIMES A DAY PRN TOPIC pain 01/14/17 18:00 02/12/17 13:59 Risperidone (RisperDAL) 2 mg BEDTIME GT 01/21/17 21:00 02/15/17 20:59 01/21/17 20:48 SAIDA MAYER Jan 22, 2017 15:36
[2017-01-22] MEDS ORDERED: KEPPRA500 M4 ORAL (15:50)
[2017-01-22] MEDS ORDERED: RISPERDAL2 MG GT (15:50)
[2017-01-22 16:00] VITALS: BP 116/66
[2017-01-22] MEDS: Norco 5mg/325mg tab GT PRN (17:39)
[2017-01-22] MEDS ORDERED: levETIRAcetam 500mg/5ml Liquid NG SCH (20:00)
--- NOTE | 2017-01-22 23:21 | General Progress Note ---
Assessment/Plan Status: stable Assessment/Plan delirium agitation -cont current meds Subjective Date patient seen: Jan 22, 2017 Neurologic/Psychiatric: Reports: anxiety, depressed, emotional problems Allergies: Coded Allergies: NO KNOWN ALLERGIES (Verified Allergy, Unknown, 01/13/17) Subjective the pt is still confused and pw waxing and waning of consciousness. the pt is less agitated Objective Last 24 Hour Vital Signs Date Time Temp Pulse Resp B/P (MAP) Pulse Ox O2 Delivery O2 Flow Rate FiO2 01/22/17 18:38 98.3 01/22/17 16:00 98.3 70 18 116/66 96 01/22/17 16:00 Room Air 01/22/17 12:00 Room Air 01/22/17 08:00 Room Air 01/22/17 08:00 98.7 78 18 106/67 95 01/22/17 04:00 95 Room Air 01/22/17 04:00 98.2 77 16 125/68 95 01/22/17 00:41 96 Room Air 01/22/17 00:40 98.1 70 19 109/65 96 Intake and Output 01/22/17 01/23/17 19:00 07:00 Intake Total 640 ml Balance 640 ml Free Water 100 ml Tube Feeding 540 ml # Voids 3 # Bowel Movements 1 Laboratory Tests 01/22/17 07:17: White Blood Count 4.8, Red Blood Count 3.42L, Hemoglobin 10.8L, Hematocrit 32.8L , Mean Corpuscular Volume 96, Mean Corpuscular Hemoglobin 31.7H, Mean Corpuscular Hemoglobin Concent 33.1, Red Cell Distribution Width 12.1, Platelet Count 275, Mean Platelet Volume 5.8L, Neutrophils (%) (Auto) 52.4, Lymphocytes ( %) (Auto) 29.6, Monocytes (%) (Auto) 7.6, Eosinophils (%) (Auto) 9.4H, Basophils (%) (Auto) 0.9, Sodium Level 138, Potassium Level 3.8, Chloride Level 106, Carbon Dioxide Level 26, Anion Gap 6, Blood Urea Nitrogen 12, Creatinine 0.7, Estimat Glomerular Filtration Rate , Glucose Level 137H, Calcium Level 8.4L Height (Feet): 5 Height (Inches): 5.00 Weight (Pounds): 141 General Appearance: alert, confused Arvin Manrique M.D. Jan 22, 2017 23:21
[2017-01-25] MEDS ORDERED: ATORVASTATIN CA10 MG ORAL (08:28)
[2017-01-25] MEDS ORDERED: ASPIRIN81 MG ORAL (08:28)
[2017-01-25] MEDS ORDERED: KEPPRA500 M4 ORAL (08:39)
--- NOTE | 2017-01-25 08:39 | Discharge Summary ---
Discharge Summary Hospital Course Date of Admission Jan 13, 2017 at 03:48 Date of Discharge Jan 22, 2017 at 20:50 Admitting Diagnosis HPI Dario Johnson is a 86 year old male who was admitted on Jan 13, 2017 at 03:48 for New Onset Seizure Hospital Course dc summary #[id number] Discharge Medications New Medications: Aspirin* (Aspirin*) 81 Mg Tab.chew 81 MG ORAL DAILY, #30 TAB Atorvastatin Calcium* (Lipitor*) 10 Mg Tablet 10 MG ORAL BEDTIME, #30 TAB Levetiracetam (Keppra) 500 Mg Tablet 750 MG ORAL EVERY 12 HOURS for 30 Days, #60 TAB 0 Refills Risperidone* (Risperdal*) 2 Mg Tablet 2 MG GT BEDTIME for 30 Days, TAB Discharge Condition Upon Discharge: stable Discharge Disposition Patient was discharged to Home with Home Health(06) Discharge Diagnoses: Sinan (Ayse)Hue NP Jan 25, 2017 08:39
--- NOTE | 2017-01-25 11:05 | Diagnostic Imaging Report ---
Indications: DYSPHAGIA Technique: Patient ingested multiple substances under the supervision of speech pathology. Video fluoroscopic recording performed. Total fluoroscopy time 230 seconds. Total dose area product 0.01364 mGycm2 Comparison: 01/17/2017 Findings: Ingestion of thin liquid barium demonstrates early pooling in the vallecula and puriform sinuses, significant delay in initiation of deglutition. Episode of silent aspiration of thin liquid barium was observed. With ingestion of the other substances, early pooling in the vallecula and perform sinuses noted. No evidence of aspiration or penetration. Impression: Positive for aspiration of thin liquid barium Other oromotor dysfunction, as described Please refer to speech pathology report for more detailed analysis
--- NOTE | 2017-01-25 20:15 | Discharge Summary 2 SIG ---
DATE OF ADMISSION: 01/13/2017 DATE OF DISCHARGE: 01/22/2017 REASON FOR ADMISSION: 86-year-old male presented with chief complaint of new onset of seizure. Apparently, the patient had a CVA in [place] with resultant left-sided hemiparesis along with closed head injury, status post fall in in August 2016. The patient had a witnessed seizure prior to presentation to ED. The patient initially was brought to [facility] for evaluation. Subsequently after evaluation at [facility], the patient was transferred to [facility] for insurance purposes. The patient was admitted for new onset of seizure and rule out CVA. HOSPITAL COURSE: The patient was admitted. Neurology consult was requested. The patient was started on Keppra. 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 Dose of Keppra was increased . EEG along with MRI of brain were ordered. The patient was started on aspirin. MRI of the brain subsequently showed small focus of restricted diffusion in the posterior right parietal lobe consistent with acute infarct, nonhemorrhagic. Much larger right middle cerebral artery distribution old infarct. Negative for acute intracranial bleeding or mass effect. Carotid duplex study revealed mild plaque 40% to 50% in the right and 20% to 30% in the left bulb area. Minimal degree of stenosis of common carotid artery (10%), minimal 20% to 30% in the internal carotid artery and external carotid artery. Vertebral artery appeared to be patent without evidence of stenosis or steal. Lipid panel revealed elevated LDL of 119 with normal total cholesterol and normal triglycerides. The patient was started on statin. The patient also noted to have elevated TSH. Dose of Synthroid was increased. 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 The patient was on seizure precautions. No evidence of another seizure activity while in the hospital. Keppra continued. Neurologist closely followed. Echocardiogram revealed preserved ejection fraction of 55%, right ventricular systolic pressure of 28. Venous duplex of bilateral lower extremities was negative. The patient was working with physical, occupational, and speech therapists. Speech therapist recommended video swallow evaluation which revealed evidence of dysphagia. GI consult was requested. The patient had subsequently undergone EGD with biopsy and PEG placement on 01/19/2017. Pathology results revealed no Helicobacter infection and showed [id number] chronic gastritis. The patient was on GI prophylaxis. Abdominal binder kept in place. Strict aspiration /reflux precautions maintained. with the head and reflux precaution. Head of bed was elevated. The patient was started on tube feeding and rate was increased to goal as tolerated. Patient was able to tolerate tube feeding. Electrolytes replaced as needed. Pain management provided. Bowel regimen instituted. The patient was seen by psychiatrist and diagnosed with delirium and agitation. Risperdal added to existing regimen. Blood cultures were negative. Mental status improved. The patient wanted to go home. Home health was arranged for physical and occupational therapy. The patient was stable for discharge. FINAL DIAGNOSES: 1. Acute right parietal lobe cerebrovascular accident. 2. 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 3. 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 4. Vascular dementia. 5. Dysphagia. 6. Status post esophagogastroduodenoscopy with percutaneous endoscopic gastrostomy placement on 01/19/2017. 7. Chronic gastritis. 8. Aspiration risk. 9. Hypothyroidism with elevated TSH. 10. Degenerative joint disease. 11. Hypokalemia. DISCHARGE MEDICATIONS: See medication reconciliation list. DISCHARGE INSTRUCTIONS: The patient was discharged to home with home health services. Follow up with primary medical doctor next week. Hans Weston M.D. Hue GarciaLenox Hill Hospitalgallito N.PDax DR: Alexander JOB#: [id number] CC: GENEVIEVE
== END 2017-01-22 20:50 | disposition home health service (06) | DRG 65 ==
LOC: 2E 03:48 → 3E 01-14 17:40
PROC: 0DB78ZX Excision of Stomach, Pylorus, Via Natural or Artificial Opening Endoscopic, Diagnostic (ICD-10-PCS; principal; 2017-01-19 09:45)
PROC: 0DH63UZ Insertion of Feeding Device into Stomach, Percutaneous Approach (ICD-10-PCS; principal; 2017-01-19 09:45)
DX: I63.8 Other cerebral infarction (principal); I69.354 Hemiplegia and hemiparesis following cerebral infarction affecting left non-dominant side; R13.10 Dysphagia, unspecified; G40.109 Localization-related (focal) (partial) symptomatic epilepsy and epileptic syndromes with simple partial seizures, not intractable, without status epilepticus; F01.50 Vascular dementia, unspecified severity, without behavioral disturbance, psychotic disturbance, mood disturbance, and anxiety; E03.9 Hypothyroidism, unspecified; M19.90 Unspecified osteoarthritis, unspecified site; D64.9 Anemia, unspecified; Z74.09 Other reduced mobility; I69.398 Other sequelae of cerebral infarction; Z91.81 History of falling; K29.50 Unspecified chronic gastritis without bleeding; E87.6 Hypokalemia; R45.1 Restlessness and agitation; R62.7 Adult failure to thrive
CPT/HCPCS: 36415; 70551; 71010; 74230; 80048; 80053; 80061; 82248; 82270; 82306; 82607; 82746; 82962; 83540; 83550; 83615; 83735; 84100; 84443; 84484; 85007; 85025; 85044; 85060; 85610; 85651; 85730; 86140; 86431; 87040; 93306; 93880; 93970; 94003; 94150; 94760; 95819; J8499

== ENCOUNTER 2017-02-28 10:08 | Outpatient (CLI) | payer MEDICARE, MEDICAID ==
[~2017-02-28 10:08] MED LIST: ASPIRIN81 MG ORAL; ATORVASTATIN CA10 MG ORAL; KEPPRA500 M4 ORAL; RISPERDAL2 MG GT
--- NOTE | 2017-03-07 15:21 | Diagnostic Imaging Report ---
Indication: Dysphasia Procedure and findings: Real-time fluoroscopic imaging performed in a lateral projection in conjunction with the speech pathologist evaluation. Variable consistencies of barium given per mouth. Findings: Significant abnormalities of both oral and pharyngeal phases of swallowing are demonstrated. Total fluoroscopic time 304 seconds no definite aspiration identified. No definite penetration identified with all consistencies. Abnormal video swallow. Please refer to speech pathology evaluation for more information.
== END 2017-02-28 12:08 | disposition home or self-care (01) ==
LOC: RAD 10:08
DX: R13.19 Other dysphagia (principal)
CPT/HCPCS: 74230

== ENCOUNTER 2017-03-14 09:00 | Outpatient (RCR) | payer MEDICARE, MEDICAID | END 2017-03-21 | disposition home or self-care (01) | LOC: STH 09:00 | DX: R13.12 Dysphagia, oropharyngeal phase (principal) | CPT/HCPCS: 92523; G8996; G8997 ==

== ENCOUNTER 2017-03-23 12:30 | Outpatient (RCR) | payer MEDICARE, MEDICAID | END 2017-04-18 | disposition home or self-care (01) | LOC: STH 12:30 | DX: R13.10 Dysphagia, unspecified (principal); R13.12 Dysphagia, oropharyngeal phase ==

== ENCOUNTER 2017-04-26 14:31 | Outpatient (CLI) | payer MEDICARE, MEDICAID ==
--- NOTE | 2017-04-26 16:25 | GI Initial Consult Note ---
MonicaLori Zeferino N.P. 04/26/17 1625: History of Present Illness General Date patient seen: Apr 26, 2017 Time patient seen: 16:13 Referring physician: PARISH Reason for Consultation: GT REMOVAL Present Illness HPI CHIEF COMPLAINT: GT removal HISTORY OF PRESENT ILLNESS: The patient had a cerebrovascular accident in [place] in August 2016. The patient has a resultant left-sided hemiparesis. The patient apparently had a closed head injury status post fall in August in [place]. Much of the history and physical is obtained from the patient's family , who is at the bedside. Patient was admitted to [facility] where GT was placed. He presents here with family members for GT removal. Patient had been followed by and now no longer needs his GT Med list reviewed/reconciled: Yes Allergies: Coded Allergies: NO KNOWN ALLERGIES (Verified Allergy, Unknown, 01/13/17) Patient History Limited by: medical condition History Provided By: Medical Record [facility] Narrative PAST MEDICAL HISTORY: Significant for: 1. Cerebrovascular accident in August 2016 as above. 2. 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 3. Closed head injury in August 2016 as above. PAST SURGICAL HISTORY: Significant for cholecystectomy. Social History: Denies: smoking, alcohol use, drug use, other Home Meds Active Scripts Levetiracetam (KEPPRA) 500 Mg Tablet, 750 MG ORAL EVERY 12 HOURS for 30 Days, # 60 TAB 0 Refills Prov:Sinan (Hue Rodney NP 01/25/17 Atorvastatin Calcium* (LIPITOR*) 10 Mg Tablet, 10 MG ORAL BEDTIME, #30 TAB Prov:Sinan (Hue Rodney NP 01/25/17 Aspirin* (ASPIRIN*) 81 Mg Tab.chew, 81 MG ORAL DAILY, #30 TAB Prov:Sinan (Hue Rodney NP 01/25/17 Risperidone* (RISPERDAL*) 2 Mg Tablet, 2 MG GT BEDTIME for 30 Days, TAB Prov:Cynthia Buchanan MD 01/22/17 Med list reviewed/reconciled: Yes Allergies: Coded Allergies: NO KNOWN ALLERGIES (Verified Allergy, Unknown, 01/13/17) Review of Systems All Other Systems: limited Physical Exam T 98.0 BP 130/62 P 56 100 RA Sp02 EP Interpretation: reviewed, normal General Appearance: well appearing, no apparent distress, alert Head: normocephalic EENT: PERRL/EOMI, normal ENT inspection Neck: supple Respiratory: normal breath sounds, no respiratory distress Cardiovascular: normal rate Gastrointestinal: normal inspection, non tender, soft, normal bowel sounds, non -distended Rectal: deferred Genitourinary: deferred Neurologic: normal inspection, alert, oriented x3, responsive Skin: normal inspection, normal color, no rash, warm/dry, palpation normal, well hydrated Lymphatic: normal inspection, no adenopathy GI: Plan Problems: (1) PEG (percutaneous endoscopic gastrostomy) adjustment/replacement/removal Plan GT removed by . - no shower x 24 hours. - dressing changes prn RTC prn Seen with Dr. Denton. Thank you for this patient referral. MAURICIO DENTON 05/02/17 1137: History of Present Illness Present Illness Home Meds Active Scripts Levetiracetam (KEPPRA) 500 Mg Tablet, 750 MG ORAL EVERY 12 HOURS for 30 Days, # 60 TAB 0 Refills Prov:Hue Menon NP (Vanchtein) 01/25/17 Atorvastatin Calcium* (LIPITOR*) 10 Mg Tablet, 10 MG ORAL BEDTIME, #30 TAB Prov:Sinan (Hue Rodney NP 01/25/17 Aspirin* (ASPIRIN*) 81 Mg Tab.chew, 81 MG ORAL DAILY, #30 TAB Prov:Hue Menon NP (Vanchtein) 01/25/17 Risperidone* (RISPERDAL*) 2 Mg Tablet, 2 MG GT BEDTIME for 30 Days, TAB Prov:Cynthia Buchanan MD 01/22/17 Allergies: Coded Allergies: NO KNOWN ALLERGIES (Verified Allergy, Unknown, 01/13/17) GI: Plan Plan The patient was seen and examined at bedside and all new and available data was reviewed in the patients chart. I agree with the above findings, impression and plan. (Patient seen earlier today. Signature stamp does not reflect patient encounter time.). - MD Monica Hamm,[facility] Zeferino N.P. Apr 26, 2017 16:25 MAURICIO DENTON May 02, 2017 11:37
== END 2017-04-26 15:03 | disposition home or self-care (01) ==
LOC: PAN 14:31
DX: Z43.1 Encounter for attention to gastrostomy (principal); G81.94 Hemiplegia, unspecified affecting left nondominant side; Z79.82 Long term (current) use of aspirin